=== PATIENT | male | born 1990 | race Caucasian/White ===

== ENCOUNTER 2019-10-12 17:22 | Emergency (ER) | payer OTHER, SELFPAY ==
--- NOTE | 2019-10-12 17:48 | PC.NURSE ---
1745 pt outside using phone.
[2019-10-12 18:15] VITALS: BP 150/92; PULSE 94; RESP 18; TEMP 36.8; O2SAT 98
--- NOTE | 2019-10-12 18:56 | ED_ITS ---
HPI - Alcohol General Chief Complaint: Toxicology Problem Stated Complaint: wants help to stop drinking Time Seen by Provider: 10/12/19 18:43 Source: patient Mode of arrival: Ambulatory Limitations: no limitations History of Present Illness HPI narrative: Patient is a 29-year-old male wanting help with drinking. He states he drinks at least a 12 pack a day, is already had 5 beers today. He when he decreases is drinking he starts getting shakes. He is ready to stop he is getting set up with counseling and therapy in [place]. He would like a detox center. However he is not ready to go there today. Related Data Allergies Allergy/AdvReac Type Severity Reaction Status Date / Time CEPHALEXIN Allergy Intermediate rash Uncoded 02/04/18 11:51 Review of Systems Review of Systems Narrative: GENERAL: Denies chills,fever HEENT: Denies throat pain RESPIRATORY: Denies dyspnea, cough, wheezing CARDIOVASCULAR: Denies chest pain, palpitations GASTROINTESTINAL: Denies nausea, vomiting MUSCULOSKELETAL: Denies extremity pain, injury SKIN: No rash, no laceration, no pruritus NEUROLOGIC: Denies weakness, dizziness, headache, numbness 8 point review of systems is negative except for those stated above and HPI Psychiatric Psychiatric: Reports system reviewed and no additional complaints, except as docu Patient History Social History Smoking Status: Current every day smoker Smoking Status: Current every day smoker alcohol intake frequency: 3 or more drinks per day Alcohol type: beer Substance Use Type: does not use Exam Initial Vital Signs Initial Vital Signs: Vital Signs Temperature 98.2 F 10/12/19 18:15 Pulse Rate 94 H 10/12/19 18:15 Respiratory Rate 18 10/12/19 18:15 Blood Pressure 150/92 H 10/12/19 18:15 Pulse Oximetry 98 10/12/19 18:15 GENERAL: Well-appearing, well-nourished and in no acute distress. CARDIOVASCULAR: peripheral pulses in tact, cap refill <2 sec RESPIRATORY: No respiratory distress, speaks in full sentences without difficulty EXTREMITIES: Normal range of motion, no clubbing or edema. Neurovascularly intact NEUROLOGICAL: Cranial nerves II through XII grossly intact. Normal gait and speech. SKIN: Warm, dry, no petechiae, no rashes or lesions. Course Vital Signs Vital signs: Vital Signs - 8 hr 10/12/19 18:15 Temperature 98.2 F Pulse Rate 94 H Respiratory Rate 18 Blood Pressure 150/92 H Pulse Oximetry 98 MDM - Alcohol MDM Narrative Medical decision making narrative: Patient is still actively drinking he is not seeking treatment today he shows no signs of withdrawal at this time. I discussed with him the process and however works, he is given phone numbers and information to call he will call tomorrow. Discharge Plan Departure Patient Disposition: Home Clinical Impression: Alcohol abuse Discharge Date/Time: 10/12/19 19:20 Instructions: DI for Delirium Tremens, DI for Alcohol Abuse Activity Restrictions/Additional Instructions: *You have been diagnosed with alcohol abuse *What to do: IT IS STRONGLY RECOMMENDED THAT YOU GO THROUGH DETOX UNDER MEDICAL SUPERVISION. You will need to call detox facilities tomorrow. You will need medical clearance done in the emergency department when a bed becomes available *Continue to take medications as directed *Follow up with your primary care provider in 2-3 days [facility] crisis, is one that we generally have most success with *Return to ER if you should have shaking, seizures, passing out or any new, worsening or concerning symptoms Referrals: Alcohol [facility] [Outside] Alcohol [facility] [Outside] Alcohol [facility] [Outside] Alcohol [facility] [Outside] Alcohol [facility] [Outside]
== END 2019-10-12 19:20 | disposition home or self-care (01) ==
PROVIDERS: Emergency Provider Emergency Medicine
DX: F10.20 Alcohol dependence, uncomplicated (principal)
CPT/HCPCS: 99282

== ENCOUNTER 2020-03-21 22:30 | Emergency (ER) | payer OTHER, MEDICAID, SELFPAY ==
[2020-03-21 22:42] VITALS: BP 157/107; PULSE 107; RESP 20; TEMP 36.6; O2SAT 100
--- NOTE | 2020-03-21 22:53 | ED.GENADULT ---
HPI - General Adult General Chief complaint: Toxicology Problem Stated complaint: SSRI withdrawal Time Seen by Provider: 03/21/20 22:40 Source: patient Mode of arrival: Ambulatory Limitations: no limitations History of Present Illness HPI narrative: Patient is a 29-year-old male here for evaluation of 2 issues. Patient states that he has been drinking. His last drink was approximately 1 hour prior to arrival here in the emergency department. He states that he has had issues with alcohol in the past. He does drink on a daily basis. Never withdrawn from alcohol. Has been in a rehab in the past. Is here for help with alcohol he is also here for he states is a withdrawal to his SSRI. He has not been on this medication for at least the past 2 weeks although he is somewhat uncertain as to when he exactly stop this medicine. He states that he stopped it under the direction of his prescribing provider because ?I could not handle the side effects ?patient states that he thinks is withdrawing from this medication because ?my mind is not clear ?he states that he has a difficult time remembering things. He does state that his difficult time saying things and remembering things both when he is sober and when he is drunk to he does not think it is the alcohol causing these problems. He denies any other associated symptoms. Related Data Allergies Allergy/AdvReac Type Severity Reaction Status Date / Time CEPHALEXIN Allergy Intermediate rash Uncoded 02/04/18 11:51 Review of Systems Constitutional Constitutional: Denies fever(s) and Denies headache(s) ENT Ears, Nose, Mouth, and Throat: Denies headache(s) Cardiovascular Cardiovascular: Denies chest pain and Denies dyspnea Respiratory Respiratory: Denies dyspnea Gastrointestinal Gastrointestinal: Denies abdominal pain and Denies vomiting Musculoskeletal Musculoskeletal: Denies myalgias and Denies arthralgias Integumentary/Breasts Skin/Breast: Denies rash Neurologic Neurologic: Reports confusion and Denies headache(s) Comments: Problems remembering and saying things Psychiatric Psychiatric: Reports confusion and Denies suicidal ideation Hematologic/Lymphatic Hematologic/Lymphatic: Denies easy bleeding and Denies easy bruising Allergic/Immunologic Allergic/Immunologic: Denies urticaria Patient History Medical History Alcohol abuse (Acute) Social History Smoking Status: Current every day smoker Smoking Status: Current every day smoker alcohol intake frequency: 3 or more drinks per day Alcohol type: beer Substance Use Type: does not use Exam Initial Vital Signs Initial Vital Signs: Vital Signs Temperature 97.9 F 03/21/20 22:42 Pulse Rate 107 H 03/21/20 22:42 Respiratory Rate 20 03/21/20 22:42 Blood Pressure 157/107 H 03/21/20 22:42 Pulse Oximetry 100 03/21/20 22:42 Const General: cooperative and comfortable HENMT Head: normal to inspection and normocephalic Resp Effort & Inspection: normal respiratory effort Cardio Rate: tachycardic Skin Lesions: no lesions Rashes: no rashes Neuro General: alert, awake and oriented x3 Gait: normal gait Motor: muscle tone normal throughout Extrem General: normal to inspection and No edema Psych Appearance: grossly normal and well kempt Scores GCS [place] coma scale eye opening: Spontaneous Elvira coma scale verbal response: Orientated [place] coma scale motor response: Obey commands Elvira coma scale total score: 15 Course Vital Signs Vital signs: Vital Signs - 8 hr 03/21/20 22:42 Temperature 97.9 F Pulse Rate 107 H Respiratory Rate 20 Blood Pressure 157/107 H Pulse Oximetry 100 Medical Decision Making [facility] Narrative Medical decision making narrative: Informed the patient that I do suspect that much of his speech and memory issues is most likely related to his alcohol use. Did admit to drinking alcohol and being intoxicated. Informed him that it is not my practice to give individuals benzodiazepines for home detox for multiple reasons. Informed him that if he has done this in the past he could talk to his primary doctor about doing this under a strict observation and coordinated program. I informed him I felt that he is not withdrawing from SSRIs. I told him that we could obtain head CT to make sure that this was unremarkable prior to looking for detox facility. Patient initially stated he did not want detox facility. He was okay with obtaining the head CT. Patient asked to go out and smoke a cigarette. I informed him that this would not be possible. I did offer him a nicotine patch. He stated that he needed to go out to his car to ?check on my brother and our dog I informed him that unfortunately a could not let him leave. I told him that since he has checked in he is under our care and that if he when outside and fell or had some other type injury that it would be our responsibility and that he did need to stay in the ER. I discussed other options to include calling his brother were sending someone else out to check on them however he declined. Informed him that if he decided that he wanted to leave that it would be against medical advice and that he would have to check back in in order to be evaluated again. He expressed understanding and stated that he needed to leave to check on his brother. Patient left against medical advice Discharge Plan Departure Patient Disposition: Left Against Medical Advice Clinical Impression: Alcoholic intoxication Discharge Date/Time: 03/21/20 22:50 Stand Alone Forms: Against Medical Advice
== END 2020-03-21 22:50 | disposition left against medical advice (07) ==
PROVIDERS: Emergency Provider Emergency Medicine
DX: F10.129 Alcohol abuse with intoxication, unspecified (principal)

== ENCOUNTER 2020-03-21 22:59 | Emergency (ER) | payer OTHER, MEDICAID, SELFPAY ==
[2020-03-21 23:10] VITALS: BP 148/96; PULSE 93; RESP 18; TEMP 36.5; O2SAT 97
--- NOTE | 2020-03-21 23:16 | DI.CT.S_ITS ---
PROCEDURE: CT HEAD/BRAIN WO CON INDICATIONS: Word-finding issues TECHNIQUE: Noncontrast 4.5 mm thick angled axial sections acquired from the foramen magnum to the vertex, with coronal and sagittal reformats. For radiation dose reduction, the following was used: automated exposure control, adjustment of mA and/or kV according to patient size. COMPARISON: None. FINDINGS: Image quality: Excellent. CSF spaces: Basal cisterns are patent. No extra-axial fluid collections. Ventricles are normal in size and shape. Brain: No midline shift. No intracranial masses or hemorrhage. Hanna-white matter interface is normal. Skull and face: Calvarium and visualized facial bones are intact, without suspicious lesions. Sinuses: Visualized sinuses and mastoids are clear. IMPRESSION: No acute intracranial disease process. Dictated by: Mayra Gavin MD, PhD on 03/22/2020 at 7:28 Approved by: Mayra Gavin MD, PhD on 03/22/2020 at 7:29
--- NOTE | 2020-03-21 23:18 | ED.GENADULT ---
HPI - General Adult General Chief complaint: Toxicology Problem Stated complaint: SSRI withdrawal Time Seen by Provider: 03/21/20 23:15 Source: patient Mode of arrival: Ambulatory Limitations: no limitations History of Present Illness HPI narrative: Please see previous note from earlier today. Patient was just in the emergency department for alcohol intoxication had other issues. He left against medical advice to go check on his brother and dog while in the car and returns to the emergency department for further workup. Related Data Allergies Allergy/AdvReac Type Severity Reaction Status Date / Time CEPHALEXIN Allergy Intermediate rash Uncoded 02/04/18 11:51 Review of Systems Review of Systems Narrative: Patient eloped from the emergency department prior to myself performing any review of systems Patient History Social History Smoking Status: Current every day smoker Smoking Status: Current every day smoker alcohol intake frequency: 3 or more drinks per day Alcohol type: beer Substance Use Type: does not use Exam Narrative Exam Narrative: Patient eloped from the emergency department prior to myself performing any exam Initial Vital Signs Initial Vital Signs: Vital Signs Temperature 97.7 F 03/21/20 23:10 Pulse Rate 93 H 03/21/20 23:10 Respiratory Rate 18 03/21/20 23:10 Blood Pressure 148/96 H 03/21/20 23:10 Pulse Oximetry 97 03/21/20 23:10 Course Orders Ordered: ED Orders 03/21/20 23:16 CT head/brain wo con Stat Vital Signs Vital signs: Vital Signs - 8 hr 03/21/20 23:10 Temperature 97.7 F Pulse Rate 93 H Respiratory Rate 18 Blood Pressure 148/96 H Pulse Oximetry 97 Medical Decision Making Imaging Data CT scan - head: Radiologist's Impression: No acute intracranial abnormality, age appropriate exam MDM Narrative Medical decision making narrative: Please see note from earlier today. Upon this visit a head CT was ordered per my prior discussion with the patient. Upon returning from the head CT the patient again eloped from the emergency department prior to any exam by myself for review of systems by myself. Discharge Plan Departure Patient Disposition: Left Against Medical Advice Clinical Impression: Left against medical advice Alcoholic intoxication Qualifiers: Complication of substance-induced condition: with unspecified complication Qualified Code(s): F10.929 - Alcohol use, unspecified with intoxication, unspecified Discharge Date/Time: 03/21/20 23:44 Stand Alone Forms: Against Medical Advice
== END 2020-03-21 23:44 | disposition left against medical advice (07) ==
PROVIDERS: Emergency Provider Emergency Medicine
CPT/HCPCS: 70450; 99281

== ENCOUNTER 2020-03-21 23:55 | Emergency (ER) | payer OTHER, MEDICAID, SELFPAY ==
[2020-03-22 00:16] VITALS: BP 134/80; PULSE 90; RESP 20; TEMP 36.6; O2SAT 99
--- NOTE | 2020-03-22 00:25 | ED_ITS ---
HPI - General Adult General Chief complaint: Toxicology Problem Stated complaint: withdrawal issue Time Seen by Provider: 03/22/20 00:15 Source: patient Mode of arrival: Ambulatory Limitations: no limitations History of Present Illness HPI narrative: 29-year-old male here for alcohol abuse issues and what he thinks is withdrawal from his SSRI. Please see his prior notes from earlier this evening for when he left Against Medical Advice and then returned and then again eloped before returning this last time in staying in the emergency department. Patient states that he has had a significant alcohol use history. Has been to rehab in the past. States that his last drink was approximately 1 hour prior to his 1st visit here in the emergency department. He also is concerned about withdrawing from his SSRIs he states that he is having problems thinking and forming words both when he is drunk and when he is not drunk and that is what he thinks is his withdrawal symptoms from the SSRI. Upon this visit patient states that he is interested in detox. Related Data Allergies Allergy/AdvReac Type Severity Reaction Status Date / Time CEPHALEXIN Allergy Intermediate rash Uncoded 02/04/18 11:51 Review of Systems Constitutional Constitutional: Denies headache(s) ENT Ears, Nose, Mouth, and Throat: Denies headache(s) Cardiovascular Cardiovascular: Denies chest pain and Denies dyspnea Respiratory Respiratory: Denies dyspnea Musculoskeletal Musculoskeletal: Denies myalgias and Denies arthralgias Integumentary/Breasts Skin/Breast: Denies rash Neurologic Neurologic: Denies headache(s) Comments: Problems thinking and forming words Hematologic/Lymphatic Hematologic/Lymphatic: Denies easy bleeding and Denies easy bruising Patient History Medical History Alcohol abuse (Acute) Social History Smoking Status: Current every day smoker Smoking Status: Current every day smoker alcohol intake frequency: 3 or more drinks per day Alcohol type: beer Substance Use Type: does not use Exam Initial Vital Signs Initial Vital Signs: Vital Signs Temperature 97.9 F 03/22/20 00:16 Pulse Rate 90 03/22/20 00:16 Respiratory Rate 20 03/22/20 00:16 Blood Pressure 134/80 03/22/20 00:16 Pulse Oximetry 99 03/22/20 00:16 Const General: cooperative and comfortable HENMT Head: normal to inspection and normocephalic Resp Effort & Inspection: normal respiratory effort Cardio Rate: regular rate Skin Lesions: no lesions Rashes: no rashes Neuro General: alert, awake and oriented x3 Speech: other (Slurring words) Extrem General: normal to inspection Psych Appearance: grossly normal and well kempt Course Orders Ordered: ED Orders 03/22/20 00:30 Acetaminophen Stat Complete Blood Count AUTO DIFF Stat Comprehensive Metabolic Panel Stat Ethanol (ETOH) Stat Lipase Stat Salicylate Stat 03/22/20 00:34 Urine Drug Screen, Rapid Stat 03/22/20 06:13 Consult to [facility] - Medical Transcription Supervisor Stat Vital Signs Vital signs: Vital Signs - 8 hr 03/22/20 00:16 Temperature 97.9 F Pulse Rate 90 Respiratory Rate 20 Blood Pressure 134/80 Pulse Oximetry 99 Medical Decision Making Lab Data Lab results reviewed: Yes I reviewed the patient's lab results. Result diagrams: 03/22/20 00:30 03/22/20 00:30 Labs: Lab Results 03/21/20 03/22/20 03/22/20 Range/Units 23:45 00:30 00:30 WBC 5.0 (4.5-11.0) X10^3/uL RBC 4.41 L (4.5-5.9) X10^6/uL Hgb 14.1 (13.5-17.5) g/dL Hct 40.6 L (41-53) % MCV 92.1 (80-100) fL MCH 31.9 (26-34) PG MCHC 34.7 (30-36) % RDW 13.7 (11.6-14.8) % Plt Count 181 (150-400) X10^3/uL Neut % (Auto) 48.5 L (50-75) % Lymph % (Auto) 41.2 H (25-40) % Payne % (Auto) 9.0 (3-14) % Eos % (Auto) 0.6 L (2-4) % Baso % (Auto) 0.7 (0-2) % Neut # (Auto) 2400 (8390-1181) /uL Lymph # (Auto) 2000 (6805-5048) /uL Payne # (Auto) 400 (0-900) /uL Eos # (Auto) 0 (0-450) /uL Baso # (Auto) 0 (0-100) /uL Sodium 142 (137-145) mmol/L Potassium 4.1 (3.4-5.1) mmol/L Chloride 100 (98-107) mmol/L Carbon Dioxide 29 (22-32) mmol/L BUN 8 L (9-20) mg/dL Creatinine 0.61 L (0.66-1.25) mg/dL Estimated GFR > 60.0 (>60) mL/min BUN/Creatinine Ratio 13.1 (6-22) Glucose 122 H (70-100) mg/dL Calcium 9.0 (8.4-10.2) mg/dL Total Bilirubin 0.4 (0.2-1.3) mg/dL AST 357 H (17-59) IU/L ALT 153 H (<50) IU/L Alkaline Phosphatase 98 (38-126) U/L Total Protein 8.3 H (6.3-8.2) g/dL Albumin 4.6 (3.5-5.0) g/dL Globulin 3.7 (1.7-4.1) g/dL Albumin/Globulin Ratio 1.2 (1.0-2.8) Lipase 192 (23-300) U/L Salicylates < 1.0 (<20) mg/dL U Opiates 300ng/mL cut Negative (Negative) Ur Oxycodone Screen Negative (Negative) Urine Methadone Screen Negative (Negative) Acetaminophen < 10 L (10-30) ug/mL Ur Barbiturates Screen Negative (Negative) U Tricyclic Antidepress Negative (Negative) Ur Phencyclidine Scrn Negative (Negative) Ur Amphetamines Screen Negative (Negative) U Methamphetamines Scrn Negative (Negative) Ur MDMA Scrn (Ecstasy) Negative (Negative) U Benzodiazepines Scrn Negative (Negative) Urine Cocaine Screen Negative (Negative) U Marijuana (THC) Screen Negative (Negative) Ethyl Alcohol 475 H* ( - 10) mg/dL MDM Narrative Medical decision making narrative: Patient's head CT from earlier visit unremarkable. Labs are also unremarkable except for his elevated alcohol level. Patient has been sleeping all evening. Alcohol level too high for rehab. Patient shows no signs of withdrawal symptoms. Use allowed to sleep in the emergency department overnight. Care turned over to day provider at change of shift to follow up. Social work consult placed.
[2020-03-22 00:43] LABS: Add Manual Diff / Slide Review NO; Basophils Absolute Auto 0 /uL (0-100); Basophils Percent Auto 0.7 % (0-2); Eosinophils Absolute Auto 0 /uL (0-450); Eosinophils Percent Auto 0.6 % (2-4); Hematocrit 40.6 % (41-53); Hemoglobin 14.1 g/dL (13.5-17.5); Lymphocytes Absolute Auto 2000 /uL (1100-4500); Lymphocytes Percent Auto 41.2 % (25-40); Mean Corpuscular HGB Conc 34.7 % (30-36); Mean Corpuscular Hemoglobin 31.9 PG (26-34); Mean Corpuscular Volume 92.1 fL (80-100); Monocytes Absolute Auto 400 /uL (0-900); Neutrophils Absolute Auto 2400 /uL (1500-7000); Neutrophils Percent Auto 48.5 % (50-75); Platelet Count 181 X10^3/uL (150-400); Red Blood Cell Count 4.41 X10^6/uL (4.5-5.9); Red Cell Distribution Width 13.7 % (11.6-14.8)
[2020-03-22 00:46] LABS: UR Morphine/Opiate cutoff 300 Negative (Negative); Ur Creatinine 20 (Normal); Ur Specific Gravity 1.025 (Normal); Urine Amphetamines Negative (Negative); Urine Barbiturates Negative (Negative); Urine Benzodiazepines Negative (Negative); Urine Cocaine Negative (Negative); Urine MDMA Negative (Negative); Urine Methadone Negative (Negative); Urine Methamphetamines Negative (Negative); Urine Oxycodone Negative (Negative); Urine Phencyclidine Negative (Negative); Urine Tetrahydrocannabinol Negative (Negative); Urine Tricyclic Antidepressant Negative (Negative); Urine pH 5 (Normal)
[2020-03-22 00:54] LABS: Acetaminophen < 10 ug/mL (10-30); Alanine Aminotransferase 153 IU/L (<50); Albumin 4.6 g/dL (3.5-5.0); Albumin Globulin Ratio 1.2 (1.0-2.8); Alkaline Phosphatase 98 U/L (38-126); Aspartate Aminotransferase 357 IU/L (17-59); BUN Creatinine Ratio 13.1 (6-22); Bilirubin Total 0.4 mg/dL (0.2-1.3); Blood Urea Nitrogen 8 mg/dL (9-20); Carbon Dioxide 29 mmol/L (22-32); Chloride 100 mmol/L (98-107); Estimated Glomerular Filt Rate > 60.0 mL/min (>60); Globulin 3.7 g/dL (1.7-4.1); Glucose 122 mg/dL (70-100); HEMOLYSIS < 15 (0-50); Lipase 192 U/L (23-300); Potassium 4.1 mmol/L (3.4-5.1); Salicylate < 1.0 mg/dL (<20); Sodium 142 mmol/L (137-145); Total Protein 8.3 g/dL (6.3-8.2)
[2020-03-22 01:07] LABS: Ethanol (ETOH) 475 mg/dL
[2020-03-22 07:30] VITALS: BP 119/73
[2020-03-22 08:18] VITALS: BP 129/91; PULSE 99; RESP 16; O2SAT 99
--- NOTE | 2020-03-22 09:42 | PC.NURSE ---
pt has been accepted to [facility]. pt's brother to come pick him up. Chart being faxed to Facility
[2020-03-22] MEDS: ONDANSETRON 4 MG ODT SL (10:20)
[2020-03-22 10:31] LABS: Ethanol (ETOH) 306 mg/dL
--- NOTE | 2020-03-22 10:35 | PC.NURSE ---
pt vomiting in bathroom, provided zofran odt when done. pt asked to smoke outside, i said that wouldn't be allowed, I told the patient i have ativan to give him once he didn't feel nauseated. pt said he is a 2 pack a day smoker and wanted to smoke. i explained if he wanted to call his brother (who was coming to take him to rehab) to come earlier he could be discharged and could smoke. pt states his brother isn't answering the phone and he said i think i'd like to forgo the whole thing and i don't need the ativan i reported this to GABRIELA Robles.
[2020-03-22] MEDS: LORazepam 0.5 MG TABLET 2 MG PO (10:58)
--- NOTE | 2020-03-22 11:01 | PC.NURSE ---
pt unable to reach his brother, pt still does not want to got to rehab but has agreed to take the ativan after learning his etoh numbers mean he will stay with us a bit longer.
[2020-03-22 13:13] VITALS: BP 128/81; PULSE 91; RESP 12; O2SAT 99
[2020-03-22 14:03] VITALS: BP 124/79; PULSE 112; RESP 12; O2SAT 99
[2020-03-22 15:25] VITALS: BP 119/69; PULSE 113; RESP 12; O2SAT 99
--- NOTE | 2020-03-22 15:26 | PC.NURSE ---
Patient is declining going to rehab. He is alert and oriented and requesting to be discharged. He ambulated around the ED without loss of balance or without reports of dizzyness, lightheadedness. He reports no feelings sedation. He did not stumbled. Gait is normal.
--- NOTE | 2020-03-22 17:03 | PC.NURSE ---
Patient to be picked up by father. He stated that his dad would be taking his car home and that the patient would not be driving for the next 12 hours.
== END 2020-03-22 17:08 | disposition home or self-care (01) ==
PROVIDERS: Emergency Medicine; Emergency Provider Emergency Medicine
DX: F10.129 Alcohol abuse with intoxication, unspecified (principal); Y90.7 Blood alcohol level of 200-239 mg/100 ml
CPT/HCPCS: 36415; 70450; 80053; 80305; 80320; 80329; 83690; 85025; 99281; 99283; 99284; G0480

== ENCOUNTER 2020-08-29 23:26 | Emergency (ER) | payer OTHER, MEDICAID, SELFPAY ==
[2020-08-29 23:35] VITALS: BP 146/96; PULSE 110; RESP 97; TEMP 37; O2SAT 96; BMI 23.0
[2020-08-30] VITALS (13 sets, daily range): BP systolic 113–141; BP diastolic 64–91; PULSE 79–98; RESP 11–16; O2SAT 92–97
[2020-08-30 01:19] LABS: UR Morphine/Opiate cutoff 300 Negative (Negative); Ur Creatinine Normal (Normal); Ur Specific Gravity Normal (Normal); Urine Amphetamines Negative (Negative); Urine Barbiturates Negative (Negative); Urine Benzodiazepines Negative (Negative); Urine Cocaine Negative (Negative); Urine MDMA Negative (Negative); Urine Methadone Negative (Negative); Urine Methamphetamines Negative (Negative); Urine Oxycodone Negative (Negative); Urine Phencyclidine Negative (Negative); Urine Tetrahydrocannabinol Negative (Negative); Urine Tricyclic Antidepressant Negative (Negative); Urine pH Normal (Normal)
[2020-08-30] MEDS: SODIUM CHLORIDE 0.9% 1,000 ML 1000 ML IV (01:23)
[2020-08-30 01:29] LABS: Add Manual Diff / Slide Review NO; Basophils Absolute Auto 0 /uL (0-100); Basophils Percent Auto 0.4 % (0-2); Eosinophils Absolute Auto 100 /uL (0-450); Eosinophils Percent Auto 1.4 % (2-4); Hematocrit 40.8 % (41-53); Hemoglobin 13.8 g/dL (13.5-17.5); Lymphocytes Absolute Auto 1300 /uL (1100-4500); Lymphocytes Percent Auto 35.5 % (25-40); Mean Corpuscular HGB Conc 33.8 % (30-36); Mean Corpuscular Hemoglobin 32.8 PG (26-34); Mean Corpuscular Volume 96.8 fL (80-100); Monocytes Absolute Auto 400 /uL (0-900); Monocytes Percent Auto 11.6 % (3-14); Neutrophils Absolute Auto 1900 /uL (1500-7000); Neutrophils Percent Auto 51.1 % (50-75); Platelet Count 135 X10^3/uL (150-400); Red Blood Cell Count 4.21 X10^6/uL (4.5-5.9); White Blood Cell Count 3.7 X10^3/uL (4.5-11.0)
[2020-08-30 01:35] LABS: WBC Urine None Seen (0-5/HPF)
[2020-08-30 01:36] LABS: Alanine Aminotransferase 133 IU/L (<50); Albumin 4.9 g/dL (3.5-5.0); Albumin Globulin Ratio 1.4 (1.0-2.8); Alkaline Phosphatase 99 U/L (38-126); Aspartate Aminotransferase 219 IU/L (17-59); BUN Creatinine Ratio 14.5 (6-22); Bilirubin Total 0.3 mg/dL (0.2-1.3); Blood Urea Nitrogen 8 mg/dL (9-20); Calcium 8.8 mg/dL (8.4-10.2); Carbon Dioxide 27 mmol/L (22-32); Chloride 99 mmol/L (98-107); Estimated Glomerular Filt Rate > 60.0 mL/min (>60); Globulin 3.6 g/dL (1.7-4.1); Glucose 143 mg/dL (70-100); HEMOLYSIS < 15 (0-50); Lipase 219 U/L (23-300); Magnesium 2.2 mg/dL (1.6-2.3); Potassium 4.1 mmol/L (3.4-5.1); Sodium 140 mmol/L (137-145); Total Protein 8.5 g/dL (6.3-8.2)
--- NOTE | 2020-08-30 01:41 | PC.NURSE ---
Reports recent trigger ed- shared information that upset him and has been drinking for the past few weeks. Has been trying to detox for a year.
[2020-08-30 01:42] LABS: Bacteria Urine Occasional (0-1); Culture Indicated Urine Cult Not Indicated; Granular Casts Urine 0-1/LPF; Hyaline Casts Urine 0-1/LPF; Mucus Urine 1+ (Negative); RBC Urine 0-1/HPF (0-5/HPF); Squamous Epithelial Cell Urine 0-1 /HPF (0-5/HPF)
[2020-08-30 01:44] LABS: Ethanol (ETOH) 345 mg/dL
--- NOTE | 2020-08-30 02:12 | ED_ITS ---
HPI - Alcohol General Chief Complaint: Toxicology Problem Stated Complaint: detoxing, has shakes Time Seen by Provider: 08/30/20 00:49 Source: patient Mode of arrival: Ambulatory Limitations: no limitations History of Present Illness HPI narrative: The patient drinks large amounts of alcohol daily, beer is his drink of choice. His last drink was prior to arrival in the ER. He has multiple visits here, the alcohol level has been generally high. With his tremor, he is alert oriented. He has a prior history of seizure. He drinks daily, he has been to detox previously. He agrees to detox. He denies recent i llness. His no fever, headache or sore throat. His dyspnea. He does have right upper abdominal pannus. He has no associated nausea vomiting. He has no history of hematemesis. He has no chronic medical problems associated with his alcohol use. He is on no meds. Related Data Previous Rx's Medication Instructions Recorded lorazepam [Ativan] 2 mg PO Q6H #9 tab 03/22/20 lorazepam [Ativan] See Rx Instructions .ROUTE 08/30/20 .COMPLEX PRN #14 tab Allergies Allergy/AdvReac Type Severity Reaction Status Date / Time CEPHALEXIN Allergy Intermediate rash Uncoded 02/04/18 11:51 Review of Systems Review of Systems ROS Unobtainable: All systems reviewed & are unremarkable except as noted in HPI and below Constitutional Constitutional: Denies chills, Denies fever(s), Denies headache(s) and Denies weakness Eyes Eyes: Denies change in vision ENT Ears, Nose, Mouth, and Throat: Denies headache(s), Denies neck pain and Denies sore throat Cardiovascular Cardiovascular: Denies chest pain, Denies irregular heart rhythm, Denies lightheadedness and Denies dyspnea Respiratory Respiratory: Denies cough, Denies dyspnea and Denies wheezing Gastrointestinal Gastrointestinal: Reports abdominal pain, Denies diarrhea, Denies nausea and Denies vomiting Musculoskeletal Musculoskeletal: Denies back pain and Denies neck pain Integumentary/Breasts Skin/Breast: Denies pruritus, Denies erythema and Denies rash Neurologic Neurologic: Denies confusion, Denies headache(s) and Denies weakness Comments: Tremor as noted HPI Psychiatric Psychiatric: Denies confusion Allergic/Immunologic Allergic/Immunologic: Denies wheezing Patient History Medical History Alcohol abuse (Acute) Social History Smoking Status: Current every day smoker Smoking Status: Current every day smoker alcohol intake frequency: 3 or more drinks per day Alcohol type: beer Substance Use Type: does not use Exam Initial Vital Signs Initial Vital Signs: Vital Signs Temperature 98.6 F 08/29/20 23:35 Pulse Rate 110 H 08/29/20 23:35 Respiratory Rate 97 H 08/29/20 23:35 Blood Pressure 146/96 H 08/29/20 23:35 Pulse Oximetry 96 08/29/20 23:35 Const General: cooperative, well developed and intoxicated appearing Nutritional Appearance: well nourished [facility] Head: normocephalic and atraumatic Mouth: oral mucosae normal Throat: posterior oropharynx normal Eyes Conjunctivae: conjunctivae normal Sclera: sclerae normal Pupils: PERRL and other (Bilateral nystagmus) Neck Neck: No lymphadenopathy and No JVD Resp Effort & Inspection: normal respiratory effort and able to speak in complete sentences Auscultation: clear to auscultation bilaterally Cardio Rate: regular rate Rhythm: regular rhythm Heart Sounds: S1 normal and S2 normal Pulses: normal peripheral pulses GI Inspection: non-distended Palpation: soft, no hepatosplenomegaly and No guarding Auscultation: normal bowel sounds Back/Spine/Pelvis Back: No CVA tenderness Skin General: no rashes or lesions noted Neuro General: patient alert, patient oriented x3, gait normal and no focal motor deficits Speech: speech normal Other: Slight tremor in the upper extremities Extrem General: full ROM, no pedal edema and no calf tenderness Psych Appearance: well kempt Mental Status: mental status grossly normal Attitude: cooperative Thought Content: normal Course Course Course Narrative: 05:05am. 08/30/20.The patient is alert oriented, despite the acute intoxication. He has had minor tremor only, no further evidence of withdr awal. It is noted he has elevated LFTs, he has right upper quadrant tenderness without evidence of hepatomegaly or ascites. He has agreed to alcohol detox. The Crisis Center has been contacted. He has been interviewed for potential placement for detox. He is clinically stable, he is medically cleared. He will be transferred to the crisis Center, or discharged, depending on the outcome of this interview with the Crisis Center. 06:22. 08/30/20. The patient has been accepted at the Crisis Center for detox. He is discharged from the ER, he will be transported to the Crisis Center by taxi. Orders Ordered: Discontinued Medications Sodium Chloride (Normal Saline 0.9%) 1,000 mls @ 1,000 mls/hr IV BOLUS ONE Stop: 08/30/20 01:48 Last Infusion: 08/30/20 02:54 Dose: 0 mls/hr Documented by: Admin: 08/30/20 01:23 Dose: 1,000 mls/hr Documented by: MONY Magnesium Sulfate 2 gm/ Folic Acid 1 mg/ Thiamine HCl 100 mg / Multivitamins 10 ml/ Sodium Chloride 1,015.2 mls @ 250 mls/hr IV NOW ONE Stop: 08/30/20 05:53 Last Infusion: 08/30/20 06:30 Dose: 0 mls/hr Documented by: Admin: 08/30/20 02:21 Dose: 250 mls/hr Documented by: PRIMO Lorazepam (Ativan) 1 mg PO NOW ONE Stop: 08/30/20 03:35 Last Admin: 08/30/20 03:40 Dose: 1 mg Documented by: PIRMO Lorazepam (Ativan) 1 mg PO NOW ONE Stop: 08/30/20 06:09 Last Admin: 08/30/20 06:30 Dose: 1 mg Documented by: PRIMO Vital Signs Vital signs: Vital Signs - 8 hr 08/29/20 23:35 08/30/20 00:31 08/30/20 01:00 Temperature 98.6 F Pulse Rate 110 H 95 H 89 Respiratory Rate 97 H Blood Pressure 146/96 H 141/89 H 116/68 Pulse Oximetry 96 97 96 08/30/20 01:30 08/30/20 02:00 08/30/20 02:30 Temperature Pulse Rate 91 H 88 98 H Respiratory Rate 16 16 Blood Pressure 120/72 123/72 130/91 H Pulse Oximetry 94 95 08/30/20 03:00 08/30/20 03:30 08/30/20 04:00 Temperature Pulse Rate 94 H 93 H 85 Respiratory Rate 11 L 13 14 Blood Pressure 121/77 120/70 123/65 Pulse Oximetry 95 94 92 08/30/20 04:30 08/30/20 05:00 Temperature Pulse Rate 84 80 Respiratory Rate 14 13 Blood Pressure 122/67 120/64 Pulse Oximetry 94 92 MDM - Alcohol Lab Data Result diagrams: 08/30/20 01:15 08/30/20 01:15 Labs: Lab Results 08/30/20 08/30/20 08/30/20 Range/Units 01:05 01:05 01:15 WBC 3.7 L (4.5-11.0) X10^3/uL RBC 4.21 L (4.5-5.9) X10^6/uL Hgb 13.8 (13.5-17.5) g/dL Hct 40.8 L (41-53) % MCV 96.8 (80-100) fL MCH 32.8 (26-34) PG MCHC 33.8 (30-36) % RDW 13.0 (11.6-14.8) % Plt Count 135 L (150-400) X10^3/uL Neut % (Auto) 51.1 (50-75) % Lymph % (Auto) 35.5 (25-40) % [facility] % (Auto) 11.6 (3-14) % Eos % (Auto) 1.4 L (2-4) % Baso % (Auto) 0.4 (0-2) % Neut # (Auto) 1900 (3510-5534) /uL Lymph # (Auto) 1300 (1359-8765) /uL [facility] # (Auto) 400 (0-900) /uL Eos # (Auto) 100 (0-450) /uL Baso # (Auto) 0 (0-100) /uL Sodium (137-145) mmol/L Potassium (3.4-5.1) mmol/L Chloride (98-107) mmol/L Carbon Dioxide (22-32) mmol/L BUN (9-20) mg/dL Creatinine (0.66-1.25) mg/dL Estimated GFR (>60) mL/min BUN/Creatinine Ratio (6-22) Glucose (70-100) mg/dL Calcium (8.4-10.2) mg/dL Magnesium (1.6-2.3) mg/dL Total Bilirubin (0.2-1.3) mg/dL AST (17-59) IU/L ALT (<50) IU/L Alkaline Phosphatase (38-126) U/L Total Protein (6.3-8.2) g/dL Albumin (3.5-5.0) g/dL Globulin (1.7-4.1) g/dL Albumin/Globulin Ratio (1.0-2.8) Lipase (23-300) U/L Urine RBC 0-1/hpf (0-5/HPF) Urine WBC None seen (0-5/HPF) Ur Squamous Epith Cells 0-1 /hpf (0-5/HPF) Urine Bacteria Occasional (0-1) (None) Hyaline Casts 0-1/lpf (None) Granular Casts 0-1/lpf (None) Urine Mucus 1+ H (Negative) Ur Culture Indicated? Cult not indicated U Opiates 300ng/mL cut Negative (Negative) Ur Oxycodone Screen Negative (Negative) Urine Methadone Screen Negative (Negative) Ur Barbiturates Screen Negative (Negative) U Tricyclic Antidepress Negative (Negative) Ur Phencyclidine Scrn Negative (Negative) Ur Amphetamines Screen Negative (Negative) U Methamphetamines Scrn Negative (Negative) Ur MDMA Scrn (Ecstasy) Negative (Negative) U Benzodiazepines Scrn Negative (Negative) Urine Cocaine Screen Negative (Negative) U Marijuana (THC) Screen Negative (Negative) Ethyl Alcohol ( - 10) mg/dL COVID-19 PCR (Negative) 08/30/20 08/30/20 08/30/20 Range/Units 01:15 02:55 05:15 WBC (4.5-11.0) X10^3/uL RBC (4.5-5.9) X10^6/uL Hgb (13.5-17.5) g/dL Hct (41-53) % MCV (80-100) fL MCH (26-34) PG MCHC (30-36) % RDW (11.6-14.8) % Plt Count (150-400) X10^3/uL Neut % (Auto) (50-75) % Lymph % (Auto) (25-40) % [facility] % (Auto) (3-14) % Eos % (Auto) (2-4) % Baso % (Auto) (0-2) % Neut # (Auto) (6917-8412) /uL Lymph # (Auto) (9335-2768) /uL [facility] # (Auto) (0-900) /uL Eos # (Auto) (0-450) /uL Baso # (Auto) (0-100) /uL Sodium 140 (137-145) mmol/L Potassium 4.1 (3.4-5.1) mmol/L Chloride 99 (98-107) mmol/L Carbon Dioxide 27 (22-32) mmol/L BUN 8 L (9-20) mg/dL Creatinine 0.55 L (0.66-1.25) mg/dL Estimated GFR > 60.0 (>60) mL/min BUN/Creatinine Ratio 14.5 (6-22) Glucose 143 H (70-100) mg/dL Calcium 8.8 (8.4-10.2) mg/dL Magnesium 2.2 (1.6-2.3) mg/dL Total Bilirubin 0.3 (0.2-1.3) mg/dL AST 219 H (17-59) IU/L ALT 133 H (<50) IU/L Alkaline Phosphatase 99 (38-126) U/L Total Protein 8.5 H (6.3-8.2) g/dL Albumin 4.9 (3.5-5.0) g/dL Globulin 3.6 (1.7-4.1) g/dL Albumin/Globulin Ratio 1.4 (1.0-2.8) Lipase 219 (23-300) U/L Urine RBC (0-5/HPF) Urine WBC (0-5/HPF) Ur Squamous Epith Cells (0-5/HPF) Urine Bacteria (None) Hyaline Casts (None) Granular Casts (None) Urine Mucus (Negative) Ur Culture Indicated? U Opiates 300ng/mL cut (Negative) Ur Oxycodone Screen (Negative) Urine Methadone Screen (Negative) Ur Barbiturates Screen (Negative) U Tricyclic Antidepress (Negative) Ur Phencyclidine Scrn (Negative) Ur Amphetamines Screen (Negative) U Methamphetamines Scrn (Negative) Ur MDMA Scrn (Ecstasy) (Negative) U Benzodiazepines Scrn (Negative) Urine Cocaine Screen (Negative) U Marijuana (THC) Screen (Negative) Ethyl Alcohol 345 H 217 H ( - 10) mg/dL COVID-19 PCR Negative (Negative) Urine Dip Bedside Urine Glucose Negative Bedside Urine Bilirubin - Negative Bedside Urine Ketone + 15 Urine Specific [place] 1.025 Bedside Urine Occult Blood - Negative Bedside Urine pH 6.0 Bedside Urine Protein +/- 15 Bedside Urine Urobilinogen - Negative Bedside Urine Nitrite - Negative Bedside Urine Leukocytes - Negative Esterase Discharge Plan Departure Patient Disposition: Released, Other Clinical Impression: Alcohol dependence Qualifiers: Substance use status: uncomplicated Qualified Code(s): F10.20 - Alcohol dependence, uncomplicated Alcoholic hepatitis Qualifiers: Ascites presence: without ascites Qualified Code(s): K70.10 - Alcoholic hepatitis without ascites Discharge Date/Time: 08/30/20 06:45 Instructions: DI for Substance Use Disorder Activity Restrictions/Additional Instructions: The crisis [facility] [place] [facility] been contacted. He has been accepted for alcohol detox. I have started you on Ativan. Further care will be provided at the Crisis Center. Prescriptions: New lorazepam [Ativan] 1 mg tablet See Rx Instructions .ROUTE .COMPLEX PRN (Reason: alcohol withdrawal) Qty: 14 RF: 0 No Action lorazepam [Ativan] 2 mg tablet 2 mg PO Q6H Qty: 9 RF: 0
[2020-08-30] MEDS: MAGNESIUM SULFATE 2 GM, FOLIC ACID 1 MG, THIAMINE 100 MG, MULTIVITAMIN 10 ML in SODIUM ... IV (02:21)
[2020-08-30 03:14] LABS: COVID19 -Nasal RAPID Negative (Negative)
[2020-08-30] MEDS: LORazepam 0.5 MG TABLET 1 MG PO ×2 (03:40→06:30)
[2020-08-30 05:34] LABS: Ethanol (ETOH) 217 mg/dL
== END 2020-08-30 06:45 | disposition home or self-care (01) ==
PROVIDERS: Emergency Provider Emergency Medicine
DX: F10.229 Alcohol dependence with intoxication, unspecified (principal); Y90.8 Blood alcohol level of 240 mg/100 ml or more; K70.10 Alcoholic hepatitis without ascites; R10.9 Unspecified abdominal pain
CPT/HCPCS: 36415; 80053; 80305; 80320; 81003; 81015; 83690; 83735; 85025; 87635; 96360; 96361; 99284; J3475

== ENCOUNTER 2020-11-24 14:53 | Emergency (ER) | payer OTHER, MEDICAID, SELFPAY ==
[2020-11-24 15:03] VITALS: BP 164/105; PULSE 114; RESP 16; TEMP 37.5; O2SAT 95; BMI 24.4
[2020-11-24] MEDS: hydrOXYzine pamoate 25 MG CAPSULE PO (15:25)
--- NOTE | 2020-11-24 15:26 | ED_ITS ---
HPI - Recheck/Abnormal Lab/Rx <IVETH Méndez - Last Filed: 11/24/20 15:53> General Chief Complaint: Recheck/Abnormal Lab/Rx Stated Complaint: NEEDS PRESCRIPTIONS FILLED Time Seen by Provider: 11/24/20 14:56 Source: patient Mode of arrival: Ambulatory Limitations: no limitations History of Present Illness HPI narrative: This is a 30-year-old male, smoker, who has past medical history significant for alcohol abuse and DT presents to ED in request medication refill. Patient request losartan 50 mg with potassium combination pill, Chantix that was prescribed from inpatient detox facility in [facility]. Patient reports he had taken losartan this afternoon and has 2 more doses. Patient has several tabs of Chantix left. He attempted to call Dr. Morales in [facility] but was not able to get in touch. Patient denies chest pain, breathing difficulty states feeling anxious. Patient reports relapsed for ETOH abuse and had used alcohol. Patient states last alcohol drink yesterday. He is considering another treatment but he would like to go through this on his own with medication and requesting Librium. 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 He works as a search engine optimizer. Related Data Previous Rx's Medication Instructions Recorded hydroxyzine HCl 25 mg PO BID PRN #10 tab 11/24/20 losartan 50 mg PO DAILY #14 tab 11/24/20 Allergies Allergy/AdvReac Type Severity Reaction Status Date / Time cephalexin Allergy Verified 11/24/20 15:03 marijuana Allergy Verified 11/24/20 15:03 Review of Systems <IVETH Méndez - Last Filed: 11/24/20 15:53> Review of Systems Narrative: General: Denies fever, chills, fatigue, malaise, sweats. HEENT: Denies sinus pain, ear pain, sore throat, difficulty swallowing, dizziness. Respiratory: Denies dyspnea, cough, wheezing, hemoptysis, sputum. Cardiovascular: Denies chest pain, palpitations, orthopnea, edema. Gastrointestinal: Denies nausea, vomiting, abdominal pain, diarrhea, constipation, melena. : Denies dysuria, frequency, incontinence, hematuria, urinary retention. Musculoskeletal: See HPI Neurologic: Denies weakness, headache, numbness, change in speech, confusion, seizures, incoordination. Psychiatric: See HPI Patient History <IVETH Méndez - Last Filed: 11/24/20 15:53> Medical History Alcohol abuse Hypertension Social History Smoking Status: Current every day smoker Smoking Status: Current every day smoker alcohol intake frequency: 3 or more drinks per day Alcohol type: beer Substance Use Type: does not use Exam <IVETH Méndez - Last Filed: 11/24/20 15:53> Narrative Exam Narrative: General appearance: well developed, well nourished, in no acute distress. Head: normocephalic, atraumatic, no scalp lesions, non-tender. ENT: Hearing grossly intact. Airway patent. Neck/Thyroid: neck supple, full range of motion, no visible masses or meningeal signs. No JVD, non-tender without lymphadenopathy. Skin: no suspicious rashes, lesions over visible areas. Warm and dry and appropriate color for ethnicity. Heart: no clubbing, no cyanosis, no edema. S1 and S2 normal. RRR w/o murmurs, clicks, or bruits. Tachycardia. Lungs: Breathing even and unlabored. No stridor. No accessory muscles used. Able to speak in full sentences. Chest: normal shape and expansion. Abdomen: non-obese, non-distended. Neurologic: alert and oriented. Cognitive exam, ADHESIVE PRIMER and PNS grossly intact on informal exam. Psych: good eye contact, normal affect. Initial Vital Signs Initial Vital Signs: Vital Signs Temperature 99.5 F 11/24/20 15:03 Pulse Rate 114 H 11/24/20 15:03 Respiratory Rate 16 11/24/20 15:03 Blood Pressure 164/105 H 11/24/20 15:03 Pulse Oximetry 95 11/24/20 15:03 <Lynne Lagos DO - Last Filed: 11/25/20 10:57> Initial Vital Signs Initial Vital Signs: Vital Signs Temperature 99.5 F 11/24/20 15:03 Pulse Rate 114 H 11/24/20 15:03 Respiratory Rate 16 11/24/20 15:03 Blood Pressure 164/105 H 11/24/20 15:03 Pulse Oximetry 95 11/24/20 15:03 Scores <Renato MunsonIVETH lim - Last Filed: 11/24/20 15:53> GCS [place] coma scale eye opening: Spontaneous Elvira coma scale verbal response: Orientated [place] coma scale motor response: Obey commands Elvira coma scale total score: 15 Course <Renato MunsonIVETH lim - Last Filed: 11/24/20 15:53> Orders Ordered: Discontinued Medications Hydroxyzine Pamoate (Hydroxyzine Pamoate 25 Mg Capsule) 25 mg PO NOW ONE Stop: 11/24/20 15:15 Last Admin: 11/24/20 15:25 Dose: 25 mg Documented by: MANUEL Vital Signs Vital signs: Vital Signs - 8 hr 11/24/20 15:03 Temperature 99.5 F Pulse Rate 114 H Respiratory Rate 16 Blood Pressure 164/105 H Pulse Oximetry 95 <Lynne Lagos DO - Last Filed: 11/25/20 10:57> Orders Ordered: Discontinued Medications Hydroxyzine Pamoate (Hydroxyzine Pamoate 25 Mg Capsule) 25 mg PO NOW ONE Stop: 11/24/20 15:15 Last Admin: 11/24/20 15:25 Dose: 25 mg Documented by: MANUEL Vital Signs Vital signs: Vital Signs - 8 hr 11/24/20 15:03 Temperature 99.5 F Pulse Rate 114 H Respiratory Rate 16 Blood Pressure 164/105 H Pulse Oximetry 95 [facility] - Recheck/Abnormal Lab/Rx <Renato MunsonCHARLES limP - Last Filed: 11/24/20 15:53> Differential Diagnosis Differential diagnosis: Likely encounter for medication refill and other (anxiety, Lesly-Schlatter disease, HTN) Medical Records Attestation: I reviewed the patient's medical records. [facility] Narrative Medical decision making narrative: This is a 31-year-old male who has history of alcohol dependency, nicotine dependency, anxiety, attention presents to ED with medication refill for losartan/potassium, Chantix, possible Librium and a referral to Orthopedics. This medication have been prescribed previously while he was in inpatient treatment for alcohol detox in [facility]. It was unable to see Rx list in patient's EHR fpr Losartan. It is probably Losartan/Hctz which could not be verified. I do not feel comfortable sending patient home with Librium when he is trying to detox on his own and has a history of DT. I recommended patient for inpatient treatment and I can facilitate this process if patient elects to. At this time, he declined. Patient is tachycardia in ED stating feeling little anxious. Had used hydroxyzine in the past with good effect. Patient provided with 1 tab of hydroxyzine and dc to home with a few tabs. Patient advised continue to reach out to Dr. Morales to discuss medication refill and recent discussed return precautions discussed and he verbalized understanding and agreement with the treatment plan. Discharge Plan Departure Patient Disposition: Home Clinical Impression: Encounter for medication refill, Anxiety Activity Restrictions/Additional Instructions: Your visit to ED today for medication refill. I could not find losartan mixed with potassium in formulary. It may be losartan mixed with hydrochlorothiazide. At this time I have refilled losartan 50 mg daily for 2 weeks. You should follow-up with your primary care physician to have it refilled. Please continue to try to reach out to her PCP for Chantix refill and other medications. A few tabs of hydroxyzine has been ordered for anxiety. These have been transmitted to [facility]. What to do: *Take your medications as directed. *Follow up with your primary care provider in 2-3 days, call for an appointment. Let them know you were seen in the ED and that we asked you to be seen in follow up. *Return to ED if you have any new, worsening, or concerning symptoms, such as [chest pain, breathing difficulty, unable to tolerate fluids, fever, seizures or any acute concerns]. Prescriptions: New losartan 50 mg tablet 50 mg PO DAILY Qty: 14 RF: 0 hydroxyzine HCl 25 mg tablet 25 mg PO BID PRN (Reason: anxiety) Qty: 10 RF: 0 Referrals: [facility] [Provider Group] Herb Morales MD [Non-Staff] - <Lynne Lagos DO - Last Filed: 11/25/20 10:57> Cosign ED Attending Muniraature Attestation: I was immediately available in the department for consultation. Documentation has been reviewed. I agree with assessment and plan.
[2020-11-24 15:43] VITALS: BP 152/88; PULSE 99; RESP 15; O2SAT 99
== END 2020-11-24 15:50 | disposition home or self-care (01) ==
PROVIDERS: Emergency Provider Nurse Practitioner Family
DX: Z76.0 Encounter for issue of repeat prescription (principal); F41.9 Anxiety disorder, unspecified; I10 Essential (primary) hypertension
CPT/HCPCS: 99281; 99283

== ENCOUNTER 2021-03-14 18:46 | Observation (INO) | payer OTHER, MEDICAID, SELFPAY ==
[2021-03-14] VITALS (14 sets, daily range): BP systolic 131–171; BP diastolic 75–110; PULSE 69–105; RESP 11–22; TEMP 36.9–37.1; O2SAT 94–99; BMI 23.7; BMI 23.0
[2021-03-14] MEDS: SODIUM CHLORIDE 0.9% 1,000 ML 1000 ML IV (19:44)
[2021-03-14] MEDS: ONDANSETRON 4 MG/2 ML INJ IV (19:46)
[2021-03-14 19:47] LABS: Add Manual Diff / Slide Review NO; Basophils Absolute Auto 100 /uL (0-100); Basophils Percent Auto 1.1 % (0-2); Eosinophils Absolute Auto 0 /uL (0-450); Eosinophils Percent Auto 0.5 % (2-4); Hematocrit 41.1 % (41-53); Hemoglobin 14.1 g/dL (13.5-17.5); Lymphocytes Absolute Auto 2400 /uL (1100-4500); Lymphocytes Percent Auto 29.2 % (25-40); Mean Corpuscular HGB Conc 34.2 % (30-36); Mean Corpuscular Hemoglobin 31.3 PG (26-34); Mean Corpuscular Volume 91.5 fL (80-100); Monocytes Absolute Auto 700 /uL (0-900); Neutrophils Absolute Auto 5100 /uL (1500-7000); Neutrophils Percent Auto 61.2 % (50-75); Platelet Count 342 X10^3/uL (150-400); Red Blood Cell Count 4.49 X10^6/uL (4.5-5.9); Red Cell Distribution Width 14.6 % (11.6-14.8); White Blood Cell Count 8.4 X10^3/uL (4.5-11.0)
[2021-03-14 19:48] LABS: Alanine Aminotransferase 33 IU/L (<50); Albumin 4.8 g/dL (3.5-5.0); Albumin Globulin Ratio 1.4 (1.0-2.8); Alkaline Phosphatase 83 U/L (38-126); Aspartate Aminotransferase 43 IU/L (17-59); BUN Creatinine Ratio 15.3 (6-22); Bilirubin Total 0.4 mg/dL (0.2-1.3); Blood Urea Nitrogen 9 mg/dL (9-20); Calcium 9.6 mg/dL (8.4-10.2); Carbon Dioxide 24 mmol/L (22-32); Chloride 98 mmol/L (98-107); Estimated Glomerular Filt Rate > 60.0 mL/min (>60); Ethanol (ETOH) 171 mg/dL; Globulin 3.4 g/dL (1.7-4.1); Glucose 133 mg/dL (70-100); HEMOLYSIS < 15 (0-50); Potassium 3.5 mmol/L (3.4-5.1); Sodium 138 mmol/L (137-145); Total Protein 8.2 g/dL (6.3-8.2)
[2021-03-14] MEDS: LORazepam 2 MG/ML INJ IV (19:49)
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
[2021-03-14 21:01] LABS: COVID19 - ADMIT (NP swab/PCR) POSITIVE (Negative)
--- NOTE | 2021-03-14 23:24 | PC.ADMIT ---
[address] Admission Note: A/O x4, pt arrived via wheelchair from ED, able to ambulate to bed, connected to monitoring equipment, changed into gown, oriented to room and call light system. Seizure pads in place, bed alarm on, report given to on coming nurse, no further patient contact The patient,Ken Donnelly,30 y/o, was given written information regarding hospital policies, unit procedures and contact persons. Patient's smoking status: Current every day smoker. Vital Signs - 8 hr 03/14/21 19:00 03/14/21 19:10 03/14/21 19:30 Temperature 98.8 F Pulse Rate 96 H 105 H 90 Respiratory Rate 16 11 L Blood Pressure 171/110 H Pulse Oximetry 98 97 97 03/14/21 20:00 03/14/21 20:16 03/14/21 20:30 Temperature Pulse Rate 88 88 82 Respiratory Rate 19 15 22 Blood Pressure 137/94 H 136/92 H Pulse Oximetry 96 97 98 03/14/21 21:00 03/14/21 23:05 Temperature 98.4 F Pulse Rate 81 76 Respiratory Rate 18 17 Blood Pressure 134/88 156/94 H Pulse Oximetry 98 99
[2021-03-15] VITALS (7 sets, daily range): BP systolic 136–142; BP diastolic 88–90; PULSE 73–96; RESP 13–17; TEMP 36.6–37.1; O2SAT 96–98
[2021-03-15] MEDS: THIAMINE 100 MG TABLET PO ×2 (01:13→08:18)
[2021-03-15] MEDS: MULTIVITAMIN 1 TABLET 1 TAB PO ×2 (01:13→08:17)
[2021-03-15] MEDS: FOLIC ACID 1 MG TABLET PO ×2 (01:13→08:17)
[2021-03-15] MEDS: LORazepam 1 MG TABLET 2 MG PO (04:05)
--- NOTE | 2021-03-15 04:09 | ED.GENADULT ---
HPI - General Adult General Chief complaint: Toxicology Problem Stated complaint: alcohol withdrawl Time Seen by Provider: 03/14/21 19:09 Source: patient Mode of arrival: Ambulatory Limitations: no limitations History of Present Illness HPI narrative: 30-year-old gentleman with a history of alcohol use disorder who was discharged from a 30 day inpatient alcohol treatment program at [facility] approximately 5 days ago. He remained free from alcohol for approximately 48 hours and has been on a 72 hour drinking binge. He has a detox bed available to him in [place] tomorrow and safe and sober living available to him after he completes detox. He comes in to the ER for help with withdrawal symptoms. 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 He is having worsening withdrawal symptoms on his 3rd day of drinking despite trying to again cut back. He describes no fevers, cough, chills, palpitations, nausea. He has had some vomiting related to his heavy alcohol use. No diarrhea, abdominal pain, dysuria. No falls, recent trauma or headaches. Related Data Previous Rx's Medication Instructions Recorded losartan 50 mg PO DAILY #14 tab 11/24/20 Allergies Allergy/AdvReac Type Severity Reaction Status Date / Time cephalexin Allergy Verified 03/14/21 19:07 marijuana Allergy Verified 03/14/21 19:07 ssri Allergy Uncoded 03/14/21 19:07 Review of Systems Review of Systems Narrative: Remainder of complete review of systems is otherwise unremarkable except for that included in the HPI. Patient History Medical History Alcohol abuse COVID-19 Hypertension Social History household members: none Smoking Status: Current every day smoker Smoking Status: Current every day smoker alcohol intake frequency: 3 or more drinks per day Alcohol type: beer Substance Use Type: does not use Exam Narrative Exam Narrative: General: Healthy appearing, in no acute distress. Able to give a complete and coherent history. Well-nourished well-developed HEENT: Moist mucous membranes, normal sclera with reactive pupils, mildly injected sclera Respiratory: Lungs are clear to auscultation, no wheezing no rales no rhonchi. Full and symmetrical air movement Cardiac: Mild tachycardia but Regular rate and rhythm no murmurs no bruits Abdomen: Soft, nontender, good bowel tones, no flank pain Skin: Warm and dry, no rashes Neurologic: Grossly neurologically intact with no obvious asymmetries or abnormalities Extremities: No trauma, well perfused Psych: Cooperative, affable, appropriate insight, fluent speech minimal signs of acute intoxication at this time Initial Vital Signs Initial Vital Signs: Vital Signs Temperature 98.8 F 03/14/21 19:00 Pulse Rate 96 H 03/14/21 19:00 Respiratory Rate 16 03/14/21 19:00 Blood Pressure 171/110 H 03/14/21 19:00 Pulse Oximetry 98 03/14/21 19:00 Course Orders Ordered: ED Orders 03/14/21 19:55 COVID19 - ADMIT (RE[employer]ER swab/PCR) Stat 03/14/21 20:00 Consult to MODELING AND SIMULATION ANALYST - Dining Host Stat Acetaminophen (Acetaminophen 325 Mg Tablet) 650 mg PO Q6HR PRN PRN Reason: Fever/Mild Pain (1-3) Enoxaparin Sodium (Enoxaparin 40 Mg/0.4 Ml Syringe) 40 mg SUBCUT DAILY [facility] Folic Acid (Folic Acid 1 Mg Tablet) 1 mg PO DAILY [facility] Last Admin: 03/15/21 01:13 Dose: 1 mg Documented by: LILIANA Labetalol HCl (Labetalol 20 Mg/4 Ml Syringe) 10 mg IV Q4HR PRN PRN Reason: Heart Rate- High Lorazepam (Lorazepam 1 Mg Tablet) 2 mg PO Q4HR PRN; Protocol PRN Reason: Alcohol Withdrawal Last Admin: 03/15/21 04:05 Dose: 2 mg Documented by: LILIANA Losartan Potassium (Losartan 50 Mg Tablet) 50 mg PO DAILY [facility] Multivitamins (Multivitamin 1 Tablet) 1 tab PO DAILY [facility] Last Admin: 03/15/21 01:13 Dose: 1 tab Documented by: LILIANA Naloxone HCl (Naloxone 0.4 Mg/Ml Vial) 0.2 mg IV Q2MIN PRN PRN Reason: Opiate Reversal Ondansetron HCl (Ondansetron 4 Mg/2 Ml Inj) 4 mg IV Q6HR PRN PRN Reason: Nausea And Vomiting Thiamine HCl (Thiamine 100 Mg Tablet) 100 mg PO DAILY [facility] Stop: 03/17/21 09:01 Last Admin: 03/15/21 01:13 Dose: 100 mg Documented by: LILIANA Discontinued Medications Sodium Chloride (Normal Saline 0.9%) 1,000 mls @ 1,000 mls/hr IV BOLUS ONE Stop: 03/14/21 20:34 Last Infusion: 03/14/21 20:50 Dose: 0 mls/hr Documented by: Admin: 03/14/21 19:44 Dose: 1,000 mls/hr Documented by: [email or web address] Lorazepam (Lorazepam 2 Mg/Ml Inj) 2 mg IV NOW ONE Stop: 03/14/21 19:36 Last Admin: 03/14/21 19:49 Dose: 2 mg Documented by: [email or web address] Ondansetron HCl (Ondansetron 4 Mg/2 Ml Inj) 4 mg IV NOW ONE Stop: 03/14/21 19:36 Last Admin: 03/14/21 19:46 Dose: 4 mg Documented by: [email or web address] Vital Signs Vital signs: Vital Signs - 8 hr 03/14/21 20:16 03/14/21 20:30 03/14/21 21:00 Pulse Rate 88 82 81 Respiratory Rate 15 22 18 Blood Pressure 137/94 H 136/92 H 134/88 Pulse Oximetry 97 98 98 03/14/21 21:30 03/14/21 22:00 Pulse Rate 93 H 94 H Respiratory Rate 18 14 Blood Pressure 131/75 133/81 Pulse Oximetry 94 94 Medical Decision Making Medical Records Medical records reviewed: Yes I reviewed the patient's medical records. Lab Data Lab results reviewed: Yes I reviewed the patient's lab results. Result diagrams: 03/14/21 19:10 03/14/21 19:10 Labs: Lab Results 03/14/21 03/14/21 03/14/21 Range/Units 19:10 19:10 19:55 WBC 8.4 (4.5-11.0) X10^3/uL RBC 4.49 L (4.5-5.9) X10^6/uL Hgb 14.1 (13.5-17.5) g/dL Hct 41.1 (41-53) % MCV 91.5 (80-100) fL MCH 31.3 (26-34) PG MCHC 34.2 (30-36) % RDW 14.6 (11.6-14.8) % Plt Count 342 (150-400) X10^3/uL Neut % (Auto) 61.2 (50-75) % Lymph % (Auto) 29.2 (25-40) % [place] % (Auto) 8.0 (3-14) % Eos % (Auto) 0.5 L (2-4) % Baso % (Auto) 1.1 (0-2) % Neut # (Auto) 5100 (9327-9079) /uL Lymph # (Auto) 2400 (5401-1366) /uL [place] # (Auto) 700 (0-900) /uL Eos # (Auto) 0 (0-450) /uL Baso # (Auto) 100 (0-100) /uL Sodium 138 (137-145) mmol/L Potassium 3.5 (3.4-5.1) mmol/L Chloride 98 (98-107) mmol/L Carbon Dioxide 24 (22-32) mmol/L BUN 9 (9-20) mg/dL Creatinine 0.59 L (0.66-1.25) mg/dL Estimated GFR > 60.0 (>60) mL/min BUN/Creatinine Ratio 15.3 (6-22) Glucose 133 H (70-100) mg/dL Calcium 9.6 (8.4-10.2) mg/dL Total Bilirubin 0.4 (0.2-1.3) mg/dL AST 43 (17-59) IU/L ALT 33 (<50) IU/L Alkaline Phosphatase 83 (38-126) U/L Total Protein 8.2 (6.3-8.2) g/dL Albumin 4.8 (3.5-5.0) g/dL Globulin 3.4 (1.7-4.1) g/dL Albumin/Globulin Ratio 1.4 (1.0-2.8) Ethyl Alcohol 171 H ( - 10) mg/dL SARS-CoV-2 (PCR) Positive H (Negative) MDM Narrative Medical decision making narrative: 30-year-old gentleman presents requesting help with his alcohol use disorder and withdrawal syndrome in light of return to heavy drinking and history of withdrawal seizures. Part of his routine workup COVID study was done and was surprisingly remarkable. Apparently he had been test regularly well in the [facility] from which he was released 5 days ago. He does not complain of any COVID symptoms at this time. His initial CIWA score was 13 with an alcohol level of 173. In light of positive COVID test he will not be allowed into a detox facility and clearly needs help with detox. Will plan to admit him to [facility] for medical detox. Does not need hospital admission for his relatively asymptomatic COVID infection at this time. We did discuss the appropriateness of either dexamethasone or antibody therapy. Antibody therapy is not indicated with hospital admission however he is not being admitted for his COVID and is not hypoxic and may still be a perfect candidate for this. The hospitalist will review with Infectious Disease provider for further consideration. At this point he is safe for admission to the floor. Discharge Plan Departure Patient Disposition: Admitted As Inpatient Clinical Impression: COVID-19 Alcoholic intoxication Qualifiers: Complication of substance-induced condition: uncomplicated Qualified Code(s): F10.920 - Alcohol use, unspecified with intoxication, uncomplicated Alcohol withdrawal Qualifiers: Complication of substance-induced condition: uncomplicated Qualified Code(s): F10.230 - Alcohol dependence with withdrawal, uncomplicated Admit Date/Time: 03/14/21 22:04 Admit Provider: Ritu Abbasi
--- NOTE | 2021-03-15 04:11 | P.HP_ITS ---
History of Present Illness History of Present Illness Date Patient Seen: 03/14/21 Time Patient Seen: 23:00 Chief complaint: alcohol withdrawl Narrative: Ken Donnelly is a 30-year-old male with a history of high blood pressure who presented today in the emergency department with alcohol withdrawal symptoms. He had just been in an inpatient rehab program in [place] and had been discharged 2 days ago. He then states that he had a discussion with his parents , had a trigger, and started binge drinking again. His last drink was at 1700 on March 14. He is actually currently due to be admitted to a longer-term rehab facility today or tomorrow. 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 Standard inpatient screening al so revealed that he was COVID-19 positive and had tested negative yesterday. He does not complain and it any respiratory symptoms or GI symptoms. He denies fevers sweats or chills, cough, shortness of breath, chest pain, dysuria, diarrhea or constipation. He does endorse having chronic depression. Patient was administered a bolus of normal saline, 1 L. Patient is afebrile, blood pressure 142/90, heart rate 80, respiratory rate 13, oxygen saturation 96% on room air, he weighs 77 kilos with a BMI of 23. CBC and BMP are unremarkable, glucose is 133, an COVID-19 PCR is positive. Patient History Medical History Alcohol abuse COVID-19 Hypertension Surgical History No history of previous surgery Family & Social History Family History Other First degree relatives alive and well Social History: household members none Prior Living Arrangements House Safety & Behavioral: Feels Safe in Current Yes Environment Been Physically Hurt or No Threatened By a Person Suicidal Ideation Description None Suicide Plan Description No Plan Tobacco & Substance use: Smoking Status Current every day smoker alcohol intake frequency 6 pack of beer and and almost the whole number of hard liquor shots Substance Use Type does not use Meds Home Medications and Allergies Home Medications Medication Instructions Recorded Confirmed Type losartan 50 mg PO DAILY #14 tab 11/24/20 03/14/21 Rx Allergies Allergy/AdvReac Type Severity Reaction Status Date / Time cephalexin Allergy Verified 03/14/21 19:07 marijuana Allergy Verified 03/14/21 19:07 ssri Allergy Uncoded 03/14/21 19:07 Review of Systems Review of Systems ROS: Yes All systems reviewed with the patient and are negative except as otherwise documented Exam Vital Signs (past 8 hours): - 03/14/21 20:16 03/14/21 20:30 03/14/21 21:00 Temperature Pulse Rate 88 82 81 Respiratory Rate 15 22 18 Blood Pressure 137/94 H 136/92 H 134/88 Pulse Oximetry 97 98 98 03/14/21 21:30 03/14/21 22:00 03/14/21 22:38 Temperature Pulse Rate 93 H 94 H 80 Respiratory Rate 18 14 Blood Pressure 131/75 133/81 161/104 H Pulse Oximetry 94 94 98 03/14/21 22:40 03/14/21 23:00 03/14/21 23:05 Temperature 98.4 F Pulse Rate 69 84 76 Respiratory Rate 15 17 Blood Pressure 156/94 H 156/94 H Pulse Oximetry 99 95 99 03/14/21 23:30 03/15/21 00:00 03/15/21 00:30 Temperature 97.8 F Pulse Rate 85 87 83 Respiratory Rate 16 17 15 Blood Pressure Pulse Oximetry 95 96 96 03/15/21 01:08 03/15/21 03:56 Temperature 98.8 F Pulse Rate 80 Respiratory Rate 13 Blood Pressure 142/90 H Pulse Oximetry 98 96 Oxygen Delivery Method Room Air Oxygen Flow Rate 0 Narrative Exam Narrative: Gen: Alert, oriented, well-developed 30 y.o. male, flushed appearing HEENT: normocephalic, atraumatic, conjunctiva clear, sclera non-icteric, oral mucosa pink and moist Neck: supple, full ROM, no JVD, trachea is midline Resp: Lungs CTA, non-labored breathing CV: RRR, no murmur or rubs Abd: soft, non-tender, normoactive BTs Skin: no lesions or rashes, dry and intact Neuro: Trace tremors, Alert and oriented X 4 w/no focal deficits. Speech clear and coherent. Extremities: moves all 4 extremities, is ambulatory, negative Dawson?s sign Psyche: normal mood and affect with admitted anxiety. Objective Labs Result Diagrams: 03/14/21 19:10 03/14/21 19:10 Labs: Laboratory Results - last 24 hr 03/14/21 03/14/21 03/14/21 19:10 19:10 19:55 WBC 8.4 RBC 4.49 L Hgb 14.1 Hct 41.1 MCV 91.5 MCH 31.3 MCHC 34.2 RDW 14.6 Plt Count 342 Neut % (Auto) 61.2 Lymph % (Auto) 29.2 [place] % (Auto) 8.0 Eos % (Auto) 0.5 L Baso % (Auto) 1.1 Neut # (Auto) 5100 Lymph # (Auto) 2400 [place] # (Auto) 700 Eos # (Auto) 0 Baso # (Auto) 100 Sodium 138 Potassium 3.5 Chloride 98 Carbon Dioxide 24 BUN 9 Creatinine 0.59 L Estimated GFR > 60.0 BUN/Creatinine Ratio 15.3 Glucose 133 H Calcium 9.6 Total Bilirubin 0.4 AST 43 ALT 33 Alkaline Phosphatase 83 Total Protein 8.2 Albumin 4.8 Globulin 3.4 Albumin/Globulin Ratio 1.4 Ethyl Alcohol 171 H SARS-CoV-2 (PCR) Positive H Assessment & Plan Assessment & Plan narrative: Ken Donnelly is a 30-year-old male with a past medical history of alcohol withdrawal and seizures who will be admitted for alcohol withdrawal to the intensive care unit for close monitoring. Alcohol withdrawal, acute, present on admission -alcohol level was 171 -[facility] protocol -seizure precautions -patient is able to have a normal diet with oral thiamine, folic acid and multivitamins Essential Hypertension, not well controlled, present on admission -continue home dose of losartan 50 mg p.o. daily -he is written for labetalol as needed IV COVID-19 positive, incidental finding on screening -patient was -1 day prior to admission then positive on day of mid admission -consider administration of monoclonal antibodies, however patient may not be eligible due to his inpatient status VTE prophylaxis: Wells risk score: [] [] Enoxaparin 40 mg subQ daily [] Bilateral SCDs Consults: none Patient is admitted under inpatient status with expected length of stay greater than 2 midnights due to severity of presenting symptoms, risk of adverse event, and complexity of treatment plan. FEN: IV saline lock, general diet, BMP and magnesium in the am. Dispo: Patient was to have been able to be discharged to longer-term alcohol rehab however it is unlikely they will accept him given his positive COVID sta tus. Code Status: Full code as discussed with patient Scores Wells' Criteria for PE Clinical signs and symptoms of DVT: No PE is #1 Dx or equally likely: No Heart rate > 100: No Immobilization at least 3 days or surg in previous 4 weeks: No History of PE or DVT: No Hemoptysis: No Malignancy w/Treatment within 6 months or palliative: No Wells' PE Score total: 0 Quality VTE Deep Vein Thrombosis/Pulmonary Embolism Present on Admission: No MIPS - Admit I confirm the patient?s Advance Care Plan is present, Code status is documented, Surrogate decision maker is in patient?s record [If Yes, STOP here]: Yes
[2021-03-15 05:12] LABS: Add Manual Diff / Slide Review NO; Basophils Absolute Auto 0 /uL (0-100); Basophils Percent Auto 0.7 % (0-2); Eosinophils Absolute Auto 200 /uL (0-450); Eosinophils Percent Auto 2.9 % (2-4); Hematocrit 37.1 % (41-53); Hemoglobin 12.5 g/dL (13.5-17.5); Lymphocytes Absolute Auto 2700 /uL (1100-4500); Lymphocytes Percent Auto 46.2 % (25-40); Mean Corpuscular HGB Conc 33.8 % (30-36); Mean Corpuscular Hemoglobin 30.9 PG (26-34); Mean Corpuscular Volume 91.3 fL (80-100); Monocytes Absolute Auto 500 /uL (0-900); Monocytes Percent Auto 8.2 % (3-14); Neutrophils Absolute Auto 2500 /uL (1500-7000); Platelet Count 284 X10^3/uL (150-400); Red Blood Cell Count 4.06 X10^6/uL (4.5-5.9); Red Cell Distribution Width 14.4 % (11.6-14.8); White Blood Cell Count 5.9 X10^3/uL (4.5-11.0)
[2021-03-15 05:22] LABS: Alanine Aminotransferase 28 IU/L (<50); Albumin 3.8 g/dL (3.5-5.0); Albumin Globulin Ratio 1.4 (1.0-2.8); Alkaline Phosphatase 54 U/L (38-126); Aspartate Aminotransferase 39 IU/L (17-59); BUN Creatinine Ratio 15.5 (6-22); Bilirubin Total 0.5 mg/dL (0.2-1.3); Bilirubin Unconjugated 0.5 mg/dL (0.0-1.1); Blood Urea Nitrogen 9 mg/dL (9-20); Carbon Dioxide 27 mmol/L (22-32); Chloride 101 mmol/L (98-107); Estimated Glomerular Filt Rate > 60.0 mL/min (>60); Globulin 2.8 g/dL (1.7-4.1); Glucose 89 mg/dL (70-100); HEMOLYSIS 20 (0-50); Magnesium 1.9 mg/dL (1.6-2.3); Potassium 3.6 mmol/L (3.4-5.1); Sodium 137 mmol/L (137-145); Total Protein 6.6 g/dL (6.3-8.2)
[2021-03-15] MEDS: ENOXAPARIN 40 MG/0.4 ML SYRINGE SUBCUT (08:17)
[2021-03-15] MEDS: LOSARTAN 50 MG TABLET PO (08:18)
[2021-03-15] MEDS: ONDANSETRON 4 MG/2 ML INJ IV (08:25)
[2021-03-15] MEDS: LORazepam 1 MG TABLET PO (09:03)
--- NOTE | 2021-03-15 09:52 | PC.NURSE ---
Addendum entered by Prudencio Aguila R.N. 03/15/21 14:21: Pt has been mostly sleeping since AM ativan given. States he hasn't slept in about 2 weeks so he is playing catch up. Pt able to stand at the side of the bed independently and void per urinal. Reports feeling mildly queasy and requesting soft foods such as applesauce. Provided some applesauce, pears, ariane bishnu, crackers, etc. Pt tolerating small amounts of PO. Calm and cooperative with care. Addendum entered by Prudencio Aguila R.N. 03/15/21 10:17: Bladder scan done showing 193 ML. Encouraged PO fluids. Original Note: Pt reports mild nausea on initial assessment. Medicated with IV zofran. Pt noted to be resting comfortably with eyes closed after. Awoke pt to see if he would like breakfast now. Reports continued nausea. Requesting ativan. CIWA assessed at 5. Unable to medicate per protocol. Notified Dr. Sharpe. Orders received for one time dose of PO ativan. Pt states he feels he can take his medications without vomiting at this time. Declines urge to void. No void noted over night. Reported to Dr. Sharpe. Instructed to bladder scan.
--- NOTE | 2021-03-15 14:22 | CM.DPNOTE ---
DC Note Reviewed ED DIRECTOR MEDICAL SAFETY Hetal's note, which indicated that patient could drive himself to detox once medically stable for DC from . Patient DC from [facility] in [place] approx 5 days ago. Received VM from alyx Gillespie CM at [facility]# [phone], he explained he left a text msg on patient's phone. Jose Miguel stated he was hopeful patient would access services through [facility] or another substance use disorder treatment agency upon DC to assist in patient's goal of sobriety. Patient COVID-19+ per test completed 03.14.21 at 1954 so placed call to patient's cell phone. Introduced role and reviewed potential for DC today. Patient asked for an additional COVID-19 test, which, according to Dr Sharpe, would not be valid until 1954 this evening. Patient had planned to drive up to [facility] for additional detox/treatment services but will not be admitted w/COVID-[address] to drive himself home to [place] and denies needs from this DIRECTOR MEDICAL SAFETY. Patient requests the remainder of his taper/ medications to assist in detox at home. Advised that he discuss this w/Dr Sharpe. Updated ROSA Savage and Dr Sharpe re: patient's plan . Patient expected to DC home this evening once safe to do so (ativan dose given this AM per ROSA Savage) Plan: DC home via private vehicle, advised to quarantine, f/u w/outpatient services when safe to do so JW
--- NOTE | 2021-03-15 14:24 | PM.DS.1 ---
History of Present Illness History of Present Illness Date Patient Seen: 03/15/21 Time Patient Seen: 14:24 Chief complaint: alcohol withdrawl Narrative: Per IVETH Quiroz: Ken Donnelly is a 30-year-old male with a history of high blood pressure who presented today in the emergency department with alcohol withdrawal symptoms. He had just been in an inpatient rehab program in [place] and had been discharged 2 days ago. He then states that he had a discussion with his parents, had a trigger, and started binge drinking again. His last drink was at 1700 on March 14. He is actually currently due to be admitted to a longer-term rehab facility today or tomorrow. 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 Standard inpatient screening also revealed that he was COVID-19 positive and had tested negative yesterday. He does not complain and it any respiratory symptoms or GI symptoms. He denies fevers sweats or chills, cough, shortness of breath, chest pain, dysuria, diarrhea or constipation. He does endorse having chronic depression. Patient was administered a bolus of normal saline, 1 L. Patient is afebrile, blood pressure 142/90, heart rate 80, respiratory rate 13, oxygen saturation 96% on room air, he weighs 77 kilos with a BMI of 23. CBC and BMP are unremarkable, glucose is 133, an COVID-19 PCR is positive. Discharge Providers Provider Date of admission: 03/14/21 22:04 Discharge Date: 03/15/21 Primary care physician: Herb Morales MD Consults: 03/14/21 20:00 Consult to [facility] [place] - [employer] Stat Comment: Discharge provider: Quintin Sharpe DO Summary Hospital Course Discharge Diagnosis: Alcohol withdrawal, acute, present on admission Essential Hypertension, present on admission COVID-19 positive, incidental finding on screening Hospital Course: Ken Donnelly is a 30-year-old male with a past medical history of alcohol withdrawal and seizures who was admitted for observation of his alcohol withdrawal given his history of withdrawal seizures. During his stay, he developed no severe symptoms of withdrawal, and appeared well after only a few doses of ativan over the course of his stay. During admission screening, he tested positive for COVID 19, and he was asymptomatic during his stay. He unfortunately could not return to an alcoholic rehab given his COVID 19 + testing. Patient was discharged on a librium taper as a precaution given his history, he denied wanting any additional resources from our health and social care teacher. Exam Vital Signs (past 8 hours): - 03/15/21 08:15 03/15/21 12:36 Temperature 98.3 F 98.7 F Pulse Rate 82 96 H Respiratory Rate 16 14 Blood Pressure 136/90 138/88 Pulse Oximetry 98 98 Oxygen Delivery Method Room Air Oxygen Flow Rate 0 Narrative Exam Narrative: Gen: Alert, oriented, well-developed 30 y.o. male, no acute distress HEENT: normocephalic, atraumatic, conjunctiva clear, sclera non-icteric, oral mucosa pink and moist Neck: supple, full ROM, no JVD, trachea is midline Resp: Lungs CTA, non-labored breathing CV: RRR, no murmur or rubs Abd: soft, non-tender, normoactive BTs Skin: no lesions or rashes, dry and intact Neuro: no tremor, Alert and oriented X 4 w/no focal deficits. Speech clear and coherent. Extremities: moves all 4 extremities, is ambulatory, negative Dawson?s sign Psyche: normal mood and affect. Objective Labs Result Diagrams: 03/15/21 04:46 03/15/21 04:46 Labs: Laboratory Results - last 24 hr 03/14/21 03/14/21 03/14/21 19:10 19:10 19:55 WBC 8.4 RBC 4.49 L Hgb 14.1 Hct 41.1 MCV 91.5 MCH 31.3 MCHC 34.2 RDW 14.6 Plt Count 342 Neut % (Auto) 61.2 Lymph % (Auto) 29.2 [place] % (Auto) 8.0 Eos % (Auto) 0.5 L Baso % (Auto) 1.1 Neut # (Auto) 5100 Lymph # (Auto) 2400 [place] # (Auto) 700 Eos # (Auto) 0 Baso # (Auto) 100 Sodium 138 Potassium 3.5 Chloride 98 Carbon Dioxide 24 BUN 9 Creatinine 0.59 L Estimated GFR > 60.0 BUN/Creatinine Ratio 15.3 Glucose 133 H Calcium 9.6 Magnesium Total Bilirubin 0.4 Conjugated Bilirubin Unconjugated Bilirubin AST 43 ALT 33 Alkaline Phosphatase 83 Total Protein 8.2 Albumin 4.8 Globulin 3.4 Albumin/Globulin Ratio 1.4 Nasal Screen MRSA (PCR) Ethyl Alcohol 171 H SARS-CoV-2 (PCR) Positive H 03/15/21 03/15/21 03/15/21 04:46 04:46 04:46 WBC 5.9 RBC 4.06 L Hgb 12.5 L Hct 37.1 L MCV 91.3 MCH 30.9 MCHC 33.8 RDW 14.4 Plt Count 284 Neut % (Auto) 42.0 L Lymph % (Auto) 46.2 H [place] % (Auto) 8.2 Eos % (Auto) 2.9 Baso % (Auto) 0.7 Neut # (Auto) 2500 Lymph # (Auto) 2700 [place] # (Auto) 500 Eos # (Auto) 200 Baso # (Auto) 0 Sodium 137 Potassium 3.6 Chloride 101 Carbon Dioxide 27 BUN 9 Creatinine 0.58 L Estimated GFR > 60.0 BUN/Creatinine Ratio 15.5 Glucose 89 Calcium 9.0 Magnesium 1.9 Total Bilirubin 0.5 Conjugated Bilirubin 0.0 Unconjugated Bilirubin 0.5 AST 39 ALT 28 Alkaline Phosphatase 54 Total Protein 6.6 Albumin 3.8 Globulin 2.8 Albumin/Globulin Ratio 1.4 Nasal Screen MRSA (PCR) Ethyl Alcohol SARS-CoV-2 (PCR) 03/15/21 10:22 WBC RBC Hgb Hct MCV MCH MCHC RDW Plt Count Neut % (Auto) Lymph % (Auto) [place] % (Auto) Eos % (Auto) Baso % (Auto) Neut # (Auto) Lymph # (Auto) [place] # (Auto) Eos # (Auto) Baso # (Auto) Sodium Potassium Chloride Carbon Dioxide BUN Creatinine Estimated GFR BUN/Creatinine Ratio Glucose Calcium Magnesium Total Bilirubin Conjugated Bilirubin Unconjugated Bilirubin AST ALT Alkaline Phosphatase Total Protein Albumin Globulin Albumin/Globulin Ratio Nasal Screen MRSA (PCR) Negative for mrsa Ethyl Alcohol SARS-CoV-2 (PCR) [facility] Medical History Alcohol abuse COVID-19 Hypertension Surgical History No history of previous surgery Family History Other First degree relatives alive and well Social History household members: none Smoking Status: Current every day smoker Discharge Plan Discharge Plan Patient Disposition: Home Provider Discharge Comment: You were admitted to the hospital with mild alcohol withdrawal and you also had a positive covid test. Please stay isolated for at least 7 days if you remain asymptomatic, up to 14 if you develop symptoms. Discharge orders & Medications Prescriptions: Continued losartan 50 mg tablet 50 mg PO DAILY Qty: 14 RF: 0 Follow up/Referrals: Herb Morales MD [Primary Care Provider] - Visit Report/Discharge Packet Instructions: DI for Alcohol Use Disorder, DI for Drug or Alcohol Withdrawal, Chlordiazepoxide, Coronavirus Disease 2019 Discharge Data Primary Care Provider: Herb Morales Attending Provider: Ritu Abbsai VTE Deep Vein Thrombosis/Pulmonary Embolism Present on Admission: No
== END 2021-03-15 17:25 | disposition home or self-care (01) ==
LOC: ED 19:20 → ICU 03-15 07:05 → AC 03-15 15:54 → ICU 03-15 15:54
PROVIDERS: Admitting Provider Nurse Practitioner Family; Emergency Provider Emergency Medicine; PCP Family Medicine; Referring Provider Emergency Medicine; Visit Provider Nurse Practitioner Family
DX: F10.239 Alcohol dependence with withdrawal, unspecified (principal); Y90.6 Blood alcohol level of 120-199 mg/100 ml; U07.1 COVID-19; F17.210 Nicotine dependence, cigarettes, uncomplicated; I10 Essential (primary) hypertension
CPT/HCPCS: 36415; 80048; 80053; 80076; 80320; 83735; 85025; 87635; 87797; 93005; 93010; 94762; 96361; 96372; 96374; 96375; 96376; 99284; C9803; G0378; J1650; J2060; J2405

== ENCOUNTER → 2021-03-21 12:26 | Outpatient (CLI) | payer OTHER, MEDICAID, SELFPAY ==
[2021-03-14 22:48] VITALS: BMI 23.0
[2021-03-21 21:42] LABS: COVID19 - ORCAS (NP or Nasal) Negative (Negative)
== END ==
PROVIDERS: PCP Family Medicine; Visit Provider Family Medicine
DX: Z20.822 Contact with and (suspected) exposure to COVID-19 (principal)
CPT/HCPCS: U0003

== ENCOUNTER → 2021-03-23 11:31 | Outpatient (CLI) | payer OTHER, MEDICAID, SELFPAY ==
[2021-03-14 22:48] VITALS: BMI 23.0
[2021-03-23 20:42] LABS: COVID19 - ORCAS (NP or Nasal) POSITIVE (Negative)
== END ==
PROVIDERS: PCP Family Medicine; Visit Provider Family Medicine
DX: U07.1 COVID-19 (principal)
CPT/HCPCS: U0003

== ENCOUNTER 2021-06-10 23:04 | Emergency (ER) | payer OTHER, MEDICAID, SELFPAY ==
[2021-03-14 22:48] VITALS: BMI 23.0
[2021-06-10 23:05] VITALS: BP 131/73; PULSE 65; RESP 14; TEMP 36.6; O2SAT 96; BMI 23.7
[2021-06-11] VITALS (11 sets, daily range): BP systolic 94–122; BP diastolic 51–80; PULSE 70–104; RESP 11–15; O2SAT 92–97
--- NOTE | 2021-06-11 02:00 | ED_ITS ---
HPI - Alcohol General Chief Complaint: Toxicology Problem Stated Complaint: ETOH W/D Time Seen by Provider: 06/11/21 01:48 Source: patient Mode of arrival: Ambulatory Limitations: no limitations History of Present Illness HPI narrative: The patient is a 31-year-old male with history of alcohol abuse and hypertension. He has a history of delirium tremens he has quite extensive ALFONSO/last visit was May [facility] at [facility] it was noted he had hypokalemia according to that record. Patient says he is dehydrated. He has vomited 4 times today he is no longer nauseated he has no abdominal pain. He denies any diarrhea or fever. That he is going through alcohol withdrawal. He drink alcohol just prior to his arrival. He is not having any shaking or hallucinations at this time. Related Data Home Medications Medication Instructions Recorded Confirmed chlordiazepoxide HCl 10 mg capsule 10 mg PO .qd cap 03/29/21 03/29/21 clonidine HCl 0.1 mg tablet 0.1 mg PO BID 03/29/21 03/29/21 sertraline 25 mg tablet 50 mg PO DAILY tab 03/29/21 03/29/21 Previous Rx's Medication Instructions Recorded losartan 50 mg tablet 50 mg PO DAILY #14 tab 11/24/20 Allergies Allergy/AdvReac Type Severity Reaction Status Date / Time cephalexin Allergy Verified 06/10/21 23:05 marijuana Allergy Verified 06/10/21 23:05 ssri Allergy Uncoded 03/14/21 19:07 Review of Systems Review of Systems Narrative: GENERAL: Denies chills, fatigue, malaise, fever, sweats, travel HEENT: Denies sinus pain, ear pain, sore throat, difficulty swallowing, neck pain RESPIRATORY: Denies dyspnea, cough, wheezing, hemoptysis, sputum. CARDIOVASCULAR: Denies chest pain, palpitations, orthopnea, edema GASTROINTESTINAL: See HPI : Denies dysuria, frequency, incontinence, hematuria, urinary retention, flank pain. MUSCULOSKELETAL: Denies weakness, joint pain, or bony pain SKIN: No rash, no erythema, no pruritus NEUROLOGIC: Denies weakness, dizziness, headache, numbness, change in speech, confusion PSYCHIATRIC: No concerning psychosocial issues. 12 point review of systems is negative except for those stated above and HPI Patient History Medical History Alcohol abuse COVID-19 Hypertension Surgical History No history of previous surgery Family History Other First degree relatives alive and well Social History household members: none Smoking Status: Current every day smoker Smoking Status: Current every day smoker alcohol intake frequency: 3 or more drinks per day Alcohol type: beer Substance Use Type: does not use Exam Initial Vital Signs Initial Vital Signs: Vital Signs Temperature 97.9 F 06/10/21 23:05 Pulse Rate 65 06/10/21 23:05 Respiratory Rate 14 06/10/21 23:05 Blood Pressure 131/73 06/10/21 23:05 Pulse Oximetry 96 06/10/21 23:05 GENERAL: Alert well-appearing 31-year-old male HEENT: Head atraumatic,EOMI, pupils reactive, face symmetric, moist mucous membranes CARDIOVASCULAR: Regular rate and rhythm without murmurs, rubs or gallops. RESPIRATORY: Breath sounds equal bilaterally, no wheezes rales or rhonchi. ABDOMEN: Soft, nontender. Normoactive bowel sounds all 4 quadrants. No guarding or rebound. EXTREMITIES: Normal range of motion, no clubbing or edema. Neurovascularly intact NEUROLOGICAL: Alert and oriented x4.Normal gait and speech. SKIN: Warm, dry, no laceration, no petechiae, no rashes or lesions. Course Orders Ordered: ED Orders 06/11/21 02:20 Complete Blood Count AUTO DIFF Stat Comprehensive Metabolic Panel Stat Discontinued Medications Sodium Chloride (Normal Saline 0.9%) 1,000 mls @ 1,000 mls/hr IV BOLUS ONE Stop: 06/11/21 03:21 Last Infusion: 06/11/21 03:26 Dose: 0 mls/hr Documented by: Admin: 06/11/21 02:24 Dose: 1,000 mls/hr Documented by: DIANA Vital Signs Vital signs: Vital Signs - 8 hr 06/10/21 23:05 06/11/21 01:06 06/11/21 01:30 Temperature 97.9 F Pulse Rate 65 82 Respiratory Rate 14 Blood Pressure 131/73 100/51 L Pulse Oximetry 96 94 06/11/21 02:00 06/11/21 02:30 06/11/21 03:00 Temperature Pulse Rate 98 H 101 H 80 Respiratory Rate 15 12 Blood Pressure 97/59 L 122/80 101/58 L Pulse Oximetry 93 97 94 06/11/21 03:30 06/11/21 04:00 06/11/21 04:30 Temperature Pulse Rate 71 76 81 Respiratory Rate 13 12 12 Blood Pressure 94/55 L 99/58 L 103/63 Pulse Oximetry 94 95 96 MDM - Alcohol Lab Data Result diagrams: 06/11/21 02:20 06/11/21 02:20 Labs: Lab Results 06/11/21 06/11/21 Range/Units 02:20 02:20 WBC 3.6 L (4.5-11.0) X10^3/uL RBC 4.01 L (4.5-5.9) X10^6/uL Hgb 13.2 L (13.5-17.5) g/dL Hct 38.8 L (41-53) % MCV 96.7 (80-100) fL MCH 32.9 (26-34) PG MCHC 34.0 (30-36) % RDW 14.2 (11.6-14.8) % Plt Count 88 L (150-400) X10^3/uL Neut % (Auto) 48.0 L (50-75) % Lymph % (Auto) 42.9 H (25-40) % [place] % (Auto) 5.1 (3-14) % Eos % (Auto) 1.6 L (2-4) % Baso % (Auto) 2.4 H (0-2) % Neut # (Auto) 1700 (1673-3272) /uL Lymph # (Auto) 1500 (1742-7562) /uL [place] # (Auto) 200 (0-900) /uL Eos # (Auto) 100 (0-450) /uL Baso # (Auto) 100 (0-100) /uL Sodium 142 (137-145) mmol/L Potassium 3.4 (3.4-5.1) mmol/L Chloride 101 (98-107) mmol/L Carbon Dioxide 27 (22-32) mmol/L BUN 5 L (9-20) mg/dL Creatinine 0.49 L (0.66-1.25) mg/dL Estimated GFR > 60.0 (>60) mL/min BUN/Creatinine Ratio 10.2 (6-22) Glucose 90 (70-100) mg/dL Calcium 8.7 (8.4-10.2) mg/dL Total Bilirubin 0.5 (0.2-1.3) mg/dL AST 418 H (17-59) IU/L ALT 180 H (<50) IU/L Alkaline Phosphatase 87 (38-126) U/L Total Protein 7.4 (6.3-8.2) g/dL Albumin 4.3 (3.5-5.0) g/dL Globulin 3.1 (1.7-4.1) g/dL Albumin/Globulin Ratio 1.4 (1.0-2.8) MDM Narrative Medical decision making narrative: Patient's basic blood work is overall gene ssuring. He is shaking or signs of alcohol withdrawal. taxi to detox center Discharge Plan Departure Patient Disposition: Home Clinical Impression: Alcoholism Instructions: DI for Alcohol Use Disorder Activity Restrictions/Additional Instructions: *You have been diagnosed with alcoholism *What to do: At this time you are not going through withdrawals and he will not be getting a prescription for benzodiazepine. It is recommended that if you choose to stop drinking that you do it under supervision in a detox center. [phone]---Angelina syed, you may call them at 10:00 a.m. to see if they have any bed availability and check yourself *Continue to take medications as directed *Follow up with your primary care provider in 2-3 days *Return to ER if you should have any new, worsening or concerning symptoms Prescriptions: No Action losartan 50 mg tablet 50 mg PO DAILY Qty: 14 RF: 0 sertraline 25 mg tablet 50 mg PO DAILY RF: 0 chlordiazepoxide HCl 10 mg capsule 10 mg PO .qd RF: 0 clonidine HCl 0.1 mg tablet 0.1 mg PO BID RF: 0 Referrals: Herb Morales MD [Primary Care Provider] -
[2021-06-11] MEDS: SODIUM CHLORIDE 0.9% 1,000 ML 1000 ML IV (02:24)
[2021-06-11 02:34] LABS: Add Manual Diff / Slide Review NO; Basophils Absolute Auto 100 /uL (0-100); Basophils Percent Auto 2.4 % (0-2); Eosinophils Absolute Auto 100 /uL (0-450); Eosinophils Percent Auto 1.6 % (2-4); Hematocrit 38.8 % (41-53); Hemoglobin 13.2 g/dL (13.5-17.5); Lymphocytes Absolute Auto 1500 /uL (1100-4500); Lymphocytes Percent Auto 42.9 % (25-40); Mean Corpuscular Hemoglobin 32.9 PG (26-34); Mean Corpuscular Volume 96.7 fL (80-100); Monocytes Absolute Auto 200 /uL (0-900); Monocytes Percent Auto 5.1 % (3-14); Neutrophils Absolute Auto 1700 /uL (1500-7000); Platelet Count 88 X10^3/uL (150-400); Red Blood Cell Count 4.01 X10^6/uL (4.5-5.9); Red Cell Distribution Width 14.2 % (11.6-14.8); White Blood Cell Count 3.6 X10^3/uL (4.5-11.0)
[2021-06-11 02:41] LABS: Alanine Aminotransferase 180 IU/L (<50); Albumin 4.3 g/dL (3.5-5.0); Albumin Globulin Ratio 1.4 (1.0-2.8); Alkaline Phosphatase 87 U/L (38-126); Aspartate Aminotransferase 418 IU/L (17-59); BUN Creatinine Ratio 10.2 (6-22); Bilirubin Total 0.5 mg/dL (0.2-1.3); Blood Urea Nitrogen 5 mg/dL (9-20); Calcium 8.7 mg/dL (8.4-10.2); Carbon Dioxide 27 mmol/L (22-32); Chloride 101 mmol/L (98-107); Estimated Glomerular Filt Rate > 60.0 mL/min (>60); Globulin 3.1 g/dL (1.7-4.1); Glucose 90 mg/dL (70-100); HEMOLYSIS < 15 (0-50); Potassium 3.4 mmol/L (3.4-5.1); Sodium 142 mmol/L (137-145); Total Protein 7.4 g/dL (6.3-8.2)
--- NOTE | 2021-06-11 04:49 | PC.NURSE ---
Patient stable; remaining in ER until taxi and ferries begin service.
== END 2021-06-11 06:55 | disposition home or self-care (01) ==
PROVIDERS: Emergency Provider Emergency Medicine; PCP Family Medicine
DX: F10.20 Alcohol dependence, uncomplicated (principal)
CPT/HCPCS: 36415; 80053; 85025; 96360; 99284

== ENCOUNTER 2021-06-11 07:01 | Emergency (ER) | payer OTHER, MEDICAID, SELFPAY ==
[2021-03-14 22:48] VITALS: BMI 23.0
[2021-06-11 08:02] VITALS: BP 135/83; PULSE 101; RESP 16; TEMP 36.7; O2SAT 94; BMI 23.7
--- NOTE | 2021-06-11 08:06 | ED_ITS ---
HPI - General Adult General Chief complaint: Toxicology Problem Stated complaint: alcohol withdrawal, shaking, vomiting Time Seen by Provider: 06/11/21 08:03 History of Present Illness HPI narrative: Patient is a 31-year-old male. Has a known history of alcohol use disorder. Was just seen in this emergency department this morning for evaluation of alcohol withdrawals and wanting detox. Patient was medically cleared and was discharged. He was given a taxi voucher in order to make it to the detox center although was going to be several hours before he could go there. He states that after he was discharged he started to ?go into DTs ?. He checks back into the emergency department for shaking and vomiting. Related Data Home Medications Medication Instructions Recorded Confirmed chlordiazepoxide HCl 10 mg capsule 10 mg PO .qd cap 03/29/21 03/29/21 clonidine HCl 0.1 mg tablet 0.1 mg PO BID 03/29/21 03/29/21 sertraline 25 mg tablet 50 mg PO DAILY tab 03/29/21 03/29/21 Previous Rx's Medication Instructions Recorded losartan 50 mg tablet 50 mg PO DAILY #14 tab 11/24/20 Allergies Allergy/AdvReac Type Severity Reaction Status Date / Time cephalexin Allergy Verified 06/10/21 23:05 marijuana Allergy Verified 06/10/21 23:05 ssri Allergy Uncoded 03/14/21 19:07 Review of Systems Constitutional Constitutional: Reports system reviewed and no additional complaints, except as documented Gastrointestinal Gastrointestinal: Reports nausea Integumentary/Breasts Skin/Breast: Reports system reviewed and no additional complaints, except as documented Neurologic Neurologic: Reports system reviewed and no additional complaints, except as documented Hematologic/Lymphatic On Anticoagulants: No Patient History Medical History Alcohol abuse COVID-19 Hypertension Surgical History No history of previous surgery Family History Other First degree relatives alive and well Social History household members: none Smoking Status: Current every day smoker Smoking Status: Current every day smoker alcohol intake frequency: 3 or more drinks per day Alcohol type: beer Substance Use Type: does not use Exam Initial Vital Signs Initial Vital Signs: Vital Signs Temperature 98.1 F 06/11/21 08:02 Pulse Rate 101 H 06/11/21 08:02 Respiratory Rate 16 06/11/21 08:02 Blood Pressure 135/83 06/11/21 08:02 Pulse Oximetry 94 06/11/21 08:02 Const General: cooperative and healthy appearing HENMT Head: normal to inspection and normocephalic Eyes General: appearance normal, both eyes and all related structures Resp Effort & Inspection: normal respiratory effort Cardio Rate: tachycardic Rhythm: regular rhythm Skin General: no rashes or lesions noted Neuro General: patient alert, patient awake, patient oriented x3 and moves all extremities Speech: speech normal Motor: No tremor Extrem General: normal to inspection and capillary refill normal Psych Appearance: grossly normal and well kempt Scores GCS Elvira coma scale eye opening: Spontaneous [place] coma scale verbal response: Orientated [place]vira coma scale motor response: Obey commands [place] coma scale total score: 15 Course Orders Ordered: ED Orders 06/11/21 09:20 COVID19 -Nasal swab/Pre-Proc Stat Discontinued Medications Ondansetron HCl (Ondansetron 4 Mg Odt) 4 mg SL NOW ONE Stop: 06/11/21 08:08 Last Admin: 06/11/21 08:22 Dose: 4 mg Documented by: EDMUND Phenobarbital (Phenobarbital 65 Mg/Ml Vial) 260 mg IM NOW ONE Stop: 06/11/21 08:08 Last Admin: 06/11/21 08:22 Dose: 260 mg Documented by: EDMUND Vital Signs Vital signs: Vital Signs - 8 hr 06/11/21 08:02 06/11/21 09:07 Temperature 98.1 F Pulse Rate 101 H 89 Respiratory Rate 16 14 Blood Pressure 135/83 121/75 Pulse Oximetry 94 95 Medical Decision Making MDM Narrative Medical decision making narrative: Patient medically cleared during his last visit has a CIWA score of 2. Was given phenobarbital also Zofran. Will discharge him so that he can make it to detox facility. Discharge Plan Departure Patient Disposition: Home Clinical Impression: Alcohol use disorder Instructions: DI for Alcohol Use Disorder Activity Restrictions/Additional Instructions: The medicine that you were given here in the emergency department should last for the next several hours/days. Per your last visit here, I recommend that you had to alcohol detox for continued treatment. Prescriptions: No Action losartan 50 mg tablet 50 mg PO DAILY Qty: 14 RF: 0 sertraline 25 mg tablet 50 mg PO DAILY RF: 0 chlordiazepoxide HCl 10 mg capsule 10 mg PO .qd RF: 0 clonidine HCl 0.1 mg tablet 0.1 mg PO BID RF: 0 Referrals: Herb Morales MD [Primary Care Provider] -
[2021-06-11] MEDS: ONDANSETRON 4 MG ODT SL (08:22)
[2021-06-11] MEDS: PHENobarbital 65 MG/ML VIAL 260 MG IM (08:22)
[2021-06-11 09:07] VITALS: BP 121/75; PULSE 89; RESP 14; O2SAT 95
[2021-06-11 09:43] LABS: COVID19 -Nasal RAPID Negative (Negative)
== END 2021-06-11 09:26 | disposition home or self-care (01) ==
PROVIDERS: Emergency Provider Emergency Medicine; PCP Family Medicine
DX: F10.10 Alcohol abuse, uncomplicated (principal); Z20.822 Contact with and (suspected) exposure to COVID-19
CPT/HCPCS: 87635; 96372; 99283; C9803; J2560

== ENCOUNTER → 2021-07-05 11:16 | Outpatient (CLI) | payer OTHER, MEDICAID, SELFPAY ==
[2021-03-14 22:48] VITALS: BMI 23.0
[2021-07-05 19:27] LABS: Add Manual Diff / Slide Review NO; Basophils Absolute Auto 0 /uL (0-100); Basophils Percent Auto 1.1 % (0-2); Eosinophils Absolute Auto 0 /uL (0-450); Hematocrit 41.2 % (41-53); Hemoglobin 13.8 g/dL (13.5-17.5); Lymphocytes Absolute Auto 700 /uL (1100-4500); Lymphocytes Percent Auto 18.4 % (25-40); Mean Corpuscular HGB Conc 33.4 % (30-36); Mean Corpuscular Hemoglobin 33.2 PG (26-34); Mean Corpuscular Volume 99.2 fL (80-100); Monocytes Absolute Auto 300 /uL (0-900); Neutrophils Absolute Auto 2600 /uL (1500-7000); Neutrophils Percent Auto 72.5 % (50-75); Platelet Count 128 X10^3/uL (150-400); Red Blood Cell Count 4.15 X10^6/uL (4.5-5.9); Red Cell Distribution Width 13.5 % (11.6-14.8); White Blood Cell Count 3.6 X10^3/uL (4.5-11.0)
[2021-07-05 19:29] LABS: Alanine Aminotransferase 153 IU/L (<50); Albumin 5.2 g/dL (3.5-5.0); Albumin Globulin Ratio 1.6 (1.0-2.8); Alkaline Phosphatase 124 U/L (38-126); Aspartate Aminotransferase 350 IU/L (17-59); BUN Creatinine Ratio 19.6 (6-22); Bilirubin Total 0.8 mg/dL (0.2-1.3); Blood Urea Nitrogen 11 mg/dL (9-20); Calcium 8.9 mg/dL (8.4-10.2); Carbon Dioxide 17 mmol/L (22-32); Chloride 98 mmol/L (98-107); Estimated Glomerular Filt Rate > 60.0 mL/min (>60); Globulin 3.2 g/dL (1.7-4.1); Glucose 100 mg/dL (70-100); HEMOLYSIS < 15 (0-50); Potassium 4.1 mmol/L (3.4-5.1); Sodium 144 mmol/L (137-145); Total Protein 8.4 g/dL (6.3-8.2)
== END ==
PROVIDERS: PCP Family Medicine; Visit Provider Family Medicine
DX: I10 Essential (primary) hypertension (principal); F10.21 Alcohol dependence, in remission; R74.8 Abnormal levels of other serum enzymes
CPT/HCPCS: 80053; 80305; 85025

== ENCOUNTER 2021-07-09 00:27 | Inpatient (IN) | payer OTHER, MEDICAID, SELFPAY ==
[2021-03-14 22:48] VITALS: BMI 23.0
[2021-07-09] VITALS (32 sets, daily range): BP systolic 106–153; BP diastolic 62–104; PULSE 66–98; RESP 6–20; TEMP 36.4–37.3; O2SAT 95–100; BMI 23.7
[2021-07-09 01:22] LABS: Add Manual Diff / Slide Review NO; Basophils Absolute Auto 0 /uL (0-100); Basophils Percent Auto 0.9 % (0-2); Eosinophils Absolute Auto 0 /uL (0-450); Eosinophils Percent Auto 0.1 % (2-4); Hematocrit 40.7 % (41-53); Hemoglobin 13.9 g/dL (13.5-17.5); Lymphocytes Absolute Auto 1100 /uL (1100-4500); Lymphocytes Percent Auto 24.1 % (25-40); Mean Corpuscular HGB Conc 34.1 % (30-36); Mean Corpuscular Hemoglobin 32.9 PG (26-34); Mean Corpuscular Volume 96.5 fL (80-100); Monocytes Absolute Auto 400 /uL (0-900); Neutrophils Absolute Auto 3100 /uL (1500-7000); Neutrophils Percent Auto 66.9 % (50-75); Platelet Count 61 X10^3/uL (150-400); Red Blood Cell Count 4.21 X10^6/uL (4.5-5.9); Red Cell Distribution Width 13.2 % (11.6-14.8); White Blood Cell Count 4.7 X10^3/uL (4.5-11.0)
[2021-07-09 01:27] LABS: Magnesium 1.8 mg/dL (1.6-2.3)
[2021-07-09] MEDS: SODIUM CHLORIDE 0.9% 1,000 ML 1000 ML IV (01:38)
--- NOTE | 2021-07-09 01:39 | DI.CT.S_ITS ---
PROCEDURE: CT HEAD/BRAIN WO CON INDICATIONS: etoh seizure TECHNIQUE: Noncontrast 4.5 mm thick angled axial sections acquired from the foramen magnum to the vertex, with coronal and sagittal reformats. For radiation dose reduction, the following was used: automated exposure control, adjustment of mA and/or kV according to patient size. COMPARISON: [facility], CT, CT HEAD/BRAIN WO CON, 03/21/2020, 23:19. FINDINGS: Image quality: Excellent. CSF spaces: Basal cisterns are patent. No extra-axial fluid collections. Ventricles are normal in size and shape. Brain: No midline shift. No intracranial masses or hemorrhage. Hanna-white matter interface is normal. Skull and face: Calvarium and visualized facial bones are intact, without suspicious lesions. Sinuses: Visualized sinuses and mastoids are clear. IMPRESSION: 1. No acute intracranial process. The above findings are concordant with preliminary report. Dictated by: Sarah Bond M.D. on 07/09/2021 at 8:18 Approved by: Sarah Bond M.D. on 07/09/2021 at 8:19
[2021-07-09 01:45] LABS: Prolactin 17.5 ng/mL (3.7-17.9)
--- NOTE | 2021-07-09 01:48 | ED.SEIZURE ---
HPI - Seizure General Chief Complaint: Seizure Stated Complaint: had seizure earlier/thinks he may have another Time Seen by Provider: 07/09/21 01:39 Source: patient Mode of arrival: Ambulatory Limitations: no limitations History of Present Illness HPI Narrative: Patient is a 31-year-old male with history of all alcohol abuse presenting today with 2 seizures. He apparently was in a detox facility and [place] 10 days ago when he had a seizure and he was discharged from the detox facility. At time he fell and hit his head requiring sutures in his lip. He was seen and evaluated by his PCP on July 05 for suture removal. Patient says that he started drinking pretty quickly after he was released from detox. He would like to be sober but is afraid that they will have another seizure. He had 2 witnessed seizures today by his dad. Shaking all over. He is not sure that he bit his tongue. He has 2 black eyes not sure what those are from either. He overall is feeling shaky is concerned that he may have another seizure Related Data Previous Rx's Medication Instructions Recorded buspirone 5 mg tablet 5 mg PO BID #60 tab 07/05/21 metoprolol succinate 25 mg 25 mg PO DAILY #30 tab 07/05/21 tablet,extended release 24 hr Allergies Allergy/AdvReac Type Severity Reaction Status Date / Time cephalexin Allergy Verified 07/09/21 00:45 marijuana Allergy Verified 07/09/21 00:45 ssri Allergy Uncoded 07/09/21 00:45 Review of Systems Review of Systems Narrative: GENERAL: Denies chills, fatigue, malaise, fever, sweats, travel HEENT: Denies sinus pain, ear pain, sore throat, difficulty swallowing, neck pain RESPIRATORY: Denies dyspnea, cough, wheezing, hemoptysis, sputum. CARDIOVASCULAR: Denies chest pain, palpitations, orthopnea, edema GASTROINTESTINAL: Denies nausea, vomiting, abdominal pain, diarrhea, constipation, melena. : Denies dysuria, frequency, incontinence, hematuria, urinary retention, flank pain. MUSCULOSKELETAL: Denies weakness, joint pain, or bony pain SKIN: No rash, no erythema, no pruritus NEUROLOGIC: See HPI PSYCHIATRIC: No concerning psychosocial issues. 12 point review of systems is negative except for those stated above and HPI Patient History Medical History Alcohol abuse COVID-19 Hypertension Lip laceration Surgical History No history of previous surgery Family History (Reviewed 07/09/21 @ 06:33 by Shanae Garcia [employer] [facility]) Other First degree relatives alive and well Social History household members: none Smoking Status: Current every day smoker Smoking Status: Current every day smoker alcohol intake frequency: 3 or more drinks per day Alcohol type: beer Substance Use Type: does not use Exam Initial Vital Signs Initial Vital Signs: Vital Signs Temperature 97.5 F L 07/09/21 00:45 Pulse Rate 79 07/09/21 00:45 Respiratory Rate 20 07/09/21 00:45 Blood Pressure 135/97 H 07/09/21 00:45 Pulse Oximetry 99 07/09/21 00:45 GENERAL: Well-appearing, well-nourished and in no acute distress. HEENT: Head atraumatic,EOMI, pupils reactive, bilateral periorbital contusions no significant swelling face symmetric, no evidence of tongue injury CARDIOVASCULAR: Regular rate and rhythm without murmurs, rubs or gallops. RESPIRATORY: Breath sounds equal bilaterally, no wheezes rales or rhonchi. ABDOMEN: Soft, nontender no right upper quadrant pain guarding or rebound EXTREMITIES: Normal range of motion, no clubbing or edema. Neurovascularly intact NEUROLOGICAL: Alert and oriented x4.Normal gait and speech. Respiratory Therapy Assistant strength equal bilaterally mild tremor SKIN: Warm, dry, no laceration, no petechiae, no rashes or lesions. Course Orders Ordered: ED Orders 07/09/21 00:50 CMP [Comprehensive Metabolic Panel] Stat Complete Blood Count AUTO DIFF Stat Ethanol (ETOH) Stat Magnesium Stat Phosphorous Urgent Prolactin Stat 07/09/21 01:12 Urinalysis Screen (Dip Only) Stat Urine Drug Screen, Rapid Stat EKG-12 Lead Stat 07/09/21 01:39 CT head/brain wo con Stat 07/09/21 03:20 COVID19 - ADMIT (INTELLIGENCE CHIEF swab/PCR) Stat 07/09/21 03:59 US abdomen limited Stat 07/09/21 04:09 Consult to Dietitian, Adult Routine 07/09/21 04:11 Education, smoking cessation ONGOING 07/09/21 05:00 Basic Metabolic Panel DAILY Partial Thromboplastin Time Routine Prothrombin Time INR Routine 07/10/21 05:00 Basic Metabolic Panel DAILY Magnesium DAILY Acetaminophen (Acetaminophen 325 Mg Tablet) 650 mg PO Q6HR PRN PRN Reason: Fever/Mild Pain (1-3) Folic Acid (Folic Acid 1 Mg Tablet) 1 mg PO DAILY [facility] Heparin Sodium (Porcine) (Heparin 5,000 Unit/Ml Vial) 5,000 unit SUBCUT BID [facility] Sodium Chloride (Normal Saline 0.9%) 1,000 mls @ 100 mls/hr IV CONT APRIL Last Admin: 07/09/21 06:01 Dose: 100 mls/hr Documented by: BRIANNA Multivitamins (Multivitamin 1 Tablet) 1 tab PO DAILY [facility] Naloxone HCl (Naloxone 0.4 Mg/Ml Vial) 0.2 mg IV Q2MIN PRN PRN Reason: Opiate Reversal Ondansetron HCl (Ondansetron 4 Mg/2 Ml Inj) 4 mg IV Q6HR PRN PRN Reason: Nausea And Vomiting Last Admin: 07/09/21 05:58 Dose: 4 mg Documented by: Admin: 07/09/21 05:25 Dose: 4 mg Documented by: HANNAH Thiamine HCl (Thiamine 100 Mg Tablet) 100 mg PO DAILY APRIL Stop: 07/12/21 09:01 Discontinued Medications Sodium Chloride (Normal Saline 0.9%) 1,000 mls @ 1,000 mls/hr IV BOLUS ONE Stop: 07/09/21 02:11 Last Infusion: 07/09/21 02:15 Dose: 0 mls/hr Documented by: Admin: 07/09/21 01:38 Dose: 1,000 mls/hr Documented by: BHUMIKA Phenobarbital (Phenobarbital 65 Mg/Ml Vial) 260 mg IV NOW ONE Stop: 07/09/21 01:49 Last Admin: 07/09/21 02:01 Dose: 260 mg Documented by: BHUMIKA Vital Signs Vital signs: Vital Signs - 8 hr 07/09/21 00:45 07/09/21 01:00 07/09/21 01:30 Temperature 97.5 F L Pulse Rate 79 72 71 Respiratory Rate 20 11 L 11 L Blood Pressure 135/97 H 125/83 129/83 Pulse Oximetry 99 97 99 07/09/21 02:00 07/09/21 02:03 07/09/21 02:08 Temperature Pulse Rate 98 H 90 81 Respiratory Rate 17 6 L 20 Blood Pressure 153/99 H 128/89 Pulse Oximetry 100 95 98 07/09/21 02:30 07/09/21 03:00 07/09/21 03:30 Temperature Pulse Rate 69 68 79 Respiratory Rate 12 14 11 L Blood Pressure 120/78 106/62 120/82 Pulse Oximetry 97 95 97 07/09/21 04:00 07/09/21 04:30 Temperature Pulse Rate 66 69 Respiratory Rate 8 L 12 Blood Pressure 122/77 118/79 Pulse Oximetry 98 97 MDM - Seizure Lab Data Result diagrams: 07/09/21 00:50 07/09/21 00:50 Labs: Lab Results 07/09/21 07/09/21 07/09/21 Range/Units 00:50 00:50 00:50 WBC 4.7 (4.5-11.0) X10^3/uL RBC 4.21 L (4.5-5.9) X10^6/uL Hgb 13.9 (13.5-17.5) g/dL Hct 40.7 L (41-53) % MCV 96.5 (80-100) fL MCH 32.9 (26-34) PG MCHC 34.1 (30-36) % RDW 13.2 (11.6-14.8) % Plt Count 61 L (150-400) X10^3/uL Neut % (Auto) 66.9 (50-75) % Lymph % (Auto) 24.1 L (25-40) % [place] % (Auto) 8.0 (3-14) % Eos % (Auto) 0.1 L (2-4) % Baso % (Auto) 0.9 (0-2) % Neut # (Auto) 3100 (4288-8958) /uL Lymph # (Auto) 1100 (2882-8958) /uL [place] # (Auto) 400 (0-900) /uL Eos # (Auto) 0 (0-450) /uL Baso # (Auto) 0 (0-100) /uL Sodium 141 (137-145) mmol/L Potassium 3.8 (3.4-5.1) mmol/L Chloride 93 L (98-107) mmol/L Carbon Dioxide 22 (22-32) mmol/L BUN 20 (9-20) mg/dL Creatinine 0.68 (0.66-1.25) mg/dL Estimated GFR > 60.0 (>60) mL/min BUN/Creatinine Ratio 29.4 H (6-22) Glucose 87 (70-100) mg/dL Calcium 9.4 (8.4-10.2) mg/dL Magnesium 1.8 (1.6-2.3) mg/dL Total Bilirubin 1.6 H (0.2-1.3) mg/dL AST 592 H (17-59) IU/L ALT 213 H (<50) IU/L Alkaline Phosphatase 122 (38-126) U/L Total Protein 8.9 H (6.3-8.2) g/dL Albumin 5.2 H (3.5-5.0) g/dL Globulin 3.7 (1.7-4.1) g/dL Albumin/Globulin Ratio 1.4 (1.0-2.8) Prolactin 17.5 (3.7-17.9) ng/mL Ethyl Alcohol ( - 10) mg/dL SARS-CoV-2 (PCR) (Negative) 07/09/21 07/09/21 Range/Units 00:50 03:20 WBC (4.5-11.0) X10^3/uL RBC (4.5-5.9) X10^6/uL Hgb (13.5-17.5) g/dL Hct (41-53) % MCV (80-100) fL MCH (26-34) PG MCHC (30-36) % RDW (11.6-14.8) % Plt Count (150-400) X10^3/uL Neut % (Auto) (50-75) % Lymph % (Auto) (25-40) % [place] % (Auto) (3-14) % Eos % (Auto) (2-4) % Baso % (Auto) (0-2) % Neut # (Auto) (4959-6287) /uL Lymph # (Auto) (7321-1790) /uL [place] # (Auto) (0-900) /uL Eos # (Auto) (0-450) /uL Baso # (Auto) (0-100) /uL Sodium (137-145) mmol/L Potassium (3.4-5.1) mmol/L Chloride (98-107) mmol/L Carbon Dioxide (22-32) mmol/L BUN (9-20) mg/dL Creatinine (0.66-1.25) mg/dL Estimated GFR (>60) mL/min BUN/Creatinine Ratio (6-22) Glucose (70-100) mg/dL Calcium (8.4-10.2) mg/dL Magnesium (1.6-2.3) mg/dL Total Bilirubin (0.2-1.3) mg/dL AST (17-59) IU/L ALT (<50) IU/L Alkaline Phosphatase (38-126) U/L Total Protein (6.3-8.2) g/dL Albumin (3.5-5.0) g/dL Globulin (1.7-4.1) g/dL Albumin/Globulin Ratio (1.0-2.8) Prolactin (3.7-17.9) ng/mL Ethyl Alcohol 283 H ( - 10) mg/dL SARS-CoV-2 (PCR) Negative (Negative) Imaging Data CT scan - head: Radiologist's Impression: No acute intracranial findings or interval change US - abdomen: Radiologist's Impression: Preliminary reading no acute finding gallbladder sludge hepatic steatosis ECG Data Interpretation: Normal sinus rhythm rate 77 [place] interval 156 QRS [address] changes or T-wave inversions MDM Narrative Medical decision making narrative: Patient has had it least 3 seizures possibly to today from alcohol withdrawal. His alcohol levels noted to be 258. Kill to mid we would like to go to a detox facility. He is given 1 dose of phenobarbital. Liver enzymes are found to be elevated with bilirubin of 1.6. Ultrasound does not show any abnormality except fatty liver. Jose LAZARO updated on patient's symptoms test results Discharge Plan Departure Patient Disposition: Admitted As Inpatient Clinical Impression: Alcohol withdrawal syndrome, Seizure Admit Date/Time: 07/09/21 04:57 Admit Provider: Shanae Garcia
[2021-07-09 01:52] LABS: Ethanol (ETOH) 283 mg/dL
[2021-07-09 01:53] LABS: Alanine Aminotransferase 213 IU/L (<50); Albumin 5.2 g/dL (3.5-5.0); Albumin Globulin Ratio 1.4 (1.0-2.8); Alkaline Phosphatase 122 U/L (38-126); Aspartate Aminotransferase 592 IU/L (17-59); BUN Creatinine Ratio 29.4 (6-22); Bilirubin Total 1.6 mg/dL (0.2-1.3); Blood Urea Nitrogen 20 mg/dL (9-20); Calcium 9.4 mg/dL (8.4-10.2); Carbon Dioxide 22 mmol/L (22-32); Chloride 93 mmol/L (98-107); Estimated Glomerular Filt Rate > 60.0 mL/min (>60); Globulin 3.7 g/dL (1.7-4.1); Glucose 87 mg/dL (70-100); HEMOLYSIS 23 (0-50); Potassium 3.8 mmol/L (3.4-5.1); Sodium 141 mmol/L (137-145); Total Protein 8.9 g/dL (6.3-8.2)
[2021-07-09] MEDS: PHENobarbital 65 MG/ML VIAL 260 MG IV (02:01)
[2021-07-09] MEDS: ONDANSETRON 4 MG/2 ML INJ (02:12)
--- NOTE | 2021-07-09 03:59 | DI.US.S_ITS ---
PROCEDURE: US ABDOMEN LIMITED INDICATIONS: NAUSEA TECHNIQUE: Real-time focused scanning was performed of the abdomen, with image documentation. COMPARISON: [facility], US, US ABDOMEN LIMITED, 02/08/2021, 15:13. FINDINGS: Liver measures 18.6 cm in length. There is diffuse coarse increased echogenicity without focal lesion. Gallbladder sludge is present. No wall thickening. No pericholecystic fluid or sonographic Fink sign. No bile duct dilatation is seen. Pancreas not well seen secondary to shadowing bowel gas. IMPRESSION: Hepatomegaly. Coarse echogenic liver suggesting diffuse hepatocellular disease/fatty infiltration. Please correlate with LFTs. Gallbladder sludge otherwise no additional sonographic criteria for acute cholecystitis. Additional chronic/incidental findings as above. Findings concordant with preliminary study interpretation. Dictated by: Prudencio Abbasi M.D. on 07/09/2021 at 8:16 Approved by: Prudencio Abbasi M.D. on 07/09/2021 at 8:19
[2021-07-09 04:26] LABS: COVID19 - ADMIT (NP swab/PCR) Negative (Negative)
[2021-07-09] MEDS: ONDANSETRON 4 MG/2 ML INJ IV ×2 (05:25→05:58)
[2021-07-09] MEDS: SODIUM CHLORIDE 0.9% 1,000 ML 100 ML IV ×2 (06:01→18:47)
--- NOTE | 2021-07-09 06:16 | P.HP_ITS ---
History of Present Illness History of Present Illness Date Patient Seen: 07/09/21 Time Patient Seen: 04:19 Chief complaint: had seizure earlier/thinks he may have another Narrative: ?Patient is a 31-year-old male Ken Donnelly with history of HTN, alcohol abuse with seizures presenting today with 2 witnessed seizures by his father.? He apparently was in a detox facility in [place] 10 days ago when he had a seizure and he was discharged from the detox facility.? At time he fell and hit his head requiring sutures in his lip.? He was seen and evaluated by his PCP on July 05 for suture removal.? Patient says that he started drinking pretty quickly after he was released from detox.? He would like to be sober but is afraid that they will have another seizure.? He had 2 witnessed seizures today by his dad.? Shaking all over.? He is not sure that he bit his tongue.? He has 2 black eyes not sure what those are from either.? Patient was hospitalized here 03/15/2021 for alcohol withdrawal with seizures and was found subsequently positive for COVID. He was discharged on a lithium taper. In the ED he was feeling shaky and concerned that he may have another seizure. Patient was given of loading dose phenobarbital 260 mg. Upon admit patient was moderately sedated from medication following phenobarbital and Zofran. Unable to participate in admit HPI or ROS at this time. Patient's admit vitals temp 97.5?, BP 122/77, HR 66, RR 18, O2 saturation 98% on room air. Patient has a platelet count of 61, chloride of 93, total bili 1.6, AST 592, ALT 213, total protein 8.9, albumin 5.2, and alcohol 283. Patient's head CT was negative for any acute intracranial processes. Id patient's EKG normal sinus rhythm with a ventricular rate of [address] or T-wave changes. Patient admitted for alcoholic withdrawal in the setting of alcohol abuse with seizures. Patient History Medical History Alcohol abuse COVID-19 Hypertension Lip laceration Surgical History No history of previous surgery Family & Social History Family History Other First degree relatives alive and well Social History: household members none Prior Living Arrangements House Safety & Behavioral: Feels Safe in Current Yes Environment Suicidal Ideation Description None Tobacco & Substance use: Smoking Status Current every day smoker alcohol intake frequency 3 or more drinks per day Substance Use Type does not use Meds Home Medications and Allergies Home Medications Medication Instructions Recorded Confirmed Type buspirone 5 mg tablet 5 mg PO BID #60 tab 07/05/21 07/09/21 Rx metoprolol succinate 25 mg 25 mg PO DAILY #30 tab 07/05/21 07/09/21 Rx tablet,extended release 24 hr Allergies Allergy/AdvReac Type Severity Reaction Status Date / Time cephalexin Allergy Verified 07/09/21 00:45 marijuana Allergy Verified 07/09/21 00:45 ssri Allergy Uncoded 07/09/21 00:45 Review of Systems Review of Systems Narrative: Patient unable to participate in ROS due to medications sedation for seizure prevention in alcohol withdrawal. Exam Vital Signs (past 8 hours): - 07/09/21 00:45 07/09/21 01:00 07/09/21 01:30 Temperature 97.5 F L Pulse Rate 79 72 71 Respiratory Rate 20 11 L 11 L Blood Pressure 135/97 H 125/83 129/83 Pulse Oximetry 99 97 99 07/09/21 02:00 07/09/21 02:03 07/09/21 02:08 Temperature Pulse Rate 98 H 90 81 Respiratory Rate 17 6 L 20 Blood Pressure 153/99 H 128/89 Pulse Oximetry 100 95 98 07/09/21 02:30 07/09/21 03:00 07/09/21 03:30 Temperature Pulse Rate 69 68 79 Respiratory Rate 12 14 11 L Blood Pressure 120/78 106/62 120/82 Pulse Oximetry 97 95 97 07/09/21 04:00 07/09/21 04:30 07/09/21 05:00 Temperature Pulse Rate 66 69 82 Respiratory Rate 8 L 12 12 Blood Pressure 122/77 118/79 135/89 Pulse Oximetry 98 97 96 07/09/21 05:32 Temperature 98.7 F Pulse Rate 86 Respiratory Rate 16 Blood Pressure 151/104 H Pulse Oximetry 98 Oxygen Delivery Method Room Air Oxygen Flow Rate 0 Narrative Exam Narrative: GENERAL: Well-appearing, well-nourished, moderately sedated in bed and in no acute distress. HEENT: Head atraumatic, bilateral periorbital contusions no significant swelling face symmetric CARDIOVASCULAR: Regular rate and rhythm without murmurs, rubs or gallops. RESPIRATORY: Breath sounds equal bilaterally, no wheezes rales or rhonchi. ABDOMEN: Soft, nontender BS x4 present. EXTREMITIES: no clubbing or edema.? Neurovascularly intact, pulses intact NEUROLOGICAL: Unable to asses due to sedation SKIN: Warm, dry, no new laceration, no petechiae, no rashes or lesions. Objective Labs Result Diagrams: 07/09/21 00:50 07/09/21 00:50 Labs: Laboratory Results - last 24 hr 07/09/21 07/09/21 07/09/21 00:50 00:50 00:50 WBC 4.7 RBC 4.21 L Hgb 13.9 Hct 40.7 L MCV 96.5 MCH 32.9 MCHC 34.1 RDW 13.2 Plt Count 61 L Neut % (Auto) 66.9 Lymph % (Auto) 24.1 L [place] % (Auto) 8.0 Eos % (Auto) 0.1 L Baso % (Auto) 0.9 Neut # (Auto) 3100 Lymph # (Auto) 1100 [place] # (Auto) 400 Eos # (Auto) 0 Baso # (Auto) 0 Sodium 141 Potassium 3.8 Chloride 93 L Carbon Dioxide 22 BUN 20 Creatinine 0.68 Estimated GFR > 60.0 BUN/Creatinine Ratio 29.4 H Glucose 87 Calcium 9.4 Magnesium 1.8 Total Bilirubin 1.6 H AST 592 H ALT 213 H Alkaline Phosphatase 122 Total Protein 8.9 H Albumin 5.2 H Globulin 3.7 Albumin/Globulin Ratio 1.4 Prolactin 17.5 Ethyl Alcohol SARS-CoV-2 (PCR) 07/09/21 07/09/21 00:50 03:20 WBC RBC Hgb Hct MCV MCH MCHC RDW Plt Count Neut % (Auto) Lymph % (Auto) [place] % (Auto) Eos % (Auto) Baso % (Auto) Neut # (Auto) Lymph # (Auto) [place] # (Auto) Eos # (Auto) Baso # (Auto) Sodium Potassium Chloride Carbon Dioxide BUN Creatinine Estimated GFR BUN/Creatinine Ratio Glucose Calcium Magnesium Total Bilirubin AST ALT Alkaline Phosphatase Total Protein Albumin Globulin Albumin/Globulin Ratio Prolactin Ethyl Alcohol 283 H SARS-CoV-2 (PCR) Negative Assessment & Plan Assessment & Plan narrative: Ken Donnelly is a 30-year-old male with a past medical history of HTN, alcohol withdrawal and seizures who will be admitted for alcohol withdrawal. 1. Alcohol withdrawal with witnessed seizure, in the setting of alcohol abuse, acute on chronic, present on admission -Initial: platelet count of 61, chloride of 93, total bili 1.6, AST 592, ALT 213, total protein 8.9, albumin 5.2, and alcohol 283. -last admit for alcohol withdrawal with seizure/alcohol abuse 03/15/2021 -2 seizures yesterday witnessed per father. Patient has had no seizure activity while in the facility. -[facility] protocol -Seizure, Fall, Aspiration precaution -patient was given a loading dose of phenobarbital to 160 mg in the ED -Ativan per [facility] protocol, Zofran and antiemetic management -monitor for over sedation, prolonged hypertension, tachycardia, refractory DTs, cardiac or respiratory failure. -to patient placed on telemedicine -thiamine, folic acid and multivitamins -patient will be provided with education regarding alcohol cessation 2.Essential Hypertension, chronic, present on admission- well controlled -continue home metoprolol 25 mg extended release daily 3. Malnutrition secondary to alcohol abuse as evidence by BMI 21, acute on chr onic, present on admission -dietary consult ordered Code status: Full code Surrogate decision maker: Father Aleksander Donnelly COVID PCR: Negative COVID Positive infection: 03/15/2021 VTE/DVT prophylaxis:? Heparin 5000 units b.i.d. and SCDs Disposition: Estimated length of stay less than 2 midnights I have utilized all available immediate resources to obtain, update, or review the patient's current medications. I confirmed that the patient's advanced care plan is present, Code status is do cumented and/or surrogate decision maker is listed in the patient's medical record. Time Spent With Patient Critical Care time: I spent a total of [] minutes of critical care time on this patient's care today; this time is exclusive of procedural time.
[2021-07-09 06:44] LABS: Phosphorous 3.7 mg/dL (2.5-4.5)
[2021-07-09 06:50] LABS: INR 1.1 (0.9-1.3); Prothrombin Time 12.5 SECONDS (10.1-12.7)
[2021-07-09 06:53] LABS: PTT Partial Thromboplastin Tim 30 SECONDS (26.4-36.2)
[2021-07-09 06:54] LABS: BUN Creatinine Ratio 30.2 (6-22); Blood Urea Nitrogen 16 mg/dL (9-20); Calcium 8.2 mg/dL (8.4-10.2); Carbon Dioxide 21 mmol/L (22-32); Chloride 97 mmol/L (98-107); Estimated Glomerular Filt Rate > 60.0 mL/min (>60); Glucose 74 mg/dL (70-100); HEMOLYSIS < 15 (0-50); Potassium 3.7 mmol/L (3.4-5.1); Sodium 137 mmol/L (137-145)
[2021-07-09] MEDS: MULTIVITAMIN 1 TABLET 1 TAB PO (09:35)
[2021-07-09] MEDS: FOLIC ACID 1 MG TABLET PO (09:35)
[2021-07-09] MEDS: HEPARIN 5,000 UNIT/ML VIAL 5000 UNIT SUBCUT (09:36)
[2021-07-09] MEDS: THIAMINE 100 MG TABLET PO (09:36)
[2021-07-09] MEDS: LORazepam 2 MG/ML INJ 1 MG IV ×4 (09:50→20:21)
[2021-07-09] MEDS: BUSPIRONE 5 MG TABLET PO ×2 (13:28→20:21)
[2021-07-09] MEDS: METOPROLOL ER 25 MG TABLET PO (13:28)
--- NOTE | 2021-07-09 14:19 | DIET.CONS ---
Dietary Consultation Note RD Note: Pt c CIWA >10, holding off on nutrition consultation. Will have kitchen send finger foods, easy to eat items if pt does not order meals secondary to moderate withdrawl muscle tremors. Ht: 182.88 cm Wt: 70.3 kg BMI: 23.7 UBW: Last BM: 07/08/21 (07/09/21 05:48) MNA: 14 Josh Score: 23 Diet: 07/09/21 Breakfast Heart Healthy Diet Diet Modifications: Percent of last meal consumed (last 48h) Percent Meal Consumed has some yogurt and ice cream 07/09/21 12:17 Percent Meal Consumed 0% 07/09/21 10:17 Labs: RBC 4.21 X10^6/uL (4.5-5.9) L 07/09/21 00:50 Hgb 13.9 g/dL (13.5-17.5) 07/09/21 00:50 Hct 40.7 % (41-53) L 07/09/21 00:50 Creatinine 0.53 mg/dL (0.66-1.25) L 07/09/21 06:35 Monitoring/Evaluations: recheck nutrition consult appropriateness and POs tomorrow.
[2021-07-09 14:50] LABS: Appearance Urine UA CLEAR; Bilirubin Urine UA NEGATIVE (NEGATIVE); Color Urine UA YELLOW; Glucose Urine UA NEGATIVE (Negative); Ketones Urine UA 1+ (NEGATIVE); Leukocyte Esterase Urine UA NEGATIVE (NEGATIVE); Nitrite Urine UA NEGATIVE (Negative); Occult Blood Urine UA TRACE-LYSED (Negative); Protein Urine UA 2+ (Negative); Specific Gravity Urine UA 1.015 (1.000-1.035); Urobilinogen Urine UA 0.2 E.U./dL (0.2); pH Urine UA 6.5 (4.5-8.0)
[2021-07-09 14:56] LABS: UR Morphine/Opiate cutoff 300 Negative (Negative); Ur Creatinine Normal (Normal); Ur Specific Gravity Normal (Normal); Urine Amphetamines Negative (Negative); Urine Barbiturates Negative (Negative); Urine Benzodiazepines Positive (Negative); Urine Cocaine Negative (Negative); Urine MDMA Negative (Negative); Urine Methadone Negative (Negative); Urine Methamphetamines Negative (Negative); Urine Oxycodone Negative (Negative); Urine Phencyclidine Negative (Negative); Urine Tetrahydrocannabinol Negative (Negative); Urine Tricyclic Antidepressant Negative (Negative); Urine pH Normal (Normal)
--- NOTE | 2021-07-09 15:39 | PC.NURSE ---
Shift note: pt required Ativan x 2 on day shift for c/o anxiety, mild tremors, light sensitivity and headache with nausea and dry heaving. Ativan effective to alleviate withdrawal symptoms. Up to bathroom to void, using call light. Seizure pads remain intact. IV with NS infusing at 100 ml/hr. Shift report given to Shira LEE. Checked on pt together and he is sleeping.
--- NOTE | 2021-07-09 15:48 | CM.DPNOTE ---
Patient is a 31 yo male who was admitted on 07/09/21 for Seizure. Pt has [employer] and [employer] for insurance and his PCP is Dr. Aman Wright. EMR was reviewed. Per MD, pt with hx of ETOH w/ seizures and admitted for ETOH withdrawal and detox. Pt last admitted in February 2021 this year for similar for ETOH withdrawal and was COVID+ and was able to d/c home with resources as his initial plan of social detox was unable to happen due to his COVID+ status. Pt resides at home on [address] and has local family who observed pt's current seizures prior to pt's admission to the hospital today. SW attempted to meet bedside with pt as RN states pt has expressed interest in ETOH tx but when SW introduced self bedside to pt he confirms he is starting to withdrawal and dry heaving, anxiety, tremors, and requests SW come back. Pt looks quite disheveled, unkept, bruising on his face from falls, still with pants and shoes on in bed. SW attempted again but pt had just been sedated due to his increased CIWA scores and unable to complete bedside assessment at this time. Per previous SW note from pt's last admission in February: Patient states he has been to rehab at [place] twice and he feels in control of his sobriety when in treatment but faces triggers in the community. Patient states he is actively working on being sober and is connected with AA meetings and a sponsor he has know since he was 15 years old. Patient endorses that he started out as a social alcoholic having 4-5 drinks of cheap beer of whiskey a night and it was not interfering with his day to day activities. Patient states his alcoholism increased to a fifth of whiskey and a 6 pack of beer a night. Patient states he can present as sober and have a HARRY of 457. Pt has also been to [facility] in [place] and had plans to go to [facility] but pt tends to relapse quickly once discharged to the community. Plan: SW to follow closely for bedside assessment with pt when more medically appropriate towards determining d/c planning needs and likely assist with ETOH tx/resources if pt still agreeable. GABRIELA Camacho
--- NOTE | 2021-07-09 16:19 | PC.NURSE ---
Addendum entered by Shira Whitt R.N. 07/09/21 18:33: Per Dr. Henderson, can change all ativan orders to q4 hours instead of q6 hours. Given 1mg of ativan at 1821, before changing frequency in the computer. This was given after 5 hours, within the time frame okay'd by provider. Addendum entered by Shira Whitt R.N. 07/09/21 16:56: Discussed with coordinator Bushra and added CIWA protocol to all ativan orders. Original Note: Ativan not ordered per CIWA protocol, only prn for anxiety. Discussed with Dr. Henderson and he states that I should base off of withdrawl symptoms and anxiety, but assess CIWA per protocol. Last CIWA at 1600 was 3. Will reassess in 4 hours.
--- NOTE | 2021-07-09 16:28 | P.PN_ITS ---
Subjective Subjective Date Patient Seen: 07/09/21 Interval history: Patient having mild withdrawal symptoms relieved with Ativan. Exam Vital Signs (past 8 hours): - 07/09/21 09:20 07/09/21 10:00 07/09/21 12:17 Temperature 98.2 F 98.2 F Pulse Rate 97 H 88 97 H Respiratory Rate 16 18 18 Blood Pressure 153/92 H 153/72 H 145/92 H Pulse Oximetry 98 98 98 07/09/21 13:28 07/09/21 14:00 07/09/21 14:19 Temperature Pulse Rate 85 Respiratory Rate 16 Blood Pressure 145/82 H Pulse Oximetry 99 07/09/21 14:32 07/09/21 14:34 07/09/21 14:38 Temperature Pulse Rate 90 91 H 91 H Respiratory Rate Blood Pressure 131/98 H 134/87 134/87 Pulse Oximetry 07/09/21 16:04 Temperature 98.6 F Pulse Rate 87 Respiratory Rate 18 Blood Pressure 141/84 H Pulse Oximetry 99 Oxygen Delivery Method Room Air Oxygen Flow Rate 0 Narrative Exam Narrative: General: Slightly sleepy, cooperative Neurological: Oriented, affect normal, speech normal, no tremor Objective Labs Result Diagrams: 07/09/21 00:50 07/09/21 06:35 Labs: Laboratory Results - last 24 hr 07/09/21 07/09/21 07/09/21 00:50 00:50 00:50 WBC 4.7 RBC 4.21 L Hgb 13.9 Hct 40.7 L MCV 96.5 MCH 32.9 MCHC 34.1 RDW 13.2 Plt Count 61 L Neut % (Auto) 66.9 Lymph % (Auto) 24.1 L [place] % (Auto) 8.0 Eos % (Auto) 0.1 L Baso % (Auto) 0.9 Neut # (Auto) 3100 Lymph # (Auto) 1100 [place] # (Auto) 400 Eos # (Auto) 0 Baso # (Auto) 0 PT INR APTT Sodium 141 Potassium 3.8 Chloride 93 L Carbon Dioxide 22 BUN 20 Creatinine 0.68 Estimated GFR > 60.0 BUN/Creatinine Ratio 29.4 H Glucose 87 Calcium 9.4 Phosphorus Magnesium 1.8 Total Bilirubin 1.6 H AST 592 H ALT 213 H Alkaline Phosphatase 122 Total Protein 8.9 H Albumin 5.2 H Globulin 3.7 Albumin/Globulin Ratio 1.4 Prolactin 17.5 Urine Color Urine Appearance Urine pH Ur Specific [place] Urine Protein Urine Glucose (UA) Urine Ketones Urine Occult Blood Urine Nitrate Urine Bilirubin Urine Urobilinogen Ur Leukocyte Esterase U Opiates 300ng/mL cut Ur Oxycodone Screen Urine Methadone Screen Ur Barbiturates Screen U Tricyclic Antidepress Ur Phencyclidine Scrn Ur Amphetamines Screen U Methamphetamines Scrn Ur MDMA Scrn (Ecstasy) U Benzodiazepines Scrn Urine Cocaine Screen U Marijuana (THC) Screen Ethyl Alcohol SARS-CoV-2 (PCR) 07/09/21 07/09/21 07/09/21 00:50 00:50 03:20 WBC RBC Hgb Hct MCV MCH MCHC RDW Plt Count Neut % (Auto) Lymph % (Auto) [place] % (Auto) Eos % (Auto) Baso % (Auto) Neut # (Auto) Lymph # (Auto) [place] # (Auto) Eos # (Auto) Baso # (Auto) PT INR APTT Sodium Potassium Chloride Carbon Dioxide BUN Creatinine Estimated GFR BUN/Creatinine Ratio Glucose Calcium Phosphorus 3.7 Magnesium Total Bilirubin AST ALT Alkaline Phosphatase Total Protein Albumin Globulin Albumin/Globulin Ratio Prolactin Urine Color Urine Appearance Urine pH Ur Specific [place] Urine Protein Urine Glucose (UA) Urine Ketones Urine Occult Blood Urine Nitrate Urine Bilirubin Urine Urobilinogen Ur Leukocyte Esterase U Opiates 300ng/mL cut Ur Oxycodone Screen Urine Methadone Screen Ur Barbiturates Screen U Tricyclic Antidepress Ur Phencyclidine Scrn Ur Amphetamines Screen U Methamphetamines Scrn Ur MDMA Scrn (Ecstasy) U Benzodiazepines Scrn Urine Cocaine Screen U Marijuana (THC) Screen Ethyl Alcohol 283 H SARS-CoV-2 (PCR) Negative 07/09/21 07/09/21 07/09/21 06:35 06:35 12:07 WBC RBC Hgb Hct MCV MCH MCHC RDW Plt Count Neut % (Auto) Lymph % (Auto) [place] % (Auto) Eos % (Auto) Baso % (Auto) Neut # (Auto) Lymph # (Auto) [place] # (Auto) Eos # (Auto) Baso # (Auto) PT 12.5 INR 1.1 APTT 30 Sodium 137 Potassium 3.7 Chloride 97 L Carbon Dioxide 21 L BUN 16 Creatinine 0.53 L Estimated GFR > 60.0 BUN/Creatinine Ratio 30.2 H Glucose 74 Calcium 8.2 L Phosphorus Magnesium Total Bilirubin AST ALT Alkaline Phosphatase Total Protein Albumin Globulin Albumin/Globulin Ratio Prolactin Urine Color Yellow Urine Appearance Clear Urine pH 6.5 Ur Specific [place] 1.015 Urine Protein 2+ H Urine Glucose (UA) Negative Urine Ketones 1+ H Urine Occult Blood Trace-lysed Urine Nitrate Negative Urine Bilirubin Negative Urine Urobilinogen 0.2 Ur Leukocyte Esterase Negative U Opiates 300ng/mL cut Ur Oxycodone Screen Urine Methadone Screen Ur Barbiturates Screen U Tricyclic Antidepress Ur Phencyclidine Scrn Ur Amphetamines Screen U Methamphetamines Scrn Ur MDMA Scrn (Ecstasy) U Benzodiazepines Scrn Urine Cocaine Screen U Marijuana (THC) Screen Ethyl Alcohol SARS-CoV-2 (PCR) 07/09/21 12:07 WBC RBC Hgb Hct MCV MCH MCHC RDW Plt Count Neut % (Auto) Lymph % (Auto) [place] % (Auto) Eos % (Auto) Baso % (Auto) Neut # (Auto) Lymph # (Auto) [place] # (Auto) Eos # (Auto) Baso # (Auto) PT INR APTT Sodium Potassium Chloride Carbon Dioxide BUN Creatinine Estimated GFR BUN/Creatinine Ratio Glucose Calcium Phosphorus Magnesium Total Bilirubin AST ALT Alkaline Phosphatase Total Protein Albumin Globulin Albumin/Globulin Ratio Prolactin Urine Color Urine Appearance Urine pH Ur Specific [place] Urine Protein Urine Glucose (UA) Urine Ketones Urine Occult Blood Urine Nitrate Urine Bilirubin Urine Urobilinogen Ur Leukocyte Esterase U Opiates 300ng/mL cut Negative Ur Oxycodone Screen Negative Urine Methadone Screen Negative Ur Barbiturates Screen Negative U Tricyclic Antidepress Negative Ur Phencyclidine Scrn Negative Ur Amphetamines Screen Negative U Methamphetamines Scrn Negative Ur MDMA Scrn (Ecstasy) Negative U Benzodiazepines Scrn Positive H Urine Cocaine Screen Negative U Marijuana (THC) Screen Negative Ethyl Alcohol SARS-CoV-2 (PCR) PFSH Medical History Alcohol abuse COVID-19 Hypertension Lip laceration Surgical History No history of previous surgery Family History Other First degree relatives alive and well Social History household members: none Smoking Status: Current every day smoker Assessment & Plan Assessment & Plan narrative: 1. Alcohol withdrawal with witnessed seizure, in the setting of alcohol abuse, acute on chronic, present on admission -Initial: platelet count of 61, chloride of 93, total bili 1.6, AST 592, ALT 213, total protein 8.9, albumin 5.2, and alcohol 283. -last admit for alcohol withdrawal with seizure/alcohol abuse 03/15/2021 -2 seizures yesterday witnessed per father.? Patient has had no seizure activity while in the facility. -[facility] protocol -Seizure, Fall, Aspiration precaution -patient was given a loading dose of phenobarbital to 160 mg in the ED -Ativan per [facility] protocol, Zofran and antiemetic management -monitor for over sedation, prolonged hypertension, tachycardia, refractory DTs, cardiac or respiratory failure. -to patient placed on telemedicine -thiamine, folic acid and multivitamins -patient will be provided with education regarding alcohol cessation 2.Essential Hypertension, chronic, present on admission- well controlled -continue home metoprolol 25 mg extended release daily 3. Malnutrition secondary to alcohol abuse as evidence by BMI 21, acute on chronic, present on admission -dietary consult ordered Time Spent With Patient Critical Care time: I spent a total of [] minutes of critical care time on this patient's care today; this time is exclusive of procedural time.
[2021-07-09] MEDS: ACETAMINOPHEN 325 MG TABLET 650 MG PO (20:21)
[2021-07-10] VITALS (12 sets, daily range): BP systolic 129–145; BP diastolic 87–99; PULSE 79–88; RESP 14–18; TEMP 36.7–36.9; O2SAT 97–99
[2021-07-10] MEDS: LORazepam 1 MG TABLET 2 MG PO ×2 (01:21→11:45)
[2021-07-10] MEDS: ONDANSETRON 4 MG/2 ML INJ IV (01:21)
[2021-07-10] MEDS: SODIUM CHLORIDE 0.9% 1,000 ML 100 ML IV (05:12)
[2021-07-10 06:07] LABS: BUN Creatinine Ratio 22.2 (6-22); Blood Urea Nitrogen 10 mg/dL (9-20); Calcium 8.4 mg/dL (8.4-10.2); Carbon Dioxide 23 mmol/L (22-32); Chloride 97 mmol/L (98-107); Estimated Glomerular Filt Rate > 60.0 mL/min (>60); Glucose 82 mg/dL (70-100); HEMOLYSIS < 15 (0-50); Magnesium 1.2 mg/dL (1.6-2.3); Potassium 3.3 mmol/L (3.4-5.1); Sodium 133 mmol/L (137-145)
[2021-07-10] MEDS: METOPROLOL ER 25 MG TABLET PO (08:09)
[2021-07-10] MEDS: LORazepam 2 MG/ML INJ 1 MG IV ×2 (08:09→13:49)
[2021-07-10] MEDS: MULTIVITAMIN 1 TABLET 1 TAB PO (08:10)
[2021-07-10] MEDS: THIAMINE 100 MG TABLET PO (08:10)
[2021-07-10] MEDS: FOLIC ACID 1 MG TABLET PO (08:10)
[2021-07-10] MEDS: BUSPIRONE 5 MG TABLET PO (08:10)
--- NOTE | 2021-07-10 10:44 | CM.DPC ---
Addendum entered by Roselyn Perrin R.N. 07/10/21 14:41: Patient will be discharging home today, instead of tomorrow. He will be going home. Addendum entered by Roselyn Perrin R.N. 07/10/21 14:33: Met with patient to follow up on [facility] rehab. Had also asked patient prior, if he was interested in [facility] [place] detox. He stated, he was not interested in [place], he had been there before. Asked him if he had called [facility] detox intake. He indicated, he did call them, but could not take me because of my having a seizure. Asked patient if he would like case management to call any other facilities, and he stated, I think that I just want to go home, my dad is supportive, and can pick me up. He also indicated, I can do my own research at home to find inpatient places. Called [facility] detox to follow up to inquire about them not accepting secondary to seizures. Spoke to Leidy at [facility] who had checked his chart. She indicated that it was not flagged about accepting him because of seizures, but was about interaction with some of the staff, as he would need to have a behavioral contract. Updated hospitalist, Dr. Henderson, regarding this matter. He plans to discharge patient home tomorrow with an Ativan taper. Patient is aware that he will discharge home tomorow, and that his father will pick him up. Original Note: DCP Cont: GABRIELA Wolf, and this field nurse case manager met with patient. Dr. Henderson, in rounds, was discussing discharging patient on an Ativan taper. Asked patient if he would be interested in going back to outpatient rehab for alcohol. Asked him about going back to [facility]. He indicated, he and [facility] don't get along, and would like to try [facility]. Asked him if he would be willing to call [facility] rehab for intake, and indicated, he would. Maryann had called [facility],and they indicated that now, they don't have beds, but can change today. Will follow up with them around noon, and will keep hospitalist updated. P: DCP to continue to follow, and will follow up with [facility] rehab, and have patient contact them for intake. Roselyn Perrin RN/[facility]
[2021-07-10] MEDS: MAGNESIUM SULFATE 2 GM/50 ML PIGGYBACK IV (13:42)
[2021-07-10] MEDS: NICOTINE 21 MG PATCH TOP (13:43)
[2021-07-10] MEDS: POTASSIUM CHLORIDE IN WATER 10 MEQ/100 ML PIGGYBACK 100 MEQ IV (13:48)
--- NOTE | 2021-07-10 15:03 | PM.DS.1 ---
History of Present Illness History of Present Illness Chief complaint: had seizure earlier/thinks he may have another Narrative: Patient is a 31-year-old male Ken Donnelly with history of HTN, alcohol abuse with seizures presenting today with 2 witnessed seizures by his father. He apparently was in a detox facility in [place] 10 days ago when he had a seizure and he was discharged from the detox facility. Discharge Providers Provider Date of admission: 07/09/21 04:57 Discharge Date: 07/10/21 Primary care physician: Aman Wright DO Consults: 07/09/21 04:09 Consult to Dietitian, Adult Routine Comment: Reason For Exam: ETOH w/d Discharge provider: Kendrick Henderson MD Summary Hospital Course Discharge Diagnosis: 1. Acute ETOH withdrawal 2. Recurrent seizures secondary to 1. 3. Hypertension Patient was admitted and put on lorazepam per [facility] protocol. He had no further seizures. His ETOH withdrawal symptoms were well managed. We were going to keep him 1 additional day in hospital but patient abruptly decided to leave the hospital due to a ?personal Emergency ?. He did not leave Against Medical Advice as he was quite stable prior to discharge. I have discharged him on lorazepam as needed for ETOH withdrawal and he was provided resources for ETOH dependency treatment. On exam, vitals are stable. He is alert, oriented, not tremulous, normal balance walking around in room Status at Discharge Overall status at discharge: patient is progressing back to baseline Exam Vital Signs (past 8 hours): - 07/10/21 08:09 07/10/21 08:30 07/10/21 09:03 Temperature 98.5 F Pulse Rate 85 85 Respiratory Rate 16 18 Blood Pressure 145/98 H 145/99 H 145/99 H Pulse Oximetry 99 07/10/21 09:41 07/10/21 09:42 07/10/21 13:23 Temperature 98.1 F Pulse Rate 88 Respiratory Rate 18 Blood Pressure 129/87 Pulse Oximetry 98 98 99 07/10/21 13:35 Temperature Pulse Rate 85 Respiratory Rate 18 Blood Pressure 129/87 Pulse Oximetry Oxygen Delivery Method Room Air Oxygen Flow Rate 0 Objective Labs Result Diagrams: 07/09/21 00:50 07/10/21 05:35 Labs: Laboratory Results - last 24 hr 07/10/21 05:35 Sodium 133 L Potassium 3.3 L Chloride 97 L Carbon Dioxide 23 BUN 10 Creatinine 0.45 L Estimated GFR > 60.0 BUN/Creatinine Ratio 22.2 H Glucose 82 Calcium 8.4 Magnesium 1.2 L PFSH Medical History Alcohol abuse COVID-19 Hypertension Lip laceration Surgical History No history of previous surgery Family History Other First degree relatives alive and well Social History household members: none Smoking Status: Current every day smoker Discharge Plan Discharge Plan Patient Disposition: Home Discharge orders & Medications Prescriptions: New lorazepam 1 mg tablet 1 mg PO Q4-6H PRN (Reason: alcohol withdrawal) Qty: 25 RF: 0 Continued metoprolol succinate 25 mg tablet extended release 24 hr 25 mg PO DAILY Qty: 30 RF: 2 buspirone 5 mg tablet 5 mg PO BID Qty: 60 RF: 2 Follow up/Referrals: Aman Wright DO [Primary Care Provider] - Diet/Activity/Treatments Diet: Diet as Tolerated Visit Report/Discharge Packet Instructions: Drug and Alcohol Withdrawal, Lorazepam, Metoprolol Discharge Data Primary Care Provider: Aman Wright
--- NOTE | 2021-07-10 16:13 | PC.NURSE ---
Discharge summary late entry for 1500: pt wanting to leave abruptly after a conversation on the phone. This RN able to hear female voice yelling at patient. Pt states he needs to leave urgently to take care of some personal and possibly legal matters. Pt states he needs to leave right now. Notified Dr Henderson. He saw patient/spoke with him and signed off on his discharge. Iv discontinued. Pt did not receive full doses of KCL replacement or Magnesium replacement. Discharge packet printed and pt reviewed and signed. Left with all his belongings.
== END 2021-07-10 15:00 | disposition home or self-care (01) | DRG 775 ==
LOC: ED 01:39 → AC 04:58
PROVIDERS: Admitting Provider Nurse Practitioner Family; Emergency Provider Emergency Medicine; PCP Family Medicine; Referring Provider Emergency Medicine; Visit Provider Nurse Practitioner Family
DX: F10.139 Alcohol abuse with withdrawal, unspecified (principal); Y90.8 Blood alcohol level of 240 mg/100 ml or more; G40.89 Other seizures; F17.200 Nicotine dependence, unspecified, uncomplicated; I10 Essential (primary) hypertension; Z20.822 Contact with and (suspected) exposure to COVID-19
CPT/HCPCS: 36415; 70450; 76705; 80048; 80053; 80305; 80320; 81003; 83735; 84100; 84146; 85025; 85610; 85730; 87635; 93005; 93010; 94760; 96361; 96374; 99284; 99285; C9803; J1644; J2060; J2405; J2560; J3475

== ENCOUNTER 2021-07-19 18:59 | Emergency (ER) | payer OTHER, MEDICAID, SELFPAY ==
[2021-07-09 05:48] VITALS: BMI 23.7
[2021-07-19] VITALS (7 sets, daily range): BP systolic 129–130; BP diastolic 81–83; PULSE 96–117; RESP 12–17; TEMP 36.8; O2SAT 95–97; BMI 23.8
--- NOTE | 2021-07-19 20:23 | ED.SEIZURE ---
HPI - Seizure General Chief Complaint: Seizure Stated Complaint: alcohol and drug withdrawl, seizure Time Seen by Provider: 07/19/21 20:23 Source: patient Mode of arrival: Wheelchair Limitations: no limitations History of Present Illness HPI Narrative: 31-year-old male daily smoker with extensive history of alcohol abuse states that he had a seizure sometime last night and has been recently tapering down on his seizure medications. he states that he is hoping to quit using alcohol and is set to go to a detox facility today or Friday. He states he last had a few beers earlier today. He denies any headache or blurred vision. He is slurring his words a bit on arrival. He denies any vomiting but is feeling nauseated. He denies any suicidal or homicidal ideation Related Data Previous Rx's Medication Instructions Recorded buspirone 5 mg tablet 5 mg PO BID #60 tab 07/05/21 metoprolol succinate 25 mg 25 mg PO DAILY #30 tab 07/05/21 tablet,extended release 24 hr lorazepam 1 mg tablet 1 mg PO Q4-6H PRN #25 tab 07/10/21 lorazepam 1 mg tablet (Ativan) See Rx Instructions .ROUTE 07/20/21 .COMPLEX PRN #19 tab Allergies Allergy/AdvReac Type Severity Reaction Status Date / Time cephalexin Allergy Verified 07/09/21 00:45 marijuana Allergy Verified 07/09/21 00:45 ssri Allergy Uncoded 07/09/21 00:45 Review of Systems Review of Systems Narrative: GENERAL: Denies chills, fatigue, malaise, fever, sweats. HEENT: Denies sinus pain, ear pain, sore throat, difficulty swallowing, dizziness. RESPIRATORY: Denies dyspnea, cough, wheezing, hemoptysis, sputum. CARDIOVASCULAR: Denies chest pain, palpitations, orthopnea, edema, GASTROINTESTINAL: see HPI : Denies dysuria, frequency, incontinence, hematuria, urinary retention. MUSCULOSKELETAL: denies weakness, joint pain, or bony pain SKIN: Denies rash, skin lesions, or other NEUROLOGIC: See HPI PSYCHIATRIC: No concerning psychosocial issues. 12 point review of systems is negative except for those stated above Patient History Medical History Alcohol abuse COVID-19 Hypertension Lip laceration Surgical History No history of previous surgery Family History Other First degree relatives alive and well Social History household members: none Smoking Status: Current every day smoker Smoking Status: Current every day smoker tobacco type: cigarettes alcohol intake frequency: 3 or more drinks per day Alcohol type: hard liquor Substance Use Type: does not use Exam Narrative Exam Narrative: GENERAL: [31] year old patient appears stated age. Well-developed patient, in mild distress.Slurring his words a bit and a bit unsteady in his gait HEAD: Atraumatic. Normocephalic. EYES: Pupils equal round and reactive. Extraocular motions intact. No scleral icterus. No injection or drainage. ENT: Nose without bleeding, purulent drainage. Throat without erythema, tonsillar hypertrophy or exudate. Airway patent. NECK: Trachea midline. Non tender CARDIOVASCULAR: Regular rate and rhythm without murmurs, gallops, or rubs. RESPIRATORY: Clear to auscultation. Breath sounds equal bilaterally. No wheezes, rales, or rhonchi. GASTROINTESTINAL: Abdomen soft, non-tender, nondistended. EXTREMITIES: No edema or joint tenderness. BACK: Nontender without deformity or crepitance. No flank tenderness. NEURO: AOx3. SKIN: No rash or erythema of visible areas Initial Vital Signs Initial Vital Signs: Vital Signs Temperature 98.2 F 07/19/21 19:14 Pulse Rate 117 H 07/19/21 19:14 Respiratory Rate 16 07/19/21 19:14 Blood Pressure 130/83 07/19/21 19:14 Pulse Oximetry 97 07/19/21 19:14 Course Orders Ordered: ED Orders 07/19/21 21:19 Complete Blood Count AUTO DIFF Stat Comprehensive Metabolic Panel Stat Ethanol (ETOH) Stat Hepatic (Liver) Panel Stat Lipase Stat Magnesium Stat 07/19/21 21:22 Urine Drug Screen, Rapid Stat Discontinued Medications Lorazepam (Lorazepam 0.5 Mg Tablet) 1 mg PO NOW ONE Stop: 07/20/21 00:15 Reevaluation(s) Reevaluation #1: patient continues to become more clear and alert over the course of the visit. At time of his discharge she is able to demonstrate capacity, he is speaking clearly without slurring words and able to ambulate a steady gait. He states that rather than waiting overnight to see social work he would prefer to leave now. I spent a significant amount of time at the bedside with him to discuss this and despite my efforts he was demanding to leave. As stated, he was able to demonstrate capacity for this decision and understands that he may return immediately if he changes his mind. He understands that he will not have access to his withdrawal taper until tomorrow and then if he starts having withdrawal type symptoms that he should return immediately. I asked him if I could call a family member and he refused, but stated his brother was on his way from [place] to pick him up. He knows he may not drive his vehicle and assured myself and nursing that he wouldn't. Vital Signs Vital signs: Vital Signs - 8 hr 07/19/21 21:31 07/19/21 21:34 07/19/21 22:00 Pulse Rate 101 H 102 H 96 H Respiratory Rate 13 15 14 Blood Pressure 129/81 Pulse Oximetry 96 95 07/19/21 22:30 07/19/21 23:00 07/19/21 23:30 Pulse Rate 101 H 101 H 100 H Respiratory Rate 17 12 12 Blood Pressure Pulse Oximetry 95 95 07/20/21 00:00 Pulse Rate 99 H Respiratory Rate 11 L Blood Pressure Pulse Oximetry 97 MDM - Seizure Lab Data Result diagrams: 07/19/21 21:19 07/19/21 21:19 Labs: Lab Results 07/19/21 07/19/21 Range/Units 21:19 21:19 WBC 4.9 (4.5-11.0) X10^3/uL RBC 3.54 L (4.5-5.9) X10^6/uL Hgb 11.7 L (13.5-17.5) g/dL Hct 34.7 L (41-53) % MCV 97.9 (80-100) fL MCH 32.9 (26-34) PG MCHC 33.6 (30-36) % RDW 14.5 (11.6-14.8) % Plt Count 225 (150-400) X10^3/uL Neut % (Auto) 47.5 L (50-75) % Lymph % (Auto) 37.9 (25-40) % [place] % (Auto) 12.9 (3-14) % Eos % (Auto) 0.5 L (2-4) % Baso % (Auto) 1.2 (0-2) % Neut # (Auto) 2300 (9368-3700) /uL Lymph # (Auto) 1800 (8070-2026) /uL [place] # (Auto) 600 (0-900) /uL Eos # (Auto) 0 (0-450) /uL Baso # (Auto) 100 (0-100) /uL Sodium 144 D (137-145) mmol/L Potassium 3.4 (3.4-5.1) mmol/L Chloride 100 (98-107) mmol/L Carbon Dioxide 27 (22-32) mmol/L BUN 6 L (9-20) mg/dL Creatinine 0.47 L (0.66-1.25) mg/dL Estimated GFR > 60.0 (>60) mL/min BUN/Creatinine Ratio 12.8 (6-22) Glucose 110 H (70-100) mg/dL Calcium 9.0 (8.4-10.2) mg/dL Magnesium 1.7 (1.6-2.3) mg/dL Total Bilirubin 0.6 (0.2-1.3) mg/dL Conjugated Bilirubin 0.0 (0.0-0.3) md/dL Unconjugated Bilirubin 0.1 (0.0-1.1) mg/dL AST 544 H (17-59) IU/L ALT 249 H (<50) IU/L Alkaline Phosphatase 152 H (38-126) U/L Total Protein 8.1 (6.3-8.2) g/dL Albumin 4.8 (3.5-5.0) g/dL Globulin 3.3 (1.7-4.1) g/dL Albumin/Globulin Ratio 1.5 (1.0-2.8) Lipase 341 H (23-300) U/L Ethyl Alcohol 518 H* ( - 10) mg/dL Discharge Plan Departure Patient Disposition: Home Clinical Impression: Alcoholic intoxication Instructions: Alcohol Use Disorder Activity Restrictions/Additional Instructions: *You have been diagnosed with [ Alcohol abuse, thankfully you have no signs of withdrawal.] *What to do: *Please continue to take your regular medications as directed. [ ] New medication prescriptions sent to your pharmacy: [ ] [x ] New medication written as a paper prescription [ ] No new medications given *Please return immediately should you change your mind about getting help from us. *If you do not have a primary care provider please contact the [facility] Resource line at [phone]. They will ask some questions about your medical history and help get you set up with a doctor in the community. *Return to Emergency Department if you should have any new, worsening or concerning symptoms, such as [fever greater than 101 F, shaking chills, worsening pain, persistent vomiting or other bothersome symptoms] Prescriptions: New lorazepam [Ativan] 1 mg tablet See Rx Instructions .ROUTE .COMPLEX PRN (Reason: alcohol withdrawal) Qty: 19 RF: 0 No Action lorazepam 1 mg tablet 1 mg PO Q4-6H PRN (Reason: alcohol withdrawal) Qty: 25 RF: 0 metoprolol succinate 25 mg tablet extended release 24 hr 25 mg PO DAILY Qty: 30 RF: 2 buspirone 5 mg tablet 5 mg PO BID Qty: 60 RF: 2 Referrals: [facility] [Outside] [facility] [Outside] Alcohol [facility] [Outside] [facility] [Outside] Alcohol [facility] [Outside] Aman Wright, [Primary Care Provider] -
--- NOTE | 2021-07-19 21:24 | PC.NURSE ---
Patient reports that he had a seizure at 0145, drank 5th of vodka at 1400. Sustained bilateral black eyes and swollen upper lip. At time of assessment is slurring his words and swaying in the bed.
[2021-07-19 21:31] LABS: Add Manual Diff / Slide Review NO; Basophils Absolute Auto 100 /uL (0-100); Basophils Percent Auto 1.2 % (0-2); Eosinophils Absolute Auto 0 /uL (0-450); Eosinophils Percent Auto 0.5 % (2-4); Hematocrit 34.7 % (41-53); Hemoglobin 11.7 g/dL (13.5-17.5); Lymphocytes Absolute Auto 1800 /uL (1100-4500); Lymphocytes Percent Auto 37.9 % (25-40); Mean Corpuscular HGB Conc 33.6 % (30-36); Mean Corpuscular Hemoglobin 32.9 PG (26-34); Mean Corpuscular Volume 97.9 fL (80-100); Monocytes Absolute Auto 600 /uL (0-900); Monocytes Percent Auto 12.9 % (3-14); Neutrophils Absolute Auto 2300 /uL (1500-7000); Neutrophils Percent Auto 47.5 % (50-75); Platelet Count 225 X10^3/uL (150-400); Red Blood Cell Count 3.54 X10^6/uL (4.5-5.9); Red Cell Distribution Width 14.5 % (11.6-14.8); White Blood Cell Count 4.9 X10^3/uL (4.5-11.0)
[2021-07-19 21:38] LABS: Alanine Aminotransferase 249 IU/L (<50); Albumin 4.8 g/dL (3.5-5.0); Albumin Globulin Ratio 1.5 (1.0-2.8); Alkaline Phosphatase 152 U/L (38-126); Aspartate Aminotransferase 544 IU/L (17-59); BUN Creatinine Ratio 12.8 (6-22); Bilirubin Total 0.6 mg/dL (0.2-1.3); Bilirubin Unconjugated 0.1 mg/dL (0.0-1.1); Blood Urea Nitrogen 6 mg/dL (9-20); Carbon Dioxide 27 mmol/L (22-32); Chloride 100 mmol/L (98-107); Estimated Glomerular Filt Rate > 60.0 mL/min (>60); Globulin 3.3 g/dL (1.7-4.1); Glucose 110 mg/dL (70-100); HEMOLYSIS < 15 (0-50); Lipase 341 U/L (23-300); Magnesium 1.7 mg/dL (1.6-2.3); Potassium 3.4 mmol/L (3.4-5.1); Sodium 144 mmol/L (137-145); Total Protein 8.1 g/dL (6.3-8.2)
[2021-07-19 21:48] LABS: Ethanol (ETOH) 518 mg/dL
[2021-07-20] VITALS: PULSE 99; RESP 11; O2SAT 97
--- NOTE | 2021-07-20 00:31 | PC.NURSE ---
Pt up out of bed, walking in the villatoro, When told to go back to his room, states he wants to leave and going to remove IV. Provider in room to talk into staying. Pt states brother is on his way from [place] to pick him up but refuses to wait to in department for brother. Provider then states he could not have the Ativan. Provider gave discharge instructions.
== END 2021-07-20 00:54 | disposition home or self-care (01) ==
PROVIDERS: Emergency Provider Emergency Medicine; PCP Family Medicine
DX: F10.129 Alcohol abuse with intoxication, unspecified (principal); Y90.8 Blood alcohol level of 240 mg/100 ml or more; R11.0 Nausea; R56.9 Unspecified convulsions
CPT/HCPCS: 36415; 80053; 80076; 80320; 83690; 83735; 85025; 99283

== ENCOUNTER 2021-09-23 07:26 | Emergency (ER) | payer OTHER, MEDICAID, SELFPAY ==
[2021-07-09 05:48] VITALS: BMI 23.7
[2021-09-23] VITALS (11 sets, daily range): BP systolic 120–161; BP diastolic 80–95; PULSE 70–101; RESP 16–18; TEMP 37.6; O2SAT 94–99; BMI 23.7
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
[2021-09-23 08:16] LABS: Add Manual Diff / Slide Review NO; Basophils Absolute Auto 100 /uL (0-100); Basophils Percent Auto 1.4 % (0-2); Eosinophils Absolute Auto 100 /uL (0-450); Hematocrit 35.7 % (41-53); Lymphocytes Absolute Auto 1600 /uL (1100-4500); Lymphocytes Percent Auto 30.9 % (25-40); Mean Corpuscular HGB Conc 33.5 % (30-36); Mean Corpuscular Hemoglobin 32.9 PG (26-34); Mean Corpuscular Volume 98.2 fL (80-100); Monocytes Absolute Auto 300 /uL (0-900); Monocytes Percent Auto 6.5 % (3-14); Neutrophils Absolute Auto 3100 /uL (1500-7000); Neutrophils Percent Auto 60.2 % (50-75); Platelet Count 259 X10^3/uL (150-400); Red Blood Cell Count 3.63 X10^6/uL (4.5-5.9); White Blood Cell Count 5.2 X10^3/uL (4.5-11.0)
[2021-09-23 08:26] LABS: Alanine Aminotransferase 97 IU/L (<50); Albumin 4.6 g/dL (3.5-5.0); Albumin Globulin Ratio 1.5 (1.0-2.8); Alkaline Phosphatase 123 U/L (38-126); Aspartate Aminotransferase 187 IU/L (17-59); BUN Creatinine Ratio 20.4 (6-22); Bilirubin Total 0.4 mg/dL (0.2-1.3); Bilirubin Unconjugated 0.2 mg/dL (0.0-1.1); Blood Urea Nitrogen 10 mg/dL (9-20); Calcium 8.8 mg/dL (8.4-10.2); Carbon Dioxide 23 mmol/L (22-32); Chloride 104 mmol/L (98-107); Estimated Glomerular Filt Rate > 60.0 mL/min (>60); Ethanol (ETOH) 155 mg/dL; Glucose 84 mg/dL (70-100); HEMOLYSIS < 15 (0-50); Lipase 92 U/L (23-300); Magnesium 1.7 mg/dL (1.6-2.3); Potassium 3.7 mmol/L (3.4-5.1); Sodium 142 mmol/L (137-145); Total Protein 7.6 g/dL (6.3-8.2)
[2021-09-23] MEDS: LOSARTAN 50 MG TABLET PO (08:41)
[2021-09-23] MEDS: SODIUM CHLORIDE 0.9% 1,000 ML 1000 ML IV (08:41)
[2021-09-23] MEDS: LORazepam 2 MG/ML INJ 1 MG IV ×2 (08:46→10:02)
[2021-09-23] MEDS: chlordiazePOXIDE 25 MG CAPSULE PO (09:31)
--- NOTE | 2021-09-23 14:35 | PC.NURSE ---
[facility], [facility], [facility] triage center, [facility] and none of the facilities had a bed available for a male with alcohol withdrawl.
[2021-09-23] MEDS: PHENobarbital 65 MG/ML VIAL 260 MG IV (14:44)
[2021-09-23] MEDS: ACETAMINOPHEN 325 MG TABLET 650 MG PO (14:47)
--- NOTE | 2021-09-28 14:14 | PC.NURSE ---
09/23/21 1000 late entry, infused 1 liter NS iv.
== END 2021-09-23 15:00 | disposition home or self-care (01) ==
PROVIDERS: Emergency Provider Emergency Medicine; PCP Family Medicine
DX: F10.239 Alcohol dependence with withdrawal, unspecified (principal); F10.229 Alcohol dependence with intoxication, unspecified; Y90.6 Blood alcohol level of 120-199 mg/100 ml
CPT/HCPCS: 36415; 80053; 80076; 80320; 83690; 83735; 85025; 96361; 96374; 96375; 96376; 99284; J2060; J2560

== ENCOUNTER 2022-02-16 04:04 | Emergency (ER) | payer OTHER, MEDICAID, SELFPAY ==
[2021-07-09 05:48] VITALS: BMI 23.7
[2022-02-16] VITALS (19 sets, daily range): BP systolic 115–139; BP diastolic 62–102; PULSE 102–119; RESP 10–32; TEMP 36.8; O2SAT 92–98; BMI 23.7
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
[2022-02-16] MEDS: chlordiazePOXIDE 25 MG CAPSULE PO (04:46)
[2022-02-16] MEDS: SODIUM CHLORIDE 0.9% 1,000 ML 1000 ML IV (04:46)
[2022-02-16 05:02] LABS: Ethanol (ETOH) 289 mg/dL; Lipase 91 U/L (23-300)
[2022-02-16 05:05] LABS: Alanine Aminotransferase 44 IU/L (<50); Albumin 4.7 g/dL (3.5-5.0); Albumin Globulin Ratio 1.2 (1.0-2.8); Alkaline Phosphatase 92 U/L (38-126); Aspartate Aminotransferase 48 IU/L (17-59); BUN Creatinine Ratio 24.1 (6-22); Bilirubin Total 0.3 mg/dL (0.2-1.3); Blood Urea Nitrogen 13 mg/dL (9-20); Calcium 8.6 mg/dL (8.4-10.2); Carbon Dioxide 24 mmol/L (22-32); Chloride 105 mmol/L (98-107); Estimated Glomerular Filt Rate > 60 mL/min (>60); Globulin 3.9 g/dL (1.7-4.1); Glucose 109 mg/dL (70-100); HEMOLYSIS < 15 (0-50); Potassium 4.1 mmol/L (3.4-5.1); Sodium 144 mmol/L (137-145); Total Protein 8.6 g/dL (6.3-8.2)
[2022-02-16 05:33] LABS: Add Manual Diff / Slide Review NO; Basophils Absolute Auto 100 /uL (0-100); Basophils Percent Auto 0.8 % (0-2); Eosinophils Absolute Auto 0 /uL (0-450); Eosinophils Percent Auto 0.1 % (2-4); Hematocrit 38.9 % (41-53); Lymphocytes Absolute Auto 3200 /uL (1100-4500); Lymphocytes Percent Auto 40.8 % (25-40); Mean Corpuscular HGB Conc 33.5 % (30-36); Mean Corpuscular Volume 92.5 fL (80-100); Monocytes Absolute Auto 500 /uL (0-900); Monocytes Percent Auto 6.6 % (3-14); Neutrophils Absolute Auto 4100 /uL (1500-7000); Neutrophils Percent Auto 51.7 % (50-75); Platelet Count 339 X10^3/uL (150-400); Red Cell Distribution Width 15.2 % (11.6-14.8); White Blood Cell Count 7.9 X10^3/uL (4.5-11.0)
[2022-02-16 08:25] LABS: COVID19 -Nasal RAPID Negative (Negative)
--- NOTE | 2022-02-16 09:16 | PC.NURSE ---
patient tried to eat his breakfast and vomited.
== END 2022-02-16 11:10 | disposition home or self-care (01) ==
PROVIDERS: Emergency Medicine; Emergency Provider Emergency Medicine; PCP Family Medicine
DX: F10.139 Alcohol abuse with withdrawal, unspecified (principal); F17.210 Nicotine dependence, cigarettes, uncomplicated; Y90.8 Blood alcohol level of 240 mg/100 ml or more; Z20.822 Contact with and (suspected) exposure to COVID-19
CPT/HCPCS: 36415; 80053; 80320; 83690; 85025; 87635; 96360; 96361; 99283; 99284; C9803

== ENCOUNTER 2022-02-22 22:25 | Emergency (ER) | payer OTHER, MEDICAID, SELFPAY ==
[2021-07-09 05:48] VITALS: BMI 23.7
[2022-02-22 22:29] VITALS: BP 143/91; PULSE 125; O2SAT 98
[2022-02-22 22:30] VITALS: BP 153/97; PULSE 125; O2SAT 98
[2022-02-22 22:41] VITALS: BP 153/97; PULSE 125; RESP 18; TEMP 36.8; O2SAT 97; BMI 23.7
[2022-02-22 23:00] VITALS: BP 135/79; PULSE 106; RESP 14; O2SAT 98
--- NOTE | 2022-02-22 23:23 | ED.ALCOHOL ---
HPI - Alcohol <Phoenix Ortiz DO - Last Filed: 02/24/22 02:18> General Chief Complaint: Toxicology Problem Stated Complaint: ETOH Withdrawls Time Seen by Provider: 02/22/22 22:26 Source: patient Mode of arrival: EMS History of Present Illness HPI narrative: 31-year-old male with extensive history of alcohol use disorder and benzodiazepine abuse and withdrawal presents by EMS with chief complaint of symptoms consistent with withdrawal. He states that he was most recently in an inpatient facility about 1 week ago and has been on a significant Villegas over the course of the week. He has been drinking at least 1/5 per day and states his last drink was about noon today. He presents with increasing agitation, racing heart, abdominal pain, nausea and diarrhea as well as visual hallucinations. He has had alcohol withdrawal multiple times and has had seizures in the past. He feels like he is too far into the withdrawal to go to a standard detox facility Related Data Home Medications Medication Instructions Recorded Confirmed clonidine HCl 0.1 mg tablet See Rx Instructions .ROUTE .COMPLEX 02/16/22 02/16/22 hydroxyzine HCl 50 mg tablet 50 mg PRN PRN 02/16/22 02/16/22 levetiracetam 1,000 mg tablet 1,000 mg PO BID 02/16/22 02/16/22 losartan 50 mg tablet 50 mg PO DAILY 02/16/22 02/16/22 olanzapine 7.5 mg tablet 7.5 mg PO BID 02/16/22 02/16/22 Allergies Allergy/AdvReac Type Severity Reaction Status Date / Time cephalexin Allergy Verified 02/16/22 04:21 marijuana Allergy Verified 02/16/22 04:21 ssri Allergy Uncoded 02/16/22 04:21 Review of Systems <Phoenix Ortiz DO - Last Filed: 02/24/22 02:18> Review of Systems Narrative: GENERAL: See HP HEENT: Denies sinus pain, ear pain, sore throat, difficulty swallowing, dizziness. RESPIRATORY: Denies dyspnea, cough, wheezing, hemoptysis, sputum. CARDIOVASCULAR: See HPI GASTROINTESTINAL: See HPI : Denies dysuria, frequency, incontinence, hematuria, urinary retention. MUSCULOSKELETAL: denies weakness, joint pain, or bony pain SKIN: Denies rash, skin lesions, or other NEUROLOGIC: See HPI PSYCHIATRIC: No concerning psychosocial issues. 12 point review of systems is negative except for those stated above Patient History <Phoenix Ortiz DO - Last Filed: 02/24/22 02:18> Medical History Alcohol abuse COVID-19 Hypertension Lip laceration Surgical History No history of previous surgery Family History Other First degree relatives alive and well Social History household members: none Smoking Status: Current every day smoker Smoking Status: Current every day smoker tobacco type: cigarettes alcohol intake frequency: 3 or more drinks per day Alcohol type: hard liquor Substance Use Type: does not use Exam <Phoenix Ortiz DO - Last Filed: 02/24/22 02:18> Narrative Exam Narrative: GENERAL: [28 year old patient appears stated age. Well-developed patient, in moderate distress, GCS 15, agitated, anxious HEAD: Atraumatic. Normocephalic. EYES: Pupils equal round and reactive. Extraocular motions intact. No scleral icterus. No injection or drainage. ENT: Nose without bleeding, purulent drainage. Throat without erythema, tonsillar hypertrophy or exudate. Airway patent. NECK: Trachea midline. Non tender CARDIOVASCULAR: Tachycardic but regular rhythm without murmurs, gallops, or rubs. RESPIRATORY: Clear to auscultation. Breath sounds equal bilaterally. No wheezes, rales, or rhonchi. GASTROINTESTINAL: Abdomen soft, non-tender, nondistended. EXTREMITIES: No edema or joint tenderness. Tremors at rest BACK: Nontender without deformity or crepitance. No flank tenderness. NEURO: AOx3. SKIN: No rash or erythema of visible areas Initial Vital Signs Initial Vital Signs: Vital Signs Pulse Rate 125 H 02/22/22 22:29 Blood Pressure 143/91 H 02/22/22 22:29 Pulse Oximetry 98 02/22/22 22:29 <Herman Acosta DO - Last Filed: 02/23/22 11:48> Initial Vital Signs Initial Vital Signs: Vital Signs Pulse Rate 125 H 02/22/22 22:29 Blood Pressure 143/91 H 02/22/22 22:29 Pulse Oximetry 98 02/22/22 22:29 Course <Phoenix Ortiz DO - Last Filed: 02/24/22 02:18> Course Course Narrative: [facility] for Alcohol Withdrawal from [employer] on 02/22/2022 All calculations should be rechecked by clinician prior to use RESULT SUMMARY: 24 points Patients with scores >=0 frequently require medication for withdrawal, and may also require admission to the ICU for observation for seizures or development of delirium tremens, and more frequent medication dosing. INPUTS: Nausea/vomiting ?> 3 = (More severe symptoms) Tremor ?> 4 = Moderate, with patient's arms extended Paroxysmal sweats ?> 2 = (More severe symptoms) Anxiety ?> 4 = Moderately anxious, or guarded, so anxiety is inferred Agitation ?> 4 = Moderately fidgety and restless Tactile disturbances ?> 1 = Very mild itching, pin and needles, burning, or numbness Auditory disturbances ?> 2 = Mild harshness or ability to frighten Visual disturbances ?> 2 = Mild sensitivity Headache/fullness in head ?> 2 = Mild Orientation/clouding of sensorium ?> 0 = Oriented, can do serial additions Orders Ordered: Discontinued Medications Chlordiazepoxide HCl (Chlordiazepoxide 25 Mg Capsule) 25 mg PO NOW ONE Stop: 02/23/22 09:21 Last Admin: 02/23/22 09:24 Dose: 25 mg Documented by: RESHMA Sodium Chloride (Normal Saline 0.9%) 1,000 mls @ 1,000 mls/hr IV BOLUS ONE Stop: 02/23/22 00:02 Last Infusion: 02/23/22 04:55 Dose: 0 mls/hr Documented by: Admin: 02/22/22 23:46 Dose: 1,000 mls/hr Documented by: MARYELLEN Thiamine HCl 100 mg/ Dextrose 51 mls @ 204 mls/hr IV NOW ONE Stop: 02/22/22 23:04 Last Admin: 02/22/22 23:35 Dose: Not Given Documented by: PRIMO Thiamine HCl 200 mg/ Sodium (Chloride) 102 mls @ 408 mls/hr IV NOW ONE Stop: 02/22/22 23:36 Last Infusion: 02/23/22 00:50 Dose: 0 mls/hr Documented by: Admin: 02/22/22 23:46 Dose: 408 mls/hr Documented by: MARYELLEN Magnesium Sulfate (Magnesium Sulfate) 2 gm in 50 mls @ 25 mls/hr IV NOW ONE Stop: 02/23/22 01:53 Last Infusion: 02/23/22 04:56 Dose: 0 mls/hr Documented by: MARYELLEN Cosigned by: HGNEHEMIAHN Admin: 02/23/22 00:44 Dose: 25 mls/hr Documented by: MARYELLEN Cosigned by: MANUEL Sodium Chloride (Normal Saline 0.9%) 1,000 mls @ 1,000 mls/hr IV BOLUS ONE Stop: 02/23/22 03:16 Last Infusion: 02/23/22 04:59 Dose: 0 mls/hr Documented by: Infusion: 02/23/22 04:59 Dose: 0 mls/hr Documented by: Infusion: 02/23/22 03:21 Dose: 0 mls/hr Documented by: Infusion: 02/23/22 03:19 Dose: 0 mls/hr Documented by: Admin: 02/23/22 03:18 Dose: 1,000 mls/hr Documented by: MARYELLEN Phenobarbital (Phenobarbital 65 Mg/Ml Vial) 260 mg IV NOW ONE Stop: 02/22/22 23:04 Last Admin: 02/22/22 23:45 Dose: 260 mg Documented by: MARYELLEN Phenobarbital (Phenobarbital 65 Mg/Ml Vial) 130 mg IV NOW ONE Stop: 02/23/22 02:18 Last Admin: 02/23/22 02:39 Dose: 130 mg Documented by: MARYELLEN Reevaluation(s) Reevaluation #1: improvement after Phenobarb 260, still a bit tachy and anxious Reevaluation #2: continues to improve after second dose of Phenobarb. HR in upper 90s. [facility]OR [place] plan requests GANTRY CRANE OPERATOR consultation for visits to the ED for [facility]. Patient understands this and is happy to await the consultation later today Vital Signs Vital signs: Vital Signs - 8 hr 02/23/22 04:00 02/23/22 04:30 02/23/22 05:00 Pulse Rate 93 H 96 H 92 H Respiratory Rate Blood Pressure 123/73 129/78 134/79 Pulse Oximetry 97 93 95 02/23/22 06:33 02/23/22 07:00 02/23/22 07:30 Pulse Rate 102 H 93 H 101 H Respiratory Rate 24 70 H 17 Blood Pressure 138/83 121/81 142/89 H Pulse Oximetry 96 97 97 02/23/22 08:00 02/23/22 08:30 02/23/22 09:00 Pulse Rate 91 H 100 H 95 H Respiratory Rate 15 Blood Pressure 134/80 136/84 147/91 H Pulse Oximetry 97 96 97 02/23/22 09:30 02/23/22 10:00 Pulse Rate 97 H 91 H Respiratory Rate 14 94 H Blood Pressure 151/85 H 144/85 H Pulse Oximetry 97 97 <Herman Acosta DO - Last Filed: 02/23/22 11:48> Orders Ordered: Discontinued Medications Chlordiazepoxide HCl (Chlordiazepoxide 25 Mg Capsule) 25 mg PO NOW ONE Stop: 02/23/22 09:21 Last Admin: 02/23/22 09:24 Dose: 25 mg Documented by: RESHMA Sodium Chloride (Normal Saline 0.9%) 1,000 mls @ 1,000 mls/hr IV BOLUS ONE Stop: 02/23/22 00:02 Last Infusion: 02/23/22 04:55 Dose: 0 mls/hr Documented by: Admin: 02/22/22 23:46 Dose: 1,000 mls/hr Documented by: MARYELLEN Thiamine HCl 100 mg/ Dextrose 51 mls @ 204 mls/hr IV NOW ONE Stop: 02/22/22 23:04 Last Admin: 02/22/22 23:35 Dose: Not Given Documented by: PRIMO Thiamine HCl 200 mg/ Sodium (Chloride) 102 mls @ 408 mls/hr IV NOW ONE Stop: 02/22/22 23:36 Last Infusion: 02/23/22 00:50 Dose: 0 mls/hr Documented by: Admin: 02/22/22 23:46 Dose: 408 mls/hr Documented by: MARYELLEN Magnesium Sulfate (Magnesium Sulfate) 2 gm in 50 mls @ 25 mls/hr IV NOW ONE Stop: 02/23/22 01:53 Last Infusion: 02/23/22 04:56 Dose: 0 mls/hr Documented by: MARYELLEN Cosigned by: PRIMO Admin: 02/23/22 00:44 Dose: 25 mls/hr Documented by: MARYELLEN Cosigned by: RLAZANI Sodium Chloride (Normal Saline 0.9%) 1,000 mls @ 1,000 mls/hr IV BOLUS ONE Stop: 02/23/22 03:16 Last Infusion: 02/23/22 04:59 Dose: 0 mls/hr Documented by: Infusion: 02/23/22 04:59 Dose: 0 mls/hr Documented by: Infusion: 02/23/22 03:21 Dose: 0 mls/hr Documented by: Infusion: 02/23/22 03:19 Dose: 0 mls/hr Documented by: Admin: 02/23/22 03:18 Dose: 1,000 mls/hr Documented by: MARYELLEN Phenobarbital (Phenobarbital 65 Mg/Ml Vial) 260 mg IV NOW ONE Stop: 02/22/22 23:04 Last Admin: 02/22/22 23:45 Dose: 260 mg Documented by: MARYELLEN Phenobarbital (Phenobarbital 65 Mg/Ml Vial) 130 mg IV NOW ONE Stop: 02/23/22 02:18 Last Admin: 02/23/22 02:39 Dose: 130 mg Documented by: MARYELLEN Vital Signs Vital signs: Vital Signs - 8 hr 02/23/22 04:00 02/23/22 04:30 02/23/22 05:00 Pulse Rate 93 H 96 H 92 H Respiratory Rate Blood Pressure 123/73 129/78 134/79 Pulse Oximetry 97 93 95 02/23/22 06:33 02/23/22 07:00 02/23/22 07:30 Pulse Rate 102 H 93 H 101 H Respiratory Rate 24 70 H 17 Blood Pressure 138/83 121/81 142/89 H Pulse Oximetry 96 97 97 02/23/22 08:00 02/23/22 08:30 02/23/22 09:00 Pulse Rate 91 H 100 H 95 H Respiratory Rate 15 Blood Pressure 134/80 136/84 147/91 H Pulse Oximetry 97 96 97 02/23/22 09:30 02/23/22 10:00 Pulse Rate 97 H 91 H Respiratory Rate 14 94 H Blood Pressure 151/85 H 144/85 H Pulse Oximetry 97 97 MDM - Alcohol <Phoenix Ortiz DO - Last Filed: 02/24/22 02:18> Lab Data Result diagrams: 02/22/22 21:20 02/22/22 21:20 Labs: Lab Results 02/22/22 02/22/22 02/23/22 Range/Units 21:20 21:20 05:20 WBC 12.1 H (4.5-11.0) X10^3/uL RBC 3.56 L (4.5-5.9) X10^6/uL Hgb 11.1 L (13.5-17.5) g/dL Hct 32.8 L (41-53) % MCV 92.2 (80-100) fL MCH 31.3 (26-34) PG MCHC 33.9 (30-36) % RDW 15.3 H (11.6-14.8) % Plt Count 192 (150-400) X10^3/uL Neut % (Auto) 78.3 H (50-75) % Lymph % (Auto) 16.2 L (25-40) % Fountain % (Auto) 4.9 (3-14) % Eos % (Auto) 0.3 L (2-4) % Baso % (Auto) 0.3 (0-2) % Neut # (Auto) 9500 H (0456-1347) /uL Lymph # (Auto) 2000 (8776-9007) /uL Fountain # (Auto) 600 (0-900) /uL Eos # (Auto) 0 (0-450) /uL Baso # (Auto) 0 (0-100) /uL Sodium 136 L (137-145) mmol/L Potassium 3.5 (3.4-5.1) mmol/L Chloride 101 (98-107) mmol/L Carbon Dioxide 23 (22-32) mmol/L BUN 11 (9-20) mg/dL Creatinine 0.54 L (0.66-1.25) mg/dL Estimated GFR > 60 (>60) mL/min BUN/Creatinine Ratio 20.4 (6-22) Glucose 82 (70-100) mg/dL Calcium 8.7 (8.4-10.2) mg/dL Magnesium 1.3 L (1.6-2.3) mg/dL Total Bilirubin 0.6 (0.2-1.3) mg/dL AST 61 H (17-59) IU/L ALT 31 (<50) IU/L Alkaline Phosphatase 76 (38-126) U/L Total Protein 7.6 (6.3-8.2) g/dL Albumin 4.3 (3.5-5.0) g/dL Globulin 3.3 (1.7-4.1) g/dL Albumin/Globulin Ratio 1.3 (1.0-2.8) Lipase 75 (23-300) U/L U Opiates 300ng/mL cut Negative (Negative) Ur Oxycodone Screen Negative (Negative) Urine Methadone Screen Negative (Negative) Ur Barbiturates Screen Positive H (Negative) U Tricyclic Antidepress Negative (Negative) Ur Phencyclidine Scrn Negative (Negative) Ur Amphetamines Screen Negative (Negative) U Methamphetamines Scrn Negative (Negative) Ur MDMA Scrn (Ecstasy) Negative (Negative) U Benzodiazepines Scrn Positive H (Negative) Urine Cocaine Screen Negative (Negative) U Marijuana (THC) Screen Negative (Negative) Ethyl Alcohol 79 H ( - 10) mg/dL MDM Narrative Medical decision making narrative: 31M with extensive history of substance abuse including alcohol and benzos presents with feeling of alcohol withdrawal and elevated CIWA. He is treated with multiple doses of phenobarb and given IVF. Patient would prefer to not do another trip to rehab, but is willing to wait for GANTRY CRANE OPERATOR to comply with [employer] Topography Technician. Consult to GANTRY CRANE OPERATOR has been placed and patient signed out to Dr. Acosta for final disposition. <Herman Acosta, - Last Filed: 02/23/22 11:48> Lab Data Labs: Lab Results 02/22/22 02/22/22 02/23/22 Range/Units 21:20 21:20 05:20 WBC 12.1 H (4.5-11.0) X10^3/uL RBC 3.56 L (4.5-5.9) X10^6/uL Hgb 11.1 L (13.5-17.5) g/dL Hct 32.8 L (41-53) % MCV 92.2 (80-100) fL MCH 31.3 (26-34) PG MCHC 33.9 (30-36) % RDW 15.3 H (11.6-14.8) % Plt Count 192 (150-400) X10^3/uL Neut % (Auto) 78.3 H (50-75) % Lymph % (Auto) 16.2 L (25-40) % Fountain % (Auto) 4.9 (3-14) % Eos % (Auto) 0.3 L (2-4) % Baso % (Auto) 0.3 (0-2) % Neut # (Auto) 9500 H (0040-8477) /uL Lymph # (Auto) 2000 (6207-0287) /uL Fountain # (Auto) 600 (0-900) /uL Eos # (Auto) 0 (0-450) /uL Baso # (Auto) 0 (0-100) /uL Sodium 136 L (137-145) mmol/L Potassium 3.5 (3.4-5.1) mmol/L Chloride 101 (98-107) mmol/L Carbon Dioxide 23 (22-32) mmol/L BUN 11 (9-20) mg/dL Creatinine 0.54 L (0.66-1.25) mg/dL Estimated GFR > 60 (>60) mL/min BUN/Creatinine Ratio 20.4 (6-22) Glucose 82 (70-100) mg/dL Calcium 8.7 (8.4-10.2) mg/dL Magnesium 1.3 L (1.6-2.3) mg/dL Total Bilirubin 0.6 (0.2-1.3) mg/dL AST 61 H (17-59) IU/L ALT 31 (<50) IU/L Alkaline Phosphatase 76 (38-126) U/L Total Protein 7.6 (6.3-8.2) g/dL Albumin 4.3 (3.5-5.0) g/dL Globulin 3.3 (1.7-4.1) g/dL Albumin/Globulin Ratio 1.3 (1.0-2.8) Lipase 75 (23-300) U/L U Opiates 300ng/mL cut Negative (Negative) Ur Oxycodone Screen Negative (Negative) Urine Methadone Screen Negative (Negative) Ur Barbiturates Screen Positive H (Negative) U Tricyclic Antidepress Negative (Negative) Ur Phencyclidine Scrn Negative (Negative) Ur Amphetamines Screen Negative (Negative) U Methamphetamines Scrn Negative (Negative) Ur MDMA Scrn (Ecstasy) Negative (Negative) U Benzodiazepines Scrn Positive H (Negative) Urine Cocaine Screen Negative (Negative) U Marijuana (THC) Screen Negative (Negative) Ethyl Alcohol 79 H ( - 10) mg/dL [facility] Narrative Medical decision making narrative: 31M with extensive history of substance abuse including alcohol and benzos presents with feeling of alcohol withdrawal and elevated CIWA. He is treated with multiple doses of phenobarb and given IVF. Patient would prefer to not do another trip to rehab, but is willing to wait for GANTRY CRANE OPERATOR to comply with ALFONSO Topography Technician. Consult to GANTRY CRANE OPERATOR has been placed and patient signed out to Dr. Acosta for final disposition. Dr acosta: Received turned over. Review patient's history and physical exam. Alcohol level 79 when he arrived. He has been here in the emergency department for a little over 12 hours. Has received phenobarbital. Has been evaluated by social work. Unfortunately the patient does have a history with local detox facilities and he is either not welcome at these facilities or there is no bed availability. He was seen by social work who attempted other facilities in the local area and there was still no bed availability. Patient is clinically sober. Is tolerating oral intake. Is ambulating. Will discharge home to follow-up with primary provider. Discharge Plan Departure Patient Disposition: Home Clinical Impression: Alcohol withdrawal Instructions: DI for Alcohol Use Disorder Activity Restrictions/Additional Instructions: Recommend no driving for the next 24 hours and in the future if you drink alcohol. Sure to increase your fluid intake. I do recommend that you contact your primary doctor to help you with establishing outpatient rehab for your alcohol use. Return to the emergency department for any new symptoms. Prescriptions: No Action losartan 50 mg tablet 50 mg PO DAILY 0RF clonidine HCl 0.1 mg tablet See Rx Instructions .ROUTE .COMPLEX 0RF Rx Instructions: 0.1 mg orally hydroxyzine HCl 50 mg tablet 50 mg PRN PRN (Reason: Anxiety) 0RF Label Comments: take 1 tablet by mouth twice a day olanzapine 7.5 mg tablet 7.5 mg PO BID 0RF levetiracetam 1,000 mg tablet 1,000 mg PO BID 0RF Referrals: Aman Wright, DO [Primary Care Provider] - Stand Alone Forms: Naloxone Standing Order PATRIC
[2022-02-22 23:30] VITALS: BP 123/72; PULSE 104; RESP 19; O2SAT 96
[2022-02-22 23:36] LABS: Add Manual Diff / Slide Review NO; Basophils Absolute Auto 0 /uL (0-100); Basophils Percent Auto 0.3 % (0-2); Eosinophils Absolute Auto 0 /uL (0-450); Eosinophils Percent Auto 0.3 % (2-4); Hematocrit 32.8 % (41-53); Hemoglobin 11.1 g/dL (13.5-17.5); Lymphocytes Absolute Auto 2000 /uL (1100-4500); Lymphocytes Percent Auto 16.2 % (25-40); Mean Corpuscular HGB Conc 33.9 % (30-36); Mean Corpuscular Hemoglobin 31.3 PG (26-34); Mean Corpuscular Volume 92.2 fL (80-100); Monocytes Absolute Auto 600 /uL (0-900); Monocytes Percent Auto 4.9 % (3-14); Neutrophils Absolute Auto 9500 /uL (1500-7000); Neutrophils Percent Auto 78.3 % (50-75); Platelet Count 192 X10^3/uL (150-400); Red Blood Cell Count 3.56 X10^6/uL (4.5-5.9); Red Cell Distribution Width 15.3 % (11.6-14.8); White Blood Cell Count 12.1 X10^3/uL (4.5-11.0)
[2022-02-22 23:44] LABS: Alanine Aminotransferase 31 IU/L (<50); Albumin 4.3 g/dL (3.5-5.0); Albumin Globulin Ratio 1.3 (1.0-2.8); Alkaline Phosphatase 76 U/L (38-126); Aspartate Aminotransferase 61 IU/L (17-59); BUN Creatinine Ratio 20.4 (6-22); Bilirubin Total 0.6 mg/dL (0.2-1.3); Blood Urea Nitrogen 11 mg/dL (9-20); Calcium 8.7 mg/dL (8.4-10.2); Carbon Dioxide 23 mmol/L (22-32); Chloride 101 mmol/L (98-107); Estimated Glomerular Filt Rate > 60 mL/min (>60); Ethanol (ETOH) 79 mg/dL; Globulin 3.3 g/dL (1.7-4.1); Glucose 82 mg/dL (70-100); HEMOLYSIS < 15 (0-50); Lipase 75 U/L (23-300); Magnesium 1.3 mg/dL (1.6-2.3); Potassium 3.5 mmol/L (3.4-5.1); Sodium 136 mmol/L (137-145); Total Protein 7.6 g/dL (6.3-8.2)
[2022-02-22] MEDS: PHENobarbital 65 MG/ML VIAL 260 MG IV (23:45)
[2022-02-22] MEDS: SODIUM CHLORIDE 0.9% 1,000 ML 1000 ML IV (23:46)
[2022-02-22] MEDS: THIAMINE 200 MG in SODIUM CHLORIDE 0.9% 100 ML 408 ML IV (23:46)
[2022-02-23] VITALS (24 sets, daily range): BP systolic 116–159; BP diastolic 64–103; PULSE 91–121; RESP 14–94; TEMP 36.8; O2SAT 93–99
[2022-02-23] MEDS: MAGNESIUM SULFATE 2 GM/50 ML PIGGYBACK IV (00:44)
[2022-02-23] MEDS: PHENobarbital 65 MG/ML VIAL 130 MG IV (02:39)
[2022-02-23] MEDS: SODIUM CHLORIDE 0.9% 1,000 ML 1000 ML IV (03:18)
[2022-02-23 06:00] LABS: UR Morphine/Opiate cutoff 300 Negative (Negative); Ur Creatinine Normal (Normal); Ur Specific Gravity Normal (Normal); Urine Amphetamines Negative (Negative); Urine Barbiturates Positive (Negative); Urine Benzodiazepines Positive (Negative); Urine Cocaine Negative (Negative); Urine MDMA Negative (Negative); Urine Methadone Negative (Negative); Urine Methamphetamines Negative (Negative); Urine Oxycodone Negative (Negative); Urine Phencyclidine Negative (Negative); Urine Tetrahydrocannabinol Negative (Negative); Urine Tricyclic Antidepressant Negative (Negative); Urine pH Normal (Normal)
--- NOTE | 2022-02-23 08:57 | CM.SWNOTE ---
SHAREHOLDER Note This SHAREHOLDER requested to assist in assessment of need for this 31 yo male, presents for the second time this week with complaint of alcohol w/d. Recently discharged from inpatient [facility] facility and has relapsed. Patient seeking detox Met w/patient to introduce role. Patient calm, pleasant and cooperative, states the withdrawals are getting bad Patient endorses last drink was yesterday afternoon and presented to the ED for alcohol withdrawal. Patient's goal today is to either 1. get into detox 2. go home and begin efforts to move to [place] Then learned that patient is no longer welcome at the following detox centers: [facility] [place], and [facility]. Patient with limited options, so placed call to [facility], [place] P# [phone]. No beds available for detox today Updated ED RN and Dr Acosta with above. Patient will be discharged home w/continuation of outpatient f/u. Patient tells this SHAREHOLDER that he has supports in place to remain sober, including sober girlfriend, however needs to get off [facility] to be successful in sobriety GABRIELA Carter
[2022-02-23] MEDS: chlordiazePOXIDE 25 MG CAPSULE PO (09:24)
== END 2022-02-23 11:59 | disposition home or self-care (01) ==
PROVIDERS: Emergency Medicine; Emergency Provider Emergency Medicine; PCP Family Medicine
DX: F10.139 Alcohol abuse with withdrawal, unspecified (principal); Y90.3 Blood alcohol level of 60-79 mg/100 ml
CPT/HCPCS: 80053; 80305; 80320; 83690; 83735; 85025; 96365; 96366; 96367; 96375; 96376; 99284; J2560; J3475

== ENCOUNTER 2022-02-28 21:50 | Emergency (ER) | payer OTHER, MEDICAID, SELFPAY ==
[2021-07-09 05:48] VITALS: BMI 23.7
[2022-02-28 22:00] VITALS: BP 136/94; PULSE 96; RESP 18; TEMP 36.3; O2SAT 98; BMI 53.1
--- NOTE | 2022-02-28 22:16 | ED.MEDCLEAR ---
HPI - Medical Clearance <DO Rigo Lea Last Filed: 03/01/22 18:07> General Chief complaint: Medical Clearance Stated complaint: fear of withdrawl Time Seen by Provider: 02/28/22 21:56 Source: patient Mode of arrival: EMS Limitations: no limitations History of Present Illness HPI Narrative: Patient is a 31-year-old male. I have evaluated him in the emergency department in the past for alcohol-related issues. Has also had withdrawals in the past. His last drink was approximately 1-1/2 hours ago. Last time he was here in the emergency department he was seen by social work. There were no detox beds available so patient was discharged home. In the past he has had specific request about facilities where he does not want to go given prior states that those places. There also facilities that will not take him because of issues he has had while there. He is here stating that he would like to go to detox. He has fears of going through withdrawals once again. Related Information Home Medications Medication Instructions Recorded Confirmed clonidine HCl 0.1 mg tablet See Rx Instructions .ROUTE .COMPLEX 02/16/22 02/16/22 hydroxyzine HCl 50 mg tablet 50 mg PRN PRN 02/16/22 02/16/22 levetiracetam 1,000 mg tablet 1,000 mg PO BID 02/16/22 02/16/22 losartan 50 mg tablet 50 mg PO DAILY 02/16/22 02/16/22 olanzapine 7.5 mg tablet 7.5 mg PO BID 02/16/22 02/16/22 Allergies Allergy/AdvReac Type Severity Reaction Status Date / Time cephalexin Allergy Verified 02/28/22 23:09 marijuana Allergy Verified 02/28/22 23:09 ssri Allergy Uncoded 02/16/22 04:21 Review of Systems <DO Rigo Lea Last Filed: 03/01/22 18:07> Cardiovascular Comments: Denies chest pain Respiratory Comments: Denies shortness of breath Gastrointestinal Comments: Denies nausea vomiting Musculoskeletal Musculoskeletal: Reports system reviewed and no additional complaints, except as documented Integumentary/Breasts Skin/Breast: Reports system reviewed and no additional complaints, except as documented Neurologic Neurologic: Reports system reviewed and no additional complaints, except as documented Hematologic/Lymphatic On Anticoagulants: No Patient History <DO Rigo Lea Last Filed: 03/01/22 18:07> Medical History Alcohol abuse COVID-19 Hypertension Lip laceration Surgical History No history of previous surgery Family History Other First degree relatives alive and well Social History household members: none Smoking Status: Current every day smoker Smoking Status: Current every day smoker tobacco type: cigarettes alcohol intake frequency: 3 or more drinks per day Alcohol type: hard liquor Substance Use Type: does not use Exam <DO Rigo Lea Last Filed: 03/01/22 18:07> Initial Vital Signs Initial Vital Signs: Vital Signs Temperature 97.3 F L 02/28/22 22:00 Pulse Rate 96 H 02/28/22 22:00 Respiratory Rate 18 02/28/22 22:00 Blood Pressure 136/94 H 02/28/22 22:00 Pulse Oximetry 98 02/28/22 22:00 Const General: comfortable, No acute distress and No ill appearing HENMT Head: normal to inspection and normocephalic Resp Effort & Inspection: normal respiratory effort Cardio Rate: regular rate GI Inspection: normal to inspection Skin General: no rashes or lesions noted Neuro General: patient alert, patient awake and moves all extremities Extrem General: normal to inspection Psych Appearance: grossly normal and well kempt <Phoenix Ortiz DO - Last Filed: 03/01/22 13:47> Initial Vital Signs Initial Vital Signs: Vital Signs Temperature 97.3 F L 02/28/22 22:00 Pulse Rate 96 H 02/28/22 22:00 Respiratory Rate 18 02/28/22 22:00 Blood Pressure 136/94 H 02/28/22 22:00 Pulse Oximetry 98 02/28/22 22:00 MDM - Medical Clearance <DO Rigo Lea Last Filed: 03/01/22 18:07> Medical Records Attestation: I reviewed the patient's medical records. Lab Data Attestation: I reviewed the patient's lab results. Result diagrams: 02/28/22 22:22 02/28/22 22:22 Labs: Lab Results 02/28/22 02/28/22 03/01/22 Range/Units 22:22 22:22 07:35 WBC 6.3 (4.5-11.0) X10^3/uL RBC 3.73 L (4.5-5.9) X10^6/uL Hgb 11.9 L (13.5-17.5) g/dL Hct 34.4 L (41-53) % MCV 92.1 (80-100) fL MCH 31.9 (26-34) PG MCHC 34.6 (30-36) % RDW 15.5 H (11.6-14.8) % Plt Count 203 (150-400) X10^3/uL Neut % (Auto) 48.5 L (50-75) % Lymph % (Auto) 42.0 H (25-40) % [place] % (Auto) 8.3 (3-14) % Eos % (Auto) 0.7 L (2-4) % Baso % (Auto) 0.5 (0-2) % Neut # (Auto) 3000 (4875-5809) /uL Lymph # (Auto) 2600 (1072-0461) /uL [place] # (Auto) 500 (0-900) /uL Eos # (Auto) 0 (0-450) /uL Baso # (Auto) 0 (0-100) /uL Sodium 146 H D (137-145) mmol/L Potassium 3.3 L (3.4-5.1) mmol/L Chloride 108 H (98-107) mmol/L Carbon Dioxide 22 (22-32) mmol/L BUN 6 L (9-20) mg/dL Creatinine 0.54 L (0.66-1.25) mg/dL Estimated GFR > 60 (>60) mL/min BUN/Creatinine Ratio 11.1 (6-22) Glucose 100 (70-100) mg/dL Calcium 8.6 (8.4-10.2) mg/dL Total Bilirubin 0.3 (0.2-1.3) mg/dL AST 92 H (17-59) IU/L ALT 64 H (<50) IU/L Alkaline Phosphatase 83 (38-126) U/L Total Protein 7.6 (6.3-8.2) g/dL Albumin 4.2 (3.5-5.0) g/dL Globulin 3.4 (1.7-4.1) g/dL Albumin/Globulin Ratio 1.2 (1.0-2.8) Lipase 75 (23-300) U/L Urine RBC (0-5/HPF) Urine WBC (0-5/HPF) Amorphous Sediment Urine Bacteria (None) Urine Mucus (Negative) Ur Culture Indicated? U Opiates 300ng/mL cut (Negative) Ur Oxycodone Screen (Negative) Urine Methadone Screen (Negative) Ur Barbiturates Screen (Negative) U Tricyclic Antidepress (Negative) Ur Phencyclidine Scrn (Negative) Ur Amphetamines Screen (Negative) U Methamphetamines Scrn (Negative) Ur MDMA Scrn (Ecstasy) (Negative) U Benzodiazepines Scrn (Negative) Urine Cocaine Screen (Negative) U Marijuana (THC) Screen (Negative) Ethyl Alcohol 287 H ( - 10) mg/dL SARS-CoV-2 (PCR) Negative (Negative) 03/01/22 03/01/22 Range/Units 08:04 08:04 WBC (4.5-11.0) X10^3/uL RBC (4.5-5.9) X10^6/uL Hgb (13.5-17.5) g/dL Hct (41-53) % MCV (80-100) fL MCH (26-34) PG MCHC (30-36) % RDW (11.6-14.8) % Plt Count (150-400) X10^3/uL Neut % (Auto) (50-75) % Lymph % (Auto) (25-40) % [place] % (Auto) (3-14) % Eos % (Auto) (2-4) % Baso % (Auto) (0-2) % Neut # (Auto) (2316-9917) /uL Lymph # (Auto) (5722-2584) /uL [place] # (Auto) (0-900) /uL Eos # (Auto) (0-450) /uL Baso # (Auto) (0-100) /uL Sodium (137-145) mmol/L Potassium (3.4-5.1) mmol/L Chloride (98-107) mmol/L Carbon Dioxide (22-32) mmol/L BUN (9-20) mg/dL Creatinine (0.66-1.25) mg/dL Estimated GFR (>60) mL/min BUN/Creatinine Ratio (6-22) Glucose (70-100) mg/dL Calcium (8.4-10.2) mg/dL Total Bilirubin (0.2-1.3) mg/dL AST (17-59) IU/L ALT (<50) IU/L Alkaline Phosphatase (38-126) U/L Total Protein (6.3-8.2) g/dL Albumin (3.5-5.0) g/dL Globulin (1.7-4.1) g/dL Albumin/Globulin Ratio (1.0-2.8) Lipase (23-300) U/L Urine RBC None seen (0-5/HPF) Urine WBC 1-5/hpf (0-5/HPF) Amorphous Sediment 2+ Urine Bacteria Occasional (0-1) (None) Urine Mucus 3+ H D (Negative) Ur Culture Indicated? Culture not indicate U Opiates 300ng/mL cut Negative (Negative) Ur Oxycodone Screen Negative (Negative) Urine Methadone Screen Negative (Negative) Ur Barbiturates Screen Positive H (Negative) U Tricyclic Antidepress Negative (Negative) Ur Phencyclidine Scrn Negative (Negative) Ur Amphetamines Screen Negative (Negative) U Methamphetamines Scrn Negative (Negative) Ur MDMA Scrn (Ecstasy) Negative (Negative) U Benzodiazepines Scrn Positive H (Negative) Urine Cocaine Screen Negative (Negative) U Marijuana (THC) Screen Negative (Negative) Ethyl Alcohol ( - 10) mg/dL SARS-CoV-2 (PCR) (Negative) Urine Dip Bedside Urine Glucose Negative Bedside Urine Bilirubin - Negative Bedside Urine Ketone - Negative Urine Specific [place] 1.015 Bedside Urine Occult Blood - Negative Bedside Urine pH 6 Bedside Urine Protein +/- 15 Bedside Urine Urobilinogen +/- 1mg Bedside Urine Nitrite - Negative Bedside Urine Leukocytes - Negative Esterase MDM Narrative Medical decision making narrative: Was elevated and this is consistent with his reported history. His initial CIWA score was 4. Repeat later on was 0. Patient slept and tolerated oral intake. Upon waking he once again asks for Librium as he states this is what he takes for his withdrawals. A repeat CIWA was 6. Reports shaking but there is no visible shaking noted. He was given thiamine upon arrival. Will give a dose of phenobarbital. Contacted the 3 local facilities. One facility had no beds available. One facility thought that they potentially had a bed later today and the 3rd facility denied the patient secondary to their prior interactions with him. Social Work consult placed. Care turned over to Dr. Ortiz to follow up and disposition. <Phoenix Ortiz, DO - Last Filed: 03/01/22 13:47> Lab Data Labs: Lab Results 02/28/22 02/28/22 03/01/22 Range/Units 22:22 22:22 07:35 WBC 6.3 (4.5-11.0) X10^3/uL RBC 3.73 L (4.5-5.9) X10^6/uL Hgb 11.9 L (13.5-17.5) g/dL Hct 34.4 L (41-53) % MCV 92.1 (80-100) fL MCH 31.9 (26-34) PG MCHC 34.6 (30-36) % RDW 15.5 H (11.6-14.8) % Plt Count 203 (150-400) X10^3/uL Neut % (Auto) 48.5 L (50-75) % Lymph % (Auto) 42.0 H (25-40) % [place] % (Auto) 8.3 (3-14) % Eos % (Auto) 0.7 L (2-4) % Baso % (Auto) 0.5 (0-2) % Neut # (Auto) 3000 (9919-6837) /uL Lymph # (Auto) 2600 (1254-5817) /uL [place] # (Auto) 500 (0-900) /uL Eos # (Auto) 0 (0-450) /uL Baso # (Auto) 0 (0-100) /uL Sodium 146 H D (137-145) mmol/L Potassium 3.3 L (3.4-5.1) mmol/L Chloride 108 H (98-107) mmol/L Carbon Dioxide 22 (22-32) mmol/L BUN 6 L (9-20) mg/dL Creatinine 0.54 L (0.66-1.25) mg/dL Estimated GFR > 60 (>60) mL/min BUN/Creatinine Ratio 11.1 (6-22) Glucose 100 (70-100) mg/dL Calcium 8.6 (8.4-10.2) mg/dL Total Bilirubin 0.3 (0.2-1.3) mg/dL AST 92 H (17-59) IU/L ALT 64 H (<50) IU/L Alkaline Phosphatase 83 (38-126) U/L Total Protein 7.6 (6.3-8.2) g/dL Albumin 4.2 (3.5-5.0) g/dL Globulin 3.4 (1.7-4.1) g/dL Albumin/Globulin Ratio 1.2 (1.0-2.8) Lipase 75 (23-300) U/L Urine RBC (0-5/HPF) Urine WBC (0-5/HPF) Amorphous Sediment Urine Bacteria (None) Urine Mucus (Negative) Ur Culture Indicated? U Opiates 300ng/mL cut (Negative) Ur Oxycodone Screen (Negative) Urine Methadone Screen (Negative) Ur Barbiturates Screen (Negative) U Tricyclic Antidepress (Negative) Ur Phencyclidine Scrn (Negative) Ur Amphetamines Screen (Negative) U Methamphetamines Scrn (Negative) Ur MDMA Scrn (Ecstasy) (Negative) U Benzodiazepines Scrn (Negative) Urine Cocaine Screen (Negative) U Marijuana (THC) Screen (Negative) Ethyl Alcohol 287 H ( - 10) mg/dL SARS-CoV-2 (PCR) Negative (Negative) 03/01/22 03/01/22 Range/Units 08:04 08:04 WBC (4.5-11.0) X10^3/uL RBC (4.5-5.9) X10^6/uL Hgb (13.5-17.5) g/dL Hct (41-53) % MCV (80-100) fL MCH (26-34) PG MCHC (30-36) % RDW (11.6-14.8) % Plt Count (150-400) X10^3/uL Neut % (Auto) (50-75) % Lymph % (Auto) (25-40) % [place] % (Auto) (3-14) % Eos % (Auto) (2-4) % Baso % (Auto) (0-2) % Neut # (Auto) (8988-0960) /uL Lymph # (Auto) (4886-8027) /uL [place] # (Auto) (0-900) /uL Eos # (Auto) (0-450) /uL Baso # (Auto) (0-100) /uL Sodium (137-145) mmol/L Potassium (3.4-5.1) mmol/L Chloride (98-107) mmol/L Carbon Dioxide (22-32) mmol/L BUN (9-20) mg/dL Creatinine (0.66-1.25) mg/dL Estimated GFR (>60) mL/min BUN/Creatinine Ratio (6-22) Glucose (70-100) mg/dL Calcium (8.4-10.2) mg/dL Total Bilirubin (0.2-1.3) mg/dL AST (17-59) IU/L ALT (<50) IU/L Alkaline Phosphatase (38-126) U/L Total Protein (6.3-8.2) g/dL Albumin (3.5-5.0) g/dL Globulin (1.7-4.1) g/dL Albumin/Globulin Ratio (1.0-2.8) Lipase (23-300) U/L Urine RBC None seen (0-5/HPF) Urine WBC 1-5/hpf (0-5/HPF) Amorphous Sediment 2+ Urine Bacteria Occasional (0-1) (None) Urine Mucus 3+ H D (Negative) Ur Culture Indicated? Culture not indicate U Opiates 300ng/mL cut Negative (Negative) Ur Oxycodone Screen Negative (Negative) Urine Methadone Screen Negative (Negative) Ur Barbiturates Screen Positive H (Negative) U Tricyclic Antidepress Negative (Negative) Ur Phencyclidine Scrn Negative (Negative) Ur Amphetamines Screen Negative (Negative) U Methamphetamines Scrn Negative (Negative) Ur MDMA Scrn (Ecstasy) Negative (Negative) U Benzodiazepines Scrn Positive H (Negative) Urine Cocaine Screen Negative (Negative) U Marijuana (THC) Screen Negative (Negative) Ethyl Alcohol ( - 10) mg/dL SARS-CoV-2 (PCR) (Negative) Urine Dip Bedside Urine Glucose Negative Bedside Urine Bilirubin - Negative Bedside Urine Ketone - Negative Urine Specific [place] 1.015 Bedside Urine Occult Blood - Negative Bedside Urine pH 6 Bedside Urine Protein +/- 15 Bedside Urine Urobilinogen +/- 1mg Bedside Urine Nitrite - Negative Bedside Urine Leukocytes - Negative Esterase MDM Narrative Medical decision making narrative: Was elevated and this is consistent with his reported history. His initial CIWA score was 4. Repeat later on was 0. Patient slept and tolerated oral intake. Upon waking he once again asks for Librium as he states this is what he takes for his withdrawals. A repeat CIWA was 6. Reports shaking but there is no visible shaking noted. He was given thiamine upon arrival. Will give a dose of phenobarbital. Contacted the 3 local facilities. One facility had no beds available. One facility thought that they potentially had a bed later today and the 3rd facility denied the patient secondary to their prior interactions with him. Social Work consult placed. Care turned over to Dr. Ortiz to follow up and disposition. 0700 (Angel) received this patient in sign-out from Dr. Acosta. I performed an independent history and physical exam have reviewed the clinical course. Patient is resting comfortably and having no symptoms at this time. 1325-called to see patient, he continues to be asymptomatic and he is requesting discharge. He would prefer not to pursue inpatient. He has been given extensive return precautions, we have offered to keep him as long is needed until we find place aunt but he prefers to go home. Questions answered to his apparent satisfaction Discharge Plan Departure Patient Disposition: Home Clinical Impression: Alcohol withdrawal Instructions: Alcohol Use Disorder Activity Restrictions/Additional Instructions: *You have been diagnosed with [alcohol abuse disorder] *What to do: *Please continue to take your regular medications as directed. [ ] New medication prescriptions sent to your pharmacy: [ ] [ ] New medication written as a paper prescription [x ] No new medications given *Please follow up with your primary care provider in 2-3 days, call for an appointment. Let them know you were seen in the Emergency Department and that we ask that you be seen in follow up. We will electronically transmit a record of today's note if your PCP is in our system *If you do not have a primary care provider please contact the [facility] Resource line at [phone]. They will ask some questions about your medical history and help get you set up with a doctor in the community. *Return to Emergency Department if you should have any new, worsening or concerning symptoms, such as [fever greater than 101 F, shaking chills, worsening pain, persistent vomiting or other bothersome symptoms] Prescriptions: No Action losartan 50 mg tablet 50 mg PO DAILY 0RF clonidine HCl 0.1 mg tablet See Rx Instructions .ROUTE .COMPLEX 0RF Rx Instructions: 0.1 mg orally hydroxyzine HCl 50 mg tablet 50 mg PRN PRN (Reason: Anxiety) 0RF Label Comments: take 1 tablet by mouth twice a day olanzapine 7.5 mg tablet 7.5 mg PO BID 0RF levetiracetam 1,000 mg tablet 1,000 mg PO BID 0RF Referrals: [facility] [Outside] [facility] [Outside] [facility] [Outside] [facility] [Outside] [facility] [Outside] [facility] [Outside] Aman Wright, [Primary Care Provider] -
[2022-02-28] MEDS: THIAMINE 100 MG in SODIUM CHLORIDE 0.9% 100 ML 404 ML IV (22:26)
[2022-02-28 22:30] VITALS: BP 135/99; PULSE 86; RESP 18; O2SAT 98
[2022-02-28 22:35] LABS: Add Manual Diff / Slide Review NO; Basophils Absolute Auto 0 /uL (0-100); Basophils Percent Auto 0.5 % (0-2); Eosinophils Absolute Auto 0 /uL (0-450); Eosinophils Percent Auto 0.7 % (2-4); Hematocrit 34.4 % (41-53); Hemoglobin 11.9 g/dL (13.5-17.5); Lymphocytes Absolute Auto 2600 /uL (1100-4500); Mean Corpuscular HGB Conc 34.6 % (30-36); Mean Corpuscular Hemoglobin 31.9 PG (26-34); Mean Corpuscular Volume 92.1 fL (80-100); Monocytes Absolute Auto 500 /uL (0-900); Monocytes Percent Auto 8.3 % (3-14); Neutrophils Absolute Auto 3000 /uL (1500-7000); Neutrophils Percent Auto 48.5 % (50-75); Platelet Count 203 X10^3/uL (150-400); Red Blood Cell Count 3.73 X10^6/uL (4.5-5.9); Red Cell Distribution Width 15.5 % (11.6-14.8); White Blood Cell Count 6.3 X10^3/uL (4.5-11.0)
[2022-02-28 22:44] LABS: Alanine Aminotransferase 64 IU/L (<50); Albumin 4.2 g/dL (3.5-5.0); Albumin Globulin Ratio 1.2 (1.0-2.8); Alkaline Phosphatase 83 U/L (38-126); Aspartate Aminotransferase 92 IU/L (17-59); BUN Creatinine Ratio 11.1 (6-22); Bilirubin Total 0.3 mg/dL (0.2-1.3); Blood Urea Nitrogen 6 mg/dL (9-20); Calcium 8.6 mg/dL (8.4-10.2); Carbon Dioxide 22 mmol/L (22-32); Chloride 108 mmol/L (98-107); Estimated Glomerular Filt Rate > 60 mL/min (>60); Globulin 3.4 g/dL (1.7-4.1); Glucose 100 mg/dL (70-100); HEMOLYSIS 17 (0-50); Lipase 75 U/L (23-300); Potassium 3.3 mmol/L (3.4-5.1); Sodium 146 mmol/L (137-145); Total Protein 7.6 g/dL (6.3-8.2)
[2022-02-28 22:53] LABS: Ethanol (ETOH) 287 mg/dL
[2022-02-28 23:00] VITALS: BP 109/69; PULSE 85; RESP 18; O2SAT 99
[2022-02-28 23:30] VITALS: BP 106/68; PULSE 82; RESP 18; O2SAT 96
[2022-03-01 02:00] VITALS: PULSE 82; O2SAT 99
[2022-03-01 04:37] VITALS: BP 110/75; PULSE 95; RESP 14; O2SAT 99
--- NOTE | 2022-03-01 04:42 | PC.NURSE ---
Called [facility], no beds available, [facility] 1000[facility].
[2022-03-01] MEDS: PHENobarbital 65 MG/ML VIAL 260 MG IV (06:24)
[2022-03-01] MEDS: SODIUM CHLORIDE 0.9% 1,000 ML 1000 ML IV (06:31)
[2022-03-01 07:36] VITALS: BP 113/80; PULSE 85; RESP 17; TEMP 36.4; O2SAT 98
--- NOTE | 2022-03-01 07:49 | PC.NURSE ---
spoke with pts antonio manager social media rivera [phone] pt has [facility] at [facility]. asked if we can give pt phone number and have pt call him.
[2022-03-01 07:51] LABS: COVID19 -Nasal RAPID Negative (Negative)
[2022-03-01 08:21] LABS: UR Morphine/Opiate cutoff 300 Negative (Negative); Ur Creatinine Normal (Normal); Ur Specific Gravity Normal (Normal); Urine Amphetamines Negative (Negative); Urine Barbiturates Positive (Negative); Urine Benzodiazepines Positive (Negative); Urine Cocaine Negative (Negative); Urine MDMA Negative (Negative); Urine Methadone Negative (Negative); Urine Methamphetamines Negative (Negative); Urine Oxycodone Negative (Negative); Urine Phencyclidine Negative (Negative); Urine Tetrahydrocannabinol Negative (Negative); Urine Tricyclic Antidepressant Negative (Negative); Urine pH Normal (Normal)
[2022-03-01 08:24] LABS: Amorphous Sediment Urine 2+; Bacteria Urine Occasional (0-1); Mucus Urine 3+ (Negative); RBC Urine None Seen (0-5/HPF); WBC Urine 1-5/HPF (0-5/HPF)
[2022-03-01] MEDS: ACETAMINOPHEN 325 MG TABLET 975 MG PO (11:30)
[2022-03-01 11:40] VITALS: BP 148/96; PULSE 106; RESP 18; O2SAT 96
[2022-03-01 13:45] VITALS: BP 137/95; PULSE 94; RESP 16; TEMP 37.3; O2SAT 98
== END 2022-03-01 13:47 | disposition home or self-care (01) ==
PROVIDERS: Emergency Medicine; Emergency Provider Emergency Medicine; PCP Family Medicine
DX: F10.139 Alcohol abuse with withdrawal, unspecified (principal); Y90.8 Blood alcohol level of 240 mg/100 ml or more; Z20.822 Contact with and (suspected) exposure to COVID-19
CPT/HCPCS: 36415; 80053; 80305; 80320; 81003; 81015; 83690; 85025; 87086; 87635; 96365; 96375; 99284; C9803; J2560

== ENCOUNTER 2022-03-01 16:37 | Emergency (ER) | payer OTHER, MEDICAID, SELFPAY ==
[2021-07-09 05:48] VITALS: BMI 23.7
[2022-03-01] VITALS (11 sets, daily range): BP systolic 108–129; BP diastolic 68–95; PULSE 76–100; RESP 18; TEMP 36.6; O2SAT 94–100; BMI 23.7
[2022-03-01 17:22] LABS: Add Manual Diff / Slide Review NO; Basophils Absolute Auto 0 /uL (0-100); Basophils Percent Auto 0.6 % (0-2); Eosinophils Absolute Auto 0 /uL (0-450); Eosinophils Percent Auto 0.6 % (2-4); Hematocrit 34.9 % (41-53); Lymphocytes Absolute Auto 2000 /uL (1100-4500); Lymphocytes Percent Auto 33.6 % (25-40); Mean Corpuscular HGB Conc 34.3 % (30-36); Mean Corpuscular Hemoglobin 31.7 PG (26-34); Mean Corpuscular Volume 92.3 fL (80-100); Monocytes Absolute Auto 500 /uL (0-900); Monocytes Percent Auto 8.8 % (3-14); Neutrophils Absolute Auto 3400 /uL (1500-7000); Neutrophils Percent Auto 56.4 % (50-75); Platelet Count 223 X10^3/uL (150-400); Red Blood Cell Count 3.78 X10^6/uL (4.5-5.9); Red Cell Distribution Width 15.3 % (11.6-14.8)
[2022-03-01 17:23] LABS: UR Morphine/Opiate cutoff 300 Negative (Negative); Ur Creatinine Normal (Normal); Ur Specific Gravity Normal (Normal); Urine Amphetamines Negative (Negative); Urine Barbiturates Negative (Negative); Urine Benzodiazepines Positive (Negative); Urine Cocaine Negative (Negative); Urine MDMA Negative (Negative); Urine Methadone Negative (Negative); Urine Methamphetamines Negative (Negative); Urine Oxycodone Negative (Negative); Urine Phencyclidine Negative (Negative); Urine Tetrahydrocannabinol Negative (Negative); Urine Tricyclic Antidepressant Negative (Negative); Urine pH Normal (Normal)
[2022-03-01 17:28] LABS: COVID19 -Nasal RAPID Negative (Negative)
[2022-03-01 17:34] LABS: Acetaminophen < 10 ug/mL (10-30); Alanine Aminotransferase 69 IU/L (<50); Albumin 4.4 g/dL (3.5-5.0); Albumin Globulin Ratio 1.3 (1.0-2.8); Alkaline Phosphatase 86 U/L (38-126); Aspartate Aminotransferase 84 IU/L (17-59); BUN Creatinine Ratio 13.1 (6-22); Bilirubin Total 0.2 mg/dL (0.2-1.3); Blood Urea Nitrogen 8 mg/dL (9-20); Calcium 9.2 mg/dL (8.4-10.2); Carbon Dioxide 25 mmol/L (22-32); Chloride 108 mmol/L (98-107); Estimated Glomerular Filt Rate > 60 mL/min (>60); Globulin 3.4 g/dL (1.7-4.1); Glucose 111 mg/dL (70-100); HEMOLYSIS < 15 (0-50); Potassium 3.6 mmol/L (3.4-5.1); Salicylate < 1.0 mg/dL (<20); Sodium 144 mmol/L (137-145); Total Protein 7.8 g/dL (6.3-8.2)
[2022-03-01 17:41] LABS: Ethanol (ETOH) 327 mg/dL
[2022-03-01 18:00] LABS: Free T4, Direct Thyroxine 1.06 ng/dL (0.78-2.19)
--- NOTE | 2022-03-01 18:09 | ED_ITS ---
HPI - Alcohol <DO Rigo Mcintyre Last Filed: 03/02/22 11:03> General Chief Complaint: Toxicology Problem Stated Complaint: Wants detox Time Seen by Provider: 03/01/22 17:41 Source: patient Mode of arrival: EMS History of Present Illness HPI narrative: 31M daily smoker with history of heavy alcohol abuse and multiple visits recently requesting help with voluntary placement. He has had difficulty being placed as he has been refused admittance at most local facilities during this stretch. He most recently was here earlier today in left, stating that he was feeling quite well and would prefer to pursue placement as an outpatient, through the help of his status signed [employer]. He proceeded to visit local drinking establishment and consume upwards of 1/5 of alcohol a presents by EMS clearly intoxicated. Related Data Home Medications Medication Instructions Recorded Confirmed clonidine HCl 0.1 mg tablet See Rx Instructions .ROUTE .COMPLEX 02/16/22 02/16/22 hydroxyzine HCl 50 mg tablet 50 mg PRN PRN 02/16/22 02/16/22 levetiracetam 1,000 mg tablet 1,000 mg PO BID 02/16/22 02/16/22 losartan 50 mg tablet 50 mg PO DAILY 02/16/22 02/16/22 olanzapine 7.5 mg tablet 7.5 mg PO BID 02/16/22 02/16/22 Allergies Allergy/AdvReac Type Severity Reaction Status Date / Time cephalexin Allergy Verified 02/28/22 23:09 marijuana Allergy Verified 02/28/22 23:09 ssri Allergy Uncoded 02/16/22 04:21 Review of Systems <DO Rigo Mcintyre Last Filed: 03/02/22 11:03> Review of Systems Narrative: GENERAL: See HPI HEENT: Denies sinus pain, ear pain, sore throat, difficulty swallowing, dizziness. RESPIRATORY: See HPI CARDIOVASCULAR: See HP GASTROINTESTINAL: See HP : Denies dysuria, frequency, incontinence, hematuria, urinary retention. MUSCULOSKELETAL: denies weakness, joint pain, or bony pain SKIN: Denies rash, skin lesions, or other NEUROLOGIC: Denies weakness, headache, numbness, change in speech, confusion, seizures, incoordination. PSYCHIATRIC: No concerning psychosocial issues. 12 point review of systems is negative except for those stated above Patient History <DO Rigo Mcintyre Last Filed: 03/02/22 11:03> Medical History Alcohol abuse COVID-19 Hypertension Lip laceration Surgical History No history of previous surgery Family History Other First degree relatives alive and well Social History household members: none Smoking Status: Current every day smoker Smoking Status: Current every day smoker tobacco type: cigarettes alcohol intake frequency: 3 or more drinks per day Alcohol type: hard liquor Substance Use Type: does not use Exam <Phoenix Ortiz DO - Last Filed: 03/02/22 11:03> Narrative Exam Narrative: GENERAL: [31] year old patient appears stated age. Well-developed patient, in mild distress. Slurring, smells of alcohol, unsteady gait HEAD: Atraumatic. Normocephalic. EYES: Pupils equal round and reactive. Extraocular motions intact. No scleral icterus. No injection or drainage. ENT: Nose without bleeding, purulent drainage. Throat without erythema, tonsillar hypertrophy or exudate. Airway patent. NECK: Trachea midline. Non tender CARDIOVASCULAR: Regular rate and rhythm without murmurs, gallops, or rubs. RESPIRATORY: Clear to auscultation. Breath sounds equal bilaterally. No wheezes, rales, or rhonchi. GASTROINTESTINAL: Abdomen soft, non-tender, nondistended. EXTREMITIES: No edema or joint tenderness. BACK: Nontender without deformity or crepitance. No flank tenderness. NEURO: AOx3. SKIN: No rash or erythema of visible areas Initial Vital Signs Initial Vital Signs: Vital Signs Temperature 97.9 F 03/01/22 16:40 Pulse Rate 96 H 03/01/22 16:40 Respiratory Rate 18 03/01/22 16:40 Blood Pressure 129/95 H 03/01/22 16:40 Pulse Oximetry 100 03/01/22 16:40 <Herman Acosta DO - Last Filed: 03/02/22 18:00> Initial Vital Signs Initial Vital Signs: Vital Signs Temperature 97.9 F 03/01/22 16:40 Pulse Rate 96 H 03/01/22 16:40 Respiratory Rate 18 03/01/22 16:40 Blood Pressure 129/95 H 03/01/22 16:40 Pulse Oximetry 100 03/01/22 16:40 Course <Phoenix Ortiz DO - Last Filed: 03/02/22 11:03> Orders Ordered: Discontinued Medications Acetaminophen (Acetaminophen 325 Mg Tablet) 650 mg PO NOW ONE Stop: 03/02/22 05:41 Last Admin: 03/02/22 05:45 Dose: 650 mg Documented by: TORRES Vital Signs Vital signs: Vital Signs - 8 hr 03/02/22 11:05 Pulse Rate 106 H Respiratory Rate 12 Blood Pressure 146/105 H Pulse Oximetry 98 <Herman Acosta DO - Last Filed: 03/02/22 18:00> Orders Ordered: Discontinued Medications Acetaminophen (Acetaminophen 325 Mg Tablet) 650 mg PO NOW ONE Stop: 03/02/22 05:41 Last Admin: 03/02/22 05:45 Dose: 650 mg Documented by: TORRES Vital Signs Vital signs: Vital Signs - 8 hr 03/02/22 11:05 Pulse Rate 106 H Respiratory Rate 12 Blood Pressure 146/105 H Pulse Oximetry 98 MDM - Alcohol <Phoenix Ortiz DO - Last Filed: 03/02/22 11:03> Lab Data Result diagrams: 03/01/22 17:15 03/01/22 17:15 Labs: Lab Results 03/01/22 03/01/22 03/01/22 Range/Units 16:50 16:50 17:15 WBC 6.0 (4.5-11.0) X10^3/uL RBC 3.78 L (4.5-5.9) X10^6/uL Hgb 12.0 L (13.5-17.5) g/dL Hct 34.9 L (41-53) % MCV 92.3 (80-100) fL MCH 31.7 (26-34) PG MCHC 34.3 (30-36) % RDW 15.3 H (11.6-14.8) % Plt Count 223 (150-400) X10^3/uL Neut % (Auto) 56.4 (50-75) % Lymph % (Auto) 33.6 (25-40) % [place] % (Auto) 8.8 (3-14) % Eos % (Auto) 0.6 L (2-4) % Baso % (Auto) 0.6 (0-2) % Neut # (Auto) 3400 (0464-1642) /uL Lymph # (Auto) 2000 (9701-3016) /uL [place] # (Auto) 500 (0-900) /uL Eos # (Auto) 0 (0-450) /uL Baso # (Auto) 0 (0-100) /uL Sodium (137-145) mmol/L Potassium (3.4-5.1) mmol/L Chloride (98-107) mmol/L Carbon Dioxide (22-32) mmol/L BUN (9-20) mg/dL Creatinine (0.66-1.25) mg/dL Estimated GFR (>60) mL/min BUN/Creatinine Ratio (6-22) Glucose (70-100) mg/dL Calcium (8.4-10.2) mg/dL Total Bilirubin (0.2-1.3) mg/dL AST (17-59) IU/L ALT (<50) IU/L Alkaline Phosphatase (38-126) U/L Total Protein (6.3-8.2) g/dL Albumin (3.5-5.0) g/dL Globulin (1.7-4.1) g/dL Albumin/Globulin Ratio (1.0-2.8) TSH (0.47-4.68) uIU/mL Free T4 (0.78-2.19) ng/dL Salicylates (<20) mg/dL U Opiates 300ng/mL cut Negative (Negative) Ur Oxycodone Screen Negative (Negative) Urine Methadone Screen Negative (Negative) Acetaminophen (10-30) ug/mL Ur Barbiturates Screen Negative (Negative) U Tricyclic Antidepress Negative (Negative) Ur Phencyclidine Scrn Negative (Negative) Ur Amphetamines Screen Negative (Negative) U Methamphetamines Scrn Negative (Negative) Ur MDMA Scrn (Ecstasy) Negative (Negative) U Benzodiazepines Scrn Positive H (Negative) Urine Cocaine Screen Negative (Negative) U Marijuana (THC) Screen Negative (Negative) Ethyl Alcohol ( - 10) mg/dL SARS-CoV-2 (PCR) Negative (Negative) 03/01/22 03/01/22 Range/Units 17:15 17:15 WBC (4.5-11.0) X10^3/uL RBC (4.5-5.9) X10^6/uL Hgb (13.5-17.5) g/dL Hct (41-53) % MCV (80-100) fL MCH (26-34) PG MCHC (30-36) % RDW (11.6-14.8) % Plt Count (150-400) X10^3/uL Neut % (Auto) (50-75) % Lymph % (Auto) (25-40) % [place] % (Auto) (3-14) % Eos % (Auto) (2-4) % Baso % (Auto) (0-2) % Neut # (Auto) (9843-4185) /uL Lymph # (Auto) (8186-8277) /uL [place] # (Auto) (0-900) /uL Eos # (Auto) (0-450) /uL Baso # (Auto) (0-100) /uL Sodium 144 (137-145) mmol/L Potassium 3.6 (3.4-5.1) mmol/L Chloride 108 H (98-107) mmol/L Carbon Dioxide 25 (22-32) mmol/L BUN 8 L (9-20) mg/dL Creatinine 0.61 L (0.66-1.25) mg/dL Estimated GFR > 60 (>60) mL/min BUN/Creatinine Ratio 13.1 (6-22) Glucose 111 H (70-100) mg/dL Calcium 9.2 (8.4-10.2) mg/dL Total Bilirubin 0.2 (0.2-1.3) mg/dL AST 84 H (17-59) IU/L ALT 69 H (<50) IU/L Alkaline Phosphatase 86 (38-126) U/L Total Protein 7.8 (6.3-8.2) g/dL Albumin 4.4 (3.5-5.0) g/dL Globulin 3.4 (1.7-4.1) g/dL Albumin/Globulin Ratio 1.3 (1.0-2.8) TSH 0.977 (0.47-4.68) uIU/mL Free T4 1.06 (0.78-2.19) ng/dL Salicylates < 1.0 (<20) mg/dL U Opiates 300ng/mL cut (Negative) Ur Oxycodone Screen (Negative) Urine Methadone Screen (Negative) Acetaminophen < 10 (10-30) ug/mL Ur Barbiturates Screen (Negative) U Tricyclic Antidepress (Negative) Ur Phencyclidine Scrn (Negative) Ur Amphetamines Screen (Negative) U Methamphetamines Scrn (Negative) Ur MDMA Scrn (Ecstasy) (Negative) U Benzodiazepines Scrn (Negative) Urine Cocaine Screen (Negative) U Marijuana (THC) Screen (Negative) Ethyl Alcohol 327 H ( - 10) mg/dL SARS-CoV-2 (PCR) (Negative) Urine Dip Bedside Urine Glucose Negative Bedside Urine Bilirubin - Negative Bedside Urine Ketone - Negative Urine Specific [place] 1.010 Bedside Urine Occult Blood - Negative Bedside Urine pH 6 Bedside Urine Protein - Negative Bedside Urine Urobilinogen - Negative Bedside Urine Nitrite - Negative Bedside Urine Leukocytes - Negative Esterase MDM Narrative Medical decision making narrative: 1914 -at this time patient is medically cleared. Is my opinion that based on his recent pattern of behavior and lack of good jenny he is at significant risk to discharge and meets criteria for activation of Russell's Law. Patient and nursing aware of this. Signed out to Dr. Acosta for final disposition. Dr acosta: I received turned over. Preview patient's history and physical exam and labs. I am well aware of this patient and his prior alcohol use and his [facility] visit less than 24 hours ago. Patient has had episodes where he is alert oriented and is walking around the department without issue. He has also been sleeping comfortably. He has asked multiple times for ?medications ?because of ?withdrawal ?however he currently does not have any subjective findings of withdrawal have. I did have a discussion with DCR about invoking Russell's Law given his significant alcohol use history. DCR at the time was Ana. He stated that the only facilities that take Russell's Law patient is were full and have no bed availability so we would be unable to involuntarily detained him. We will continue to observe. 0330: Patient is sleeping. Resting comfortably. 0445: Patient is sleeping. Continues to be resting comfortably. No agitation. Will continue to monitor. 0620: Patient did week of pain request Tylenol for headache. He currently remains stable. Will continue to monitor. Care turned over to Dr. Ortiz for further evaluation and disposition. 7:00 a.m. (Angel) Patient received in sign out from Dr. Acosta. I have reviewed the clinical course and performed an independent history and physical exam. 1100 -patient continues to rest comfortably, non tachycardic, no tremors, no pain, diaphoresis or other signs of withdrawal. As noted above there are currently no available beds either on the voluntary or involuntary side. Patient understands this and requests discharge. He plans to follow with his care worker. Based on the frequency of his recent visits and lack of evidence to suggest he wishes to quit I will not be prescribing any medications for him. Return precautions given and questions answered to his apparent satisfaction <Herman Acosta, DO - Last Filed: 03/02/22 18:00> Lab Data Labs: Lab Results 03/01/22 03/01/22 03/01/22 Range/Units 16:50 16:50 17:15 WBC 6.0 (4.5-11.0) X10^3/uL RBC 3.78 L (4.5-5.9) X10^6/uL Hgb 12.0 L (13.5-17.5) g/dL Hct 34.9 L (41-53) % MCV 92.3 (80-100) fL MCH 31.7 (26-34) PG MCHC 34.3 (30-36) % RDW 15.3 H (11.6-14.8) % Plt Count 223 (150-400) X10^3/uL Neut % (Auto) 56.4 (50-75) % Lymph % (Auto) 33.6 (25-40) % [place] % (Auto) 8.8 (3-14) % Eos % (Auto) 0.6 L (2-4) % Baso % (Auto) 0.6 (0-2) % Neut # (Auto) 3400 (4406-9500) /uL Lymph # (Auto) 2000 (2421-1024) /uL [place] # (Auto) 500 (0-900) /uL Eos # (Auto) 0 (0-450) /uL Baso # (Auto) 0 (0-100) /uL Sodium (137-145) mmol/L Potassium (3.4-5.1) mmol/L Chloride (98-107) mmol/L Carbon Dioxide (22-32) mmol/L BUN (9-20) mg/dL Creatinine (0.66-1.25) mg/dL Estimated GFR (>60) mL/min BUN/Creatinine Ratio (6-22) Glucose (70-100) mg/dL Calcium (8.4-10.2) mg/dL Total Bilirubin (0.2-1.3) mg/dL AST (17-59) IU/L ALT (<50) IU/L Alkaline Phosphatase (38-126) U/L Total Protein (6.3-8.2) g/dL Albumin (3.5-5.0) g/dL Globulin (1.7-4.1) g/dL Albumin/Globulin Ratio (1.0-2.8) TSH (0.47-4.68) uIU/mL Free T4 (0.78-2.19) ng/dL Salicylates (<20) mg/dL U Opiates 300ng/mL cut Negative (Negative) Ur Oxycodone Screen Negative (Negative) Urine Methadone Screen Negative (Negative) Acetaminophen (10-30) ug/mL Ur Barbiturates Screen Negative (Negative) U Tricyclic Antidepress Negative (Negative) Ur Phencyclidine Scrn Negative (Negative) Ur Amphetamines Screen Negative (Negative) U Methamphetamines Scrn Negative (Negative) Ur MDMA Scrn (Ecstasy) Negative (Negative) U Benzodiazepines Scrn Positive H (Negative) Urine Cocaine Screen Negative (Negative) U Marijuana (THC) Screen Negative (Negative) Ethyl Alcohol ( - 10) mg/dL SARS-CoV-2 (PCR) Negative (Negative) 03/01/22 03/01/22 Range/Units 17:15 17:15 WBC (4.5-11.0) X10^3/uL RBC (4.5-5.9) X10^6/uL Hgb (13.5-17.5) g/dL Hct (41-53) % MCV (80-100) fL MCH (26-34) PG MCHC (30-36) % RDW (11.6-14.8) % Plt Count (150-400) X10^3/uL Neut % (Auto) (50-75) % Lymph % (Auto) (25-40) % [place] % (Auto) (3-14) % Eos % (Auto) (2-4) % Baso % (Auto) (0-2) % Neut # (Auto) (5097-4456) /uL Lymph # (Auto) (5719-6522) /uL [place] # (Auto) (0-900) /uL Eos # (Auto) (0-450) /uL Baso # (Auto) (0-100) /uL Sodium 144 (137-145) mmol/L Potassium 3.6 (3.4-5.1) mmol/L Chloride 108 H (98-107) mmol/L Carbon Dioxide 25 (22-32) mmol/L BUN 8 L (9-20) mg/dL Creatinine 0.61 L (0.66-1.25) mg/dL Estimated GFR > 60 (>60) mL/min BUN/Creatinine Ratio 13.1 (6-22) Glucose 111 H (70-100) mg/dL Calcium 9.2 (8.4-10.2) mg/dL Total Bilirubin 0.2 (0.2-1.3) mg/dL AST 84 H (17-59) IU/L ALT 69 H (<50) IU/L Alkaline Phosphatase 86 (38-126) U/L Total Protein 7.8 (6.3-8.2) g/dL Albumin 4.4 (3.5-5.0) g/dL Globulin 3.4 (1.7-4.1) g/dL Albumin/Globulin Ratio 1.3 (1.0-2.8) TSH 0.977 (0.47-4.68) uIU/mL Free T4 1.06 (0.78-2.19) ng/dL Salicylates < 1.0 (<20) mg/dL U Opiates 300ng/mL cut (Negative) Ur Oxycodone Screen (Negative) Urine Methadone Screen (Negative) Acetaminophen < 10 (10-30) ug/mL Ur Barbiturates Screen (Negative) U Tricyclic Antidepress (Negative) Ur Phencyclidine Scrn (Negative) Ur Amphetamines Screen (Negative) U Methamphetamines Scrn (Negative) Ur MDMA Scrn (Ecstasy) (Negative) U Benzodiazepines Scrn (Negative) Urine Cocaine Screen (Negative) U Marijuana (THC) Screen (Negative) Ethyl Alcohol 327 H ( - 10) mg/dL SARS-CoV-2 (PCR) (Negative) Urine Dip Bedside Urine Glucose Negative Bedside Urine Bilirubin - Negative Bedside Urine Ketone - Negative Urine Specific [place] 1.010 Bedside Urine Occult Blood - Negative Bedside Urine pH 6 Bedside Urine Protein - Negative Bedside Urine Urobilinogen - Negative Bedside Urine Nitrite - Negative Bedside Urine Leukocytes - Negative Esterase MDM Narrative Medical decision making narrative: 1914 -at this time patient is medically cleared. Is my opinion that based on his recent pattern of behavior and lack of good jenny he is at significant risk to discharge and meets criteria for activation of Russell's Law. Patient and nursing aware of this. Signed out to Dr. Acosta for final disposition. Dr acosta: I received turned over. Preview patient's history and physical exam and labs. I am well aware of this patient and his prior alcohol use and his last visit less than 24 hours ago. Patient has had episodes where he is alert oriented and is walking around the department without issue. He has also been sleeping comfortably. He has asked multiple times for ?medications ?because of ?withdrawal ?however he currently does not have any subjective findings of withdrawal have. I did have a discussion with DCR about invoking Russell's Law given his significant alcohol use history. DCR at the time was Ana. He stated that the only facilities that take Russell's Law patient is were full and have no bed availability so we would be unable to involuntarily detained him. We will continue to observe. 0330: Patient is sleeping. Resting comfortably. 0445: Patient is sleeping. Continues to be resting comfortably. No agitation. Will continue to monitor. 0620: Patient did week of pain request Tylenol for headache. He currently remains stable. Will continue to monitor. Care turned over to Dr. Ortiz for further evaluation and disposition. Discharge Plan Departure Patient Disposition: Home Clinical Impression: Alcoholic intoxication, Alcohol abuse Instructions: DI for Alcohol Use Disorder Activity Restrictions/Additional Instructions: *You have been diagnosed with [alcohol abuse disorder, no evidence of current withdrawal. As we discussed we were unable to find availability at detox facilities throughout the state at this point in time. *What to do: *Please continue to take your regular medications as directed. [ ] New medication prescriptions sent to your pharmacy: [ ] [ ] New medication written as a paper prescription [ x] No new medications given *Please follow up with your primary care provider in 2-3 days, call for an appointment. Let them know you were seen in the Emergency Department and that we ask that you be seen in follow up. We will electronically transmit a record of today's note if your PCP is in our system *If you do not have a primary care provider please contact the [facility] Resource line at [phone]. They will ask some questions about your medical history and help get you set up with a doctor in the community. *Return to Emergency Department if you should have any new, worsening or concerning symptoms, such as [fever greater than 101 F, shaking chills, worsening pain, persistent vomiting or other bothersome symptoms] Prescriptions: No Action losartan 50 mg tablet 50 mg PO DAILY 0RF clonidine HCl 0.1 mg tablet See Rx Instructions .ROUTE .COMPLEX 0RF Rx Instructions: 0.1 mg orally hydroxyzine HCl 50 mg tablet 50 mg PRN PRN (Reason: Anxiety) 0RF Label Comments: take 1 tablet by mouth twice a day olanzapine 7.5 mg tablet 7.5 mg PO BID 0RF levetiracetam 1,000 mg tablet 1,000 mg PO BID 0RF Referrals: Aman Wright, DO [Primary Care Provider] -
[2022-03-01 18:14] LABS: Thyroid Stimulating Hormone 0.977 uIU/mL (0.47-4.68)
--- NOTE | 2022-03-01 22:18 | PC.NURSE ---
Addendum entered by Cande Smith R.N. 03/02/22 01:13: Patient requested water and asking about medications. Notified provider. Addendum entered by Cande Smith R.N. 03/02/22 00:36: Patient continues to appear to be resting comfortably at this time. Addendum entered by Cande Smith R.N. 03/01/22 23:09: Patient continues to appear to be resting comfortably at this time. Original Note: Patient appears to be resting comfortably at this time.
[2022-03-02 01:10] VITALS: O2SAT 97
[2022-03-02 01:11] VITALS: BP 119/73; PULSE 81
[2022-03-02] MEDS: ACETAMINOPHEN 325 MG TABLET 650 MG PO (05:45)
--- NOTE | 2022-03-02 09:31 | PC.NURSE ---
patient was given an update and informed of the situation and he stated that he felt better and was ready to go.
[2022-03-02 11:05] VITALS: BP 146/105; PULSE 106; RESP 12; O2SAT 98
== END 2022-03-02 11:07 | disposition home or self-care (01) ==
PROVIDERS: Emergency Provider Emergency Medicine; PCP Family Medicine
DX: F10.129 Alcohol abuse with intoxication, unspecified (principal); Y90.8 Blood alcohol level of 240 mg/100 ml or more; Z20.822 Contact with and (suspected) exposure to COVID-19
CPT/HCPCS: 36415; 80053; 80305; 80320; 80329; 81003; 84439; 84443; 85025; 87635; 99283; C9803; G0480

== ENCOUNTER 2022-03-07 19:25 | Emergency (ER) | payer OTHER, MEDICAID, SELFPAY ==
[2021-07-09 05:48] VITALS: BMI 23.7
[2022-03-07] VITALS (12 sets, daily range): BP systolic 112–134; BP diastolic 61–85; PULSE 93–111; RESP 16; TEMP 37; O2SAT 93–97; BMI 24.4
[2022-03-07 21:15] LABS: Add Manual Diff / Slide Review NO; Basophils Absolute Auto 0 /uL (0-100); Basophils Percent Auto 0.9 % (0-2); Eosinophils Absolute Auto 0 /uL (0-450); Eosinophils Percent Auto 0.7 % (2-4); Hemoglobin 12.3 g/dL (13.5-17.5); Lymphocytes Absolute Auto 1900 /uL (1100-4500); Lymphocytes Percent Auto 37.9 % (25-40); Mean Corpuscular HGB Conc 34.1 % (30-36); Mean Corpuscular Hemoglobin 31.7 PG (26-34); Monocytes Absolute Auto 500 /uL (0-900); Monocytes Percent Auto 9.5 % (3-14); Neutrophils Absolute Auto 2600 /uL (1500-7000); Platelet Count 304 X10^3/uL (150-400); Red Blood Cell Count 3.87 X10^6/uL (4.5-5.9); Red Cell Distribution Width 16.1 % (11.6-14.8); White Blood Cell Count 5.1 X10^3/uL (4.5-11.0)
[2022-03-07 21:18] LABS: Prothrombin Time 11.6 SECONDS (10.1-12.7)
[2022-03-07 21:21] LABS: PTT Partial Thromboplastin Tim 32 SECONDS (26.4-36.2)
[2022-03-07 21:24] LABS: Alanine Aminotransferase 66 IU/L (<50); Albumin 4.3 g/dL (3.5-5.0); Albumin Globulin Ratio 1.3 (1.0-2.8); Alkaline Phosphatase 89 U/L (38-126); Aspartate Aminotransferase 109 IU/L (17-59); BUN Creatinine Ratio 25.5 (6-22); Bilirubin Total 0.1 mg/dL (0.2-1.3); Blood Urea Nitrogen 14 mg/dL (9-20); Calcium 8.8 mg/dL (8.4-10.2); Carbon Dioxide 29 mmol/L (22-32); Chloride 102 mmol/L (98-107); Estimated Glomerular Filt Rate > 60 mL/min (>60); Ethanol (ETOH) 119 mg/dL; Globulin 3.3 g/dL (1.7-4.1); Glucose 104 mg/dL (70-100); HEMOLYSIS < 15 (0-50); Lipase 114 U/L (23-300); Potassium 3.8 mmol/L (3.4-5.1); Sodium 140 mmol/L (137-145); Total Protein 7.6 g/dL (6.3-8.2)
[2022-03-07 22:05] LABS: Thyroid Stimulating Hormone 2.32 uIU/mL (0.47-4.68)
[2022-03-07] MEDS: SODIUM CHLORIDE 0.9% 1,000 ML 1000 ML IV (22:12)
[2022-03-07] MEDS: PHENobarbital 65 MG/ML VIAL 260 MG IV (23:23)
--- NOTE | 2022-03-07 23:47 | ED_ITS ---
HPI - Alcohol <Erica Ceja DO - Last Filed: 03/13/22 08:40> General Chief Complaint: Toxicology Problem Stated Complaint: ETOH withdraw Time Seen by Provider: 03/07/22 20:48 Source: patient Mode of arrival: Ambulatory Limitations: no limitations History of Present Illness HPI narrative: This is a 31-year-old male with known alcohol abuse and prior visits for same requesting placement. Patient states he is currently going through alcohol withdrawal he states he is having hallucinations, he feels shaky, he has had nausea and vomiting, he has had some mild diarrhea. Patient states he has had seizures in the past. Not aware of any recently. He has a history of hypertension states he takes daily medication. Patient states that he has been drinking a 5th of alcohol daily for the past 5 days he states he had a period of sobriety for some time but was here for several visits between February 16 on the 01 of March. Patient does smoke. He denies any recreational or illicit. Pat ient states that he does not respond well to phenobarbital all seems to do better with benzodiazepines. Related Data Home Medications Medication Instructions Recorded Confirmed clonidine HCl 0.1 mg tablet See Rx Instructions .ROUTE .COMPLEX 02/16/22 02/16/22 hydroxyzine HCl 50 mg tablet 50 mg PRN PRN 02/16/22 02/16/22 levetiracetam 1,000 mg tablet 1,000 mg PO BID 02/16/22 02/16/22 losartan 50 mg tablet 50 mg PO DAILY 02/16/22 02/16/22 olanzapine 7.5 mg tablet 7.5 mg PO BID 02/16/22 02/16/22 Allergies Allergy/AdvReac Type Severity Reaction Status Date / Time cephalexin Allergy Verified 03/07/22 19:28 marijuana Allergy Verified 03/07/22 19:28 ssri Allergy Uncoded 02/16/22 04:21 Review of Systems <Erica Ceja DO - Last Filed: 03/13/22 08:40> Review of Systems ROS Unobtainable: All systems reviewed & are unremarkable except as noted in HPI and below Patient History <Erica Ceja DO - Last Filed: 03/13/22 08:40> Medical History Alcohol abuse COVID-19 Hypertension Lip laceration Surgical History No history of previous surgery Family History Other First degree relatives alive and well Social History household members: none Smoking Status: Current every day smoker Smoking Status: Current every day smoker tobacco type: cigarettes alcohol intake frequency: 3 or more drinks per day Alcohol type: hard liquor Substance Use Type: does not use Exam <Erica Ceja DO - Last Filed: 03/13/22 08:40> Narrative Exam Narrative: GENERAL: Alert and oriented x three, male in mild distress. Patient has clear speech. Patient does not appear to be responding to any internal stimuli. HEENT: Head normocephalic, atraumatic, EOMI, pupils reactive, face symmetric, moist mucous membranes NECK: Supple, full range of motion CARDIOVASCULAR: Regular rate and rhythm without murmurs, rubs or gallops. No JVD. RESPIRATORY: Breath sounds equal bilaterally, no wheezes rales or rhonchi. No tachypnea accessory muscle use. ABDOMEN: Soft, nontender. Normoactive bowel sounds all 4 quadrants. No guarding or rebound, rigidity, no mass : No CVA tenderness EXTREMITIES: Normal range of motion, no clubbing or edema. Neurovascularly intact NEUROLOGICAL: Cranial nerves II through XII grossly intact. Moving all extremities. Mild tremor. SKIN: Warm, dry, no petechiae, no rashes or lesions. Initial Vital Signs Initial Vital Signs: Vital Signs Temperature 98.6 F 03/07/22 19:28 Pulse Rate 111 H 03/07/22 19:28 Respiratory Rate 16 03/07/22 19:28 Blood Pressure 134/85 03/07/22 19:28 Pulse Oximetry 96 03/07/22 19:28 <Herman Acosta DO - Last Filed: 03/08/22 14:35> Initial Vital Signs Initial Vital Signs: Vital Signs Temperature 98.6 F 03/07/22 19:28 Pulse Rate 111 H 03/07/22 19:28 Respiratory Rate 16 03/07/22 19:28 Blood Pressure 134/85 03/07/22 19:28 Pulse Oximetry 96 03/07/22 19:28 Course <Erica Ceja, DO - Last Filed: 03/13/22 08:40> Orders Ordered: Discontinued Medications Chlordiazepoxide HCl (Chlordiazepoxide 25 Mg Capsule) 50 mg PO NOW ONE Stop: 03/08/22 05:52 Last Admin: 03/08/22 05:55 Dose: 50 mg Documented by: TORRES Sodium Chloride (Normal Saline 0.9%) 1,000 mls @ 1,000 mls/hr IV BOLUS ONE Stop: 03/07/22 21:47 Last Infusion: 03/07/22 23:14 Dose: 0 mls/hr Documented by: Admin: 03/07/22 22:12 Dose: 1,000 mls/hr Documented by: VALENTINA Sodium Chloride (Normal Saline 0.9%) 1,000 mls @ 1,000 mls/hr IV BOLUS ONE Stop: 03/08/22 02:28 Last Infusion: 03/08/22 05:00 Dose: 0 mls/hr Documented by: Admin: 03/08/22 01:31 Dose: 1,000 mls/hr Documented by: TORRES Thiamine HCl 100 mg/ Sodium (Chloride) 101 mls @ 404 mls/hr IV NOW ONE Stop: 03/08/22 11:19 Last Infusion: 03/08/22 12:25 Dose: 0 mls/hr Documented by: Admin: 03/08/22 12:04 Dose: 404 mls/hr Documented by: NIA Lorazepam (Lorazepam 2 Mg/Ml Inj) 1 mg IV NOW ONE Stop: 03/08/22 11:01 Last Admin: 03/08/22 11:10 Dose: 1 mg Documented by: NIA Lorazepam (Lorazepam 2 Mg/Ml Inj) 1 mg IV NOW ONE Stop: 03/08/22 15:01 Last Admin: 03/08/22 15:11 Dose: 1 mg Documented by: RESHMA Nicotine (Nicotine 21 Mg Patch) 21 mg TOP NOW ONE Stop: 03/08/22 12:29 Last Admin: 03/08/22 12:57 Dose: 21 mg Documented by: NIA Phenobarbital (Phenobarbital 65 Mg/Ml Vial) 260 mg IV NOW ONE Stop: 03/07/22 23:18 Last Admin: 03/07/22 23:23 Dose: 260 mg Documented by: VALENTINA Phenobarbital (Phenobarbital 65 Mg/Ml Vial) 130 mg IV NOW ONE Stop: 03/08/22 00:13 Last Admin: 03/08/22 00:17 Dose: 130 mg Documented by: VALENTINA Reevaluation(s) Reevaluation #1: Patient sleeping, vitals have normalized. Time: 02:00 Reevaluation #2: patient CIWA 10, down from 22. Patient had awakened but sleeping on recheck. Time: 03:36 Vital Signs Vital signs: Vital Signs - 8 hr 03/08/22 07:00 03/08/22 07:30 03/08/22 08:00 Pulse Rate 78 92 H 90 Blood Pressure 126/75 144/92 H Pulse Oximetry 95 93 94 03/08/22 08:30 03/08/22 09:00 03/08/22 09:30 Pulse Rate 81 79 85 Blood Pressure Pulse Oximetry 96 96 96 03/08/22 10:00 03/08/22 10:30 03/08/22 11:00 Pulse Rate 98 H 87 85 Blood Pressure Pulse Oximetry 95 97 97 03/08/22 11:11 03/08/22 11:30 03/08/22 12:00 Pulse Rate 96 H 84 75 Blood Pressure 142/88 H Pulse Oximetry 94 96 95 03/08/22 12:30 03/08/22 13:00 Pulse Rate 93 H 94 H Blood Pressure Pulse Oximetry 96 96 <Herman Acosta DO - Last Filed: 03/08/22 14:35> Orders Ordered: Discontinued Medications Chlordiazepoxide HCl (Chlordiazepoxide 25 Mg Capsule) 50 mg PO NOW ONE Stop: 03/08/22 05:52 Last Admin: 03/08/22 05:55 Dose: 50 mg Documented by: TORRES Sodium Chloride (Normal Saline 0.9%) 1,000 mls @ 1,000 mls/hr IV BOLUS ONE Stop: 03/07/22 21:47 Last Infusion: 03/07/22 23:14 Dose: 0 mls/hr Documented by: Admin: 03/07/22 22:12 Dose: 1,000 mls/hr Documented by: VALENTINA Sodium Chloride (Normal Saline 0.9%) 1,000 mls @ 1,000 mls/hr IV BOLUS ONE Stop: 03/08/22 02:28 Last Infusion: 03/08/22 05:00 Dose: 0 mls/hr Documented by: Admin: 03/08/22 01:31 Dose: 1,000 mls/hr Documented by: TORRES Thiamine HCl 100 mg/ Sodium (Chloride) 101 mls @ 404 mls/hr IV NOW ONE Stop: 03/08/22 11:19 Last Infusion: 03/08/22 12:25 Dose: 0 mls/hr Documented by: Admin: 03/08/22 12:04 Dose: 404 mls/hr Documented by: NIA Lorazepam (Lorazepam 2 Mg/Ml Inj) 1 mg IV NOW ONE Stop: 03/08/22 11:01 Last Admin: 03/08/22 11:10 Dose: 1 mg Documented by: NIA Lorazepam (Lorazepam 2 Mg/Ml Inj) 1 mg IV NOW ONE Stop: 03/08/22 15:01 Last Admin: 03/08/22 15:11 Dose: 1 mg Documented by: RESHMA Nicotine (Nicotine 21 Mg Patch) 21 mg TOP NOW ONE Stop: 03/08/22 12:29 Last Admin: 03/08/22 12:57 Dose: 21 mg Documented by: NIA Phenobarbital (Phenobarbital 65 Mg/Ml Vial) 260 mg IV NOW ONE Stop: 03/07/22 23:18 Last Admin: 03/07/22 23:23 Dose: 260 mg Documented by: VALENTINA Phenobarbital (Phenobarbital 65 Mg/Ml Vial) 130 mg IV NOW ONE Stop: 03/08/22 00:13 Last Admin: 03/08/22 00:17 Dose: 130 mg Documented by: VALENTINA Vital Signs Vital signs: Vital Signs - 8 hr 03/08/22 07:00 03/08/22 07:30 03/08/22 08:00 Pulse Rate 78 92 H 90 Blood Pressure 126/75 144/92 H Pulse Oximetry 95 93 94 03/08/22 08:30 03/08/22 09:00 03/08/22 09:30 Pulse Rate 81 79 85 Blood Pressure Pulse Oximetry 96 96 96 03/08/22 10:00 03/08/22 10:30 03/08/22 11:00 Pulse Rate 98 H 87 85 Blood Pressure Pulse Oximetry 95 97 97 03/08/22 11:11 03/08/22 11:30 03/08/22 12:00 Pulse Rate 96 H 84 75 Blood Pressure 142/88 H Pulse Oximetry 94 96 95 03/08/22 12:30 03/08/22 13:00 Pulse Rate 93 H 94 H Blood Pressure Pulse Oximetry 96 96 MDM - Alcohol <Erica Ceja, DO - Last Filed: 03/13/22 08:40> Lab Data Result diagrams: 03/07/22 21:00 03/07/22 21:00 Labs: Lab Results 03/07/22 03/07/22 03/07/22 Range/Units 21:00 21:00 21:00 WBC 5.1 (4.5-11.0) X10^3/uL RBC 3.87 L (4.5-5.9) X10^6/uL Hgb 12.3 L (13.5-17.5) g/dL Hct 36.0 L (41-53) % MCV 93.0 (80-100) fL MCH 31.7 (26-34) PG MCHC 34.1 (30-36) % RDW 16.1 H (11.6-14.8) % Plt Count 304 (150-400) X10^3/uL Neut % (Auto) 51.0 (50-75) % Lymph % (Auto) 37.9 (25-40) % Marshall % (Auto) 9.5 (3-14) % Eos % (Auto) 0.7 L (2-4) % Baso % (Auto) 0.9 (0-2) % Neut # (Auto) 2600 (9112-6079) /uL Lymph # (Auto) 1900 (6275-1059) /uL Marshall # (Auto) 500 (0-900) /uL Eos # (Auto) 0 (0-450) /uL Baso # (Auto) 0 (0-100) /uL PT 11.6 (10.1-12.7) SECONDS INR 1.0 (0.9-1.3) APTT 32 (26.4-36.2) SECONDS Sodium 140 (137-145) mmol/L Potassium 3.8 (3.4-5.1) mmol/L Chloride 102 (98-107) mmol/L Carbon Dioxide 29 (22-32) mmol/L BUN 14 (9-20) mg/dL Creatinine 0.55 L (0.66-1.25) mg/dL Estimated GFR > 60 (>60) mL/min BUN/Creatinine Ratio 25.5 H (6-22) Glucose 104 H (70-100) mg/dL Calcium 8.8 (8.4-10.2) mg/dL Total Bilirubin 0.1 L (0.2-1.3) mg/dL AST 109 H (17-59) IU/L ALT 66 H (<50) IU/L Alkaline Phosphatase 89 (38-126) U/L Total Protein 7.6 (6.3-8.2) g/dL Albumin 4.3 (3.5-5.0) g/dL Globulin 3.3 (1.7-4.1) g/dL Albumin/Globulin Ratio 1.3 (1.0-2.8) Lipase 114 D (23-300) U/L TSH (0.47-4.68) uIU/mL U Opiates 300ng/mL cut (Negative) Ur Oxycodone Screen (Negative) Urine Methadone Screen (Negative) Ur Barbiturates Screen (Negative) U Tricyclic Antidepress (Negative) Ur Phencyclidine Scrn (Negative) Ur Amphetamines Screen (Negative) U Methamphetamines Scrn (Negative) Ur MDMA Scrn (Ecstasy) (Negative) U Benzodiazepines Scrn (Negative) Urine Cocaine Screen (Negative) U Marijuana (THC) Screen (Negative) Ethyl Alcohol 119 H ( - 10) mg/dL SARS-CoV-2 (PCR) (Negative) 03/07/22 03/08/22 03/08/22 Range/Units 21:00 07:35 08:48 WBC (4.5-11.0) X10^3/uL RBC (4.5-5.9) X10^6/uL Hgb (13.5-17.5) g/dL Hct (41-53) % MCV (80-100) fL MCH (26-34) PG MCHC (30-36) % RDW (11.6-14.8) % Plt Count (150-400) X10^3/uL Neut % (Auto) (50-75) % Lymph % (Auto) (25-40) % Marshall % (Auto) (3-14) % Eos % (Auto) (2-4) % Baso % (Auto) (0-2) % Neut # (Auto) (3895-6558) /uL Lymph # (Auto) (4622-1308) /uL Marshall # (Auto) (0-900) /uL Eos # (Auto) (0-450) /uL Baso # (Auto) (0-100) /uL PT (10.1-12.7) SECONDS INR (0.9-1.3) APTT (26.4-36.2) SECONDS Sodium (137-145) mmol/L Potassium (3.4-5.1) mmol/L Chloride (98-107) mmol/L Carbon Dioxide (22-32) mmol/L BUN (9-20) mg/dL Creatinine (0.66-1.25) mg/dL Estimated GFR (>60) mL/min BUN/Creatinine Ratio (6-22) Glucose (70-100) mg/dL Calcium (8.4-10.2) mg/dL Total Bilirubin (0.2-1.3) mg/dL AST (17-59) IU/L ALT (<50) IU/L Alkaline Phosphatase (38-126) U/L Total Protein (6.3-8.2) g/dL Albumin (3.5-5.0) g/dL Globulin (1.7-4.1) g/dL Albumin/Globulin Ratio (1.0-2.8) Lipase (23-300) U/L TSH 2.32 D (0.47-4.68) uIU/mL U Opiates 300ng/mL cut Negative (Negative) Ur Oxycodone Screen Negative (Negative) Urine Methadone Screen Negative (Negative) Ur Barbiturates Screen Positive H (Negative) U Tricyclic Antidepress Negative (Negative) Ur Phencyclidine Scrn Negative (Negative) Ur Amphetamines Screen Negative (Negative) U Methamphetamines Scrn Negative (Negative) Ur MDMA Scrn (Ecstasy) Negative (Negative) U Benzodiazepines Scrn Positive H (Negative) Urine Cocaine Screen Negative (Negative) U Marijuana (THC) Screen Positive H (Negative) Ethyl Alcohol ( - 10) mg/dL SARS-CoV-2 (PCR) Negative (Negative) MDM Narrative Medical decision making narrative: This is a 31-year-old male with known alcohol abuse. Patient states he is in alcohol withdrawal with hallucinations. Patient states private with are not helpful but she was improved from 22-10 with 2 doses of phenobarbital. Patient has been sleeping on rechecks. He is medically cleared except for urine tox. At this time patient does not appear to need inpatient admission for his alcohol withdrawal. He is interested in inpatient detox, plan to obtain urine for his medical clearance, [employer] consult and search for beds when patient is medically cleared. Patient signed out to Dr. Acosta while awaiting possible placement. <Herman Acosta, DO - Last Filed: 03/08/22 14:35> Lab Data Attestation: I reviewed the patient's lab results. Labs: Lab Results 03/07/22 03/07/22 03/07/22 Range/Units 21:00 21:00 21:00 WBC 5.1 (4.5-11.0) X10^3/uL RBC 3.87 L (4.5-5.9) X10^6/uL Hgb 12.3 L (13.5-17.5) g/dL Hct 36.0 L (41-53) % MCV 93.0 (80-100) fL MCH 31.7 (26-34) PG MCHC 34.1 (30-36) % RDW 16.1 H (11.6-14.8) % Plt Count 304 (150-400) X10^3/uL Neut % (Auto) 51.0 (50-75) % Lymph % (Auto) 37.9 (25-40) % Marshall % (Auto) 9.5 (3-14) % Eos % (Auto) 0.7 L (2-4) % Baso % (Auto) 0.9 (0-2) % Neut # (Auto) 2600 (3081-8559) /uL Lymph # (Auto) 1900 (6146-5868) /uL Marshall # (Auto) 500 (0-900) /uL Eos # (Auto) 0 (0-450) /uL Baso # (Auto) 0 (0-100) /uL PT 11.6 (10.1-12.7) SECONDS INR 1.0 (0.9-1.3) APTT 32 (26.4-36.2) SECONDS Sodium 140 (137-145) mmol/L Potassium 3.8 (3.4-5.1) mmol/L Chloride 102 (98-107) mmol/L Carbon Dioxide 29 (22-32) mmol/L BUN 14 (9-20) mg/dL Creatinine 0.55 L (0.66-1.25) mg/dL Estimated GFR > 60 (>60) mL/min BUN/Creatinine Ratio 25.5 H (6-22) Glucose 104 H (70-100) mg/dL Calcium 8.8 (8.4-10.2) mg/dL Total Bilirubin 0.1 L (0.2-1.3) mg/dL AST 109 H (17-59) IU/L ALT 66 H (<50) IU/L Alkaline Phosphatase 89 (38-126) U/L Total Protein 7.6 (6.3-8.2) g/dL Albumin 4.3 (3.5-5.0) g/dL Globulin 3.3 (1.7-4.1) g/dL Albumin/Globulin Ratio 1.3 (1.0-2.8) Lipase 114 D (23-300) U/L TSH (0.47-4.68) uIU/mL U Opiates 300ng/mL cut (Negative) Ur Oxycodone Screen (Negative) Urine Methadone Screen (Negative) Ur Barbiturates Screen (Negative) U Tricyclic Antidepress (Negative) Ur Phencyclidine Scrn (Negative) Ur Amphetamines Screen (Negative) U Methamphetamines Scrn (Negative) Ur MDMA Scrn (Ecstasy) (Negative) U Benzodiazepines Scrn (Negative) Urine Cocaine Screen (Negative) U Marijuana (THC) Screen (Negative) Ethyl Alcohol 119 H ( - 10) mg/dL SARS-CoV-2 (PCR) (Negative) 03/07/22 03/08/22 03/08/22 Range/Units 21:00 07:35 08:48 WBC (4.5-11.0) X10^3/uL RBC (4.5-5.9) X10^6/uL Hgb (13.5-17.5) g/dL Hct (41-53) % MCV (80-100) fL MCH (26-34) PG MCHC (30-36) % RDW (11.6-14.8) % Plt Count (150-400) X10^3/uL Neut % (Auto) (50-75) % Lymph % (Auto) (25-40) % Marshall % (Auto) (3-14) % Eos % (Auto) (2-4) % Baso % (Auto) (0-2) % Neut # (Auto) (1587-2858) /uL Lymph # (Auto) (0092-7703) /uL Marshall # (Auto) (0-900) /uL Eos # (Auto) (0-450) /uL Baso # (Auto) (0-100) /uL PT (10.1-12.7) SECONDS INR (0.9-1.3) APTT (26.4-36.2) SECONDS Sodium (137-145) mmol/L Potassium (3.4-5.1) mmol/L Chloride (98-107) mmol/L Carbon Dioxide (22-32) mmol/L BUN (9-20) mg/dL Creatinine (0.66-1.25) mg/dL Estimated GFR (>60) mL/min BUN/Creatinine Ratio (6-22) Glucose (70-100) mg/dL Calcium (8.4-10.2) mg/dL Total Bilirubin (0.2-1.3) mg/dL AST (17-59) IU/L ALT (<50) IU/L Alkaline Phosphatase (38-126) U/L Total Protein (6.3-8.2) g/dL Albumin (3.5-5.0) g/dL Globulin (1.7-4.1) g/dL Albumin/Globulin Ratio (1.0-2.8) Lipase (23-300) U/L TSH 2.32 D (0.47-4.68) uIU/mL U Opiates 300ng/mL cut Negative (Negative) Ur Oxycodone Screen Negative (Negative) Urine Methadone Screen Negative (Negative) Ur Barbiturates Screen Positive H (Negative) U Tricyclic Antidepress Negative (Negative) Ur Phencyclidine Scrn Negative (Negative) Ur Amphetamines Screen Negative (Negative) U Methamphetamines Scrn Negative (Negative) Ur MDMA Scrn (Ecstasy) Negative (Negative) U Benzodiazepines Scrn Positive H (Negative) Urine Cocaine Screen Negative (Negative) U Marijuana (THC) Screen Positive H (Negative) Ethyl Alcohol ( - 10) mg/dL SARS-CoV-2 (PCR) Negative (Negative) MDM Narrative Medical decision making narrative: This is a 31-year-old male with known alcohol abuse. Patient states he is in alcohol withdrawal with hallucinations. Patient states private with are not helpful but she was improved from 22-10 with 2 doses of phenobarbital. Patient has been sleeping on rechecks. He is medically cleared except for urine tox. At this time patient does not appear to need inpatient admission for his alcohol withdrawal. He is interested in inpatient detox, plan to obtain urine for his medical clearance, [employer] consult and search for beds when patient is medically cleared. Patient signed out to Dr. Acosta while awaiting possible placement. Dr Acosta: Reviewed history. Patient is well-known to myself reviewed labs. He is medically cleared. Discussed the case with DCR about Russell's Law. Will continue to find placement. Patient is medically clear. Was seen by social work and DCR patient is voluntary but will also be detained under Russell's Law given his alcohol abuse history and the amount of times he has been seen recently in failure of outpatient treatment. Patient is stable for transport. Discharge Plan Departure Patient Disposition: [facility] Clinical Impression: Alcohol abuse with withdrawal Prescriptions: No Action losartan 50 mg tablet 50 mg PO DAILY 0RF clonidine HCl 0.1 mg tablet See Rx Instructions .ROUTE .COMPLEX 0RF Rx Instructions: 0.1 mg orally hydroxyzine HCl 50 mg tablet 50 mg PRN PRN (Reason: Anxiety) 0RF Label Comments: take 1 tablet by mouth twice a day olanzapine 7.5 mg tablet 7.5 mg PO BID 0RF levetiracetam 1,000 mg tablet 1,000 mg PO BID 0RF Referrals: Aman Wright DO [Primary Care Provider] - Stand Alone Forms: Naloxone Standing Order [facility]
[2022-03-08] VITALS (33 sets, daily range): BP systolic 113–149; BP diastolic 65–93; PULSE 68–101; O2SAT 93–98
[2022-03-08] MEDS: PHENobarbital 65 MG/ML VIAL 130 MG IV (00:17)
[2022-03-08] MEDS: SODIUM CHLORIDE 0.9% 1,000 ML 1000 ML IV (01:31)
[2022-03-08] MEDS: chlordiazePOXIDE 25 MG CAPSULE 50 MG PO (05:55)
[2022-03-08 08:06] LABS: COVID19 -Nasal RAPID Negative (Negative)
[2022-03-08 09:08] LABS: Ur Creatinine Normal (Normal); Ur Specific Gravity Normal (Normal); Urine pH Normal (Normal)
[2022-03-08 09:09] LABS: UR Morphine/Opiate cutoff 300 Negative (Negative); Urine Amphetamines Negative (Negative); Urine Barbiturates Positive (Negative); Urine Benzodiazepines Positive (Negative); Urine Cocaine Negative (Negative); Urine MDMA Negative (Negative); Urine Methadone Negative (Negative); Urine Methamphetamines Negative (Negative); Urine Oxycodone Negative (Negative); Urine Phencyclidine Negative (Negative); Urine Tetrahydrocannabinol Positive (Negative); Urine Tricyclic Antidepressant Negative (Negative)
--- NOTE | 2022-03-08 10:58 | CM.SWNOTE ---
PUBLIC SERVICES ASSISTANT Note PUBLIC SERVICES ASSISTANT receives consult for patient who presents to ED seeking treatment and detox for ETOH withdrawals. Patient has hx of at least 62 ED encounters regarding similar symptoms. ED provider Dr. Acosta contacts DCR for dispatch due to concern for Russell's Law. DCR Cere is assigned and proceeds to meet with patient and assess that patient is appropriate for Russell's Law detainment. Patient has been accepted at [facility] in [place]. Transportation is set up for 1500 at the earliest. PUBLIC SERVICES ASSISTANT to await for detainment paperwork to serve patient. Plan: Patient to transfer to [facility] for CEASAR tx Russell's Law [facility] bed. CHARY Falcon
[2022-03-08] MEDS: LORazepam 2 MG/ML INJ 1 MG IV ×2 (11:10→15:11)
[2022-03-08] MEDS: THIAMINE 100 MG in SODIUM CHLORIDE 0.9% 100 ML 404 MG IV (12:04)
[2022-03-08] MEDS: NICOTINE 21 MG PATCH TOP (12:57)
--- NOTE | 2022-03-08 13:43 | PC.NURSE ---
Pt provided tuna sandwich lunch per request at approximately 1210.
== END 2022-03-08 15:15 | disposition short-term general hospital (02) ==
PROVIDERS: Emergency Medicine; Emergency Provider Emergency Medicine; PCP Family Medicine
DX: F10.151 Alcohol abuse with alcohol-induced psychotic disorder with hallucinations (principal); R11.2 Nausea with vomiting, unspecified; R19.7 Diarrhea, unspecified; Z20.822 Contact with and (suspected) exposure to COVID-19
CPT/HCPCS: 36415; 80053; 80305; 80320; 83690; 84443; 85025; 85610; 85730; 87635; 96374; 96375; 96376; 99284; C9803; J2060; J2560

== ENCOUNTER 2022-05-21 17:09 | Emergency (ER) | payer OTHER, MEDICAID, SELFPAY ==
[2021-07-09 05:48] VITALS: BMI 23.7
[2022-05-21 17:14] VITALS: BP 140/96; PULSE 118; RESP 20; TEMP 37; O2SAT 96; BMI 27.8
--- NOTE | 2022-05-21 17:24 | DI.RAD.S_ITS ---
PROCEDURE: XR CHEST 1V INDICATIONS: chest pain TECHNIQUE: One view of the chest was acquired. COMPARISON: None. FINDINGS: Surgical changes and devices: A metallic zipper is noted overlying the left hemithorax presumably external to the patient. Recommend direct visualization. Lungs and pleura: Lungs are clear. No pleural effusions or pneumothorax. Mediastinum: Mediastinal contours appear normal. Heart size is normal. Bones and chest wall: No suspicious bony lesions. Overlying soft tissues appear unremarkable. IMPRESSION: No acute pulmonary process. Dictated by: Sarah Bond M.D. on 05/21/2022 at 17:49 Approved by: Sarah Bond M.D. on 05/21/2022 at 17:51
[2022-05-21 18:33] LABS: Add Manual Diff / Slide Review NO; Basophils Absolute Auto 100 /uL (0-100); Eosinophils Absolute Auto 0 /uL (0-450); Eosinophils Percent Auto 0.5 % (2-4); Hematocrit 34.9 % (41-53); Hemoglobin 12.3 g/dL (13.5-17.5); Lymphocytes Absolute Auto 3000 /uL (1100-4500); Lymphocytes Percent Auto 38.4 % (25-40); Mean Corpuscular HGB Conc 35.2 % (30-36); Mean Corpuscular Hemoglobin 30.5 PG (26-34); Mean Corpuscular Volume 86.5 fL (80-100); Monocytes Absolute Auto 600 /uL (0-900); Monocytes Percent Auto 8.1 % (3-14); Neutrophils Absolute Auto 4000 /uL (1500-7000); Platelet Count 279 X10^3/uL (150-400); Red Blood Cell Count 4.03 X10^6/uL (4.5-5.9); Red Cell Distribution Width 14.6 % (11.6-14.8); White Blood Cell Count 7.7 X10^3/uL (4.5-11.0)
--- NOTE | 2022-05-21 18:37 | ED_ITS ---
HPI - Chest Pain General Chief Complaint: Chest Pain Stated Complaint: heart rate out of control, chest pain, anxiety Time Seen by Provider: 05/21/22 18:36 Source: patient Mode of arrival: Ambulatory Limitations: no limitations History of Present Illness HPI narrative: this visit was a VDC and he was not seen by a physician or APC Related Data Home Medications Medication Instructions Recorded Confirmed clonidine HCl 0.1 mg tablet See Rx Instructions .Route .COMPLEX 02/16/22 05/21/22 hydroxyzine HCl 50 mg tablet 100 mg TID 02/16/22 05/21/22 levetiracetam 1,000 mg tablet 1,000 mg PO BID 02/16/22 02/16/22 losartan 50 mg tablet 100 mg PO DAILY 02/16/22 05/21/22 olanzapine 7.5 mg tablet 7.5 mg PO BID 02/16/22 02/16/22 lorazepam 1 mg tablet 1 mg PO BID PRN Anxiety 05/21/22 05/21/22 Previous Rx's Medication Instructions Recorded clonidine HCl 0.1 mg tablet 0.1 mg PO BID PRN hypertensive 05/22/22 emergency #7 tabs hydroxyzine HCl 50 mg tablet 50 mg PO TID PRN nausea and 05/22/22 vomiting #10 tabs losartan 100 mg tablet 100 mg PO DAILY #30 tabs 05/22/22 Allergies Allergy/AdvReac Type Severity Reaction Status Date / Time cephalexin Allergy Verified 05/22/22 02:26 marijuana (cannabis) Allergy Verified 05/22/22 02:26 [marijuana] ssri Allergy Uncoded 05/21/22 17:21 Patient History Medical History Alcohol abuse COVID-19 Hypertension Lip laceration Surgical History No history of previous surgery Family History Other First degree relatives alive and well Social History household members: none Smoking Status: Current every day smoker Smoking Status: Current every day smoker tobacco type: cigarettes alcohol intake frequency: 3 or more drinks per day Alcohol type: hard liquor Substance Use Type: does not use Exam Initial Vital Signs Initial Vital Signs: Vital Signs Temperature 98.6 F 05/21/22 17:14 Pulse Rate 118 H 05/21/22 17:14 Respiratory Rate 20 05/21/22 17:14 Blood Pressure 140/96 H 05/21/22 17:14 Pulse Oximetry 96 05/21/22 17:14 Oxygen Delivery Method 05/21/22 17:14 Course Orders Ordered: ED Orders 05/21/22 17:24 XR chest 1V Stat EKG-12 Lead Stat 05/21/22 18:20 Complete Blood Count AUTO DIFF Stat Comprehensive Metabolic Panel Stat Lipase Stat Magnesium Stat Troponin & CK Cardiac Panel Stat Vital Signs Vital signs: Vital Signs - 8 hr 05/21/22 17:14 Temperature 98.6 F Pulse Rate 118 H Respiratory Rate 20 Blood Pressure 140/96 H Pulse Oximetry 96 Oxygen Delivery Method Room Air MDM - Chest Pain Lab Data Result diagrams: 05/21/22 18:20 05/21/22 18:20 Labs: Lab Results 05/21/22 05/21/22 Range/Units 18:20 18:20 WBC 7.7 (4.5-11.0) X10^3/uL RBC 4.03 L (4.5-5.9) X10^6/uL Hgb 12.3 L (13.5-17.5) g/dL Hct 34.9 L (41-53) % MCV 86.5 (80-100) fL MCH 30.5 (26-34) PG MCHC 35.2 (30-36) % RDW 14.6 (11.6-14.8) % Plt Count 279 (150-400) X10^3/uL Neut % (Auto) 52.0 (50-75) % Lymph % (Auto) 38.4 (25-40) % [place] % (Auto) 8.1 (3-14) % Eos % (Auto) 0.5 L (2-4) % Baso % (Auto) 1.0 (0-2) % Neut # (Auto) 4000 (7858-4473) /uL Lymph # (Auto) 3000 (0428-2859) /uL [place] # (Auto) 600 (0-900) /uL Eos # (Auto) 0 (0-450) /uL Baso # (Auto) 100 (0-100) /uL Sodium 142 (137-145) mmol/L Potassium 3.7 (3.4-5.1) mmol/L Chloride 104 (98-107) mmol/L Carbon Dioxide 22 (22-32) mmol/L BUN 11 (9-20) mg/dL Creatinine 0.59 L (0.66-1.25) mg/dL Estimated GFR > 60 (>60) mL/min BUN/Creatinine Ratio 18.6 (6-22) Glucose 104 H (70-100) mg/dL Calcium 8.7 (8.4-10.2) mg/dL Magnesium 1.9 (1.6-2.3) mg/dL Total Bilirubin 0.4 (0.2-1.3) mg/dL AST 75 H (17-59) IU/L ALT 50 H (<50) IU/L Alkaline Phosphatase 94 (38-126) U/L Total Creatine Kinase 819 H (55-170) U/L CK-MB (CK-2) 2.88 H (<2.37) ng/mL CK-MB (CK-2) Rel Index 0.4 L (1.5-5.0) % Troponin I < 0.012 (0.01-0.034) ng/mL Total Protein 7.9 (6.3-8.2) g/dL Albumin 4.8 (3.5-5.0) g/dL Globulin 3.1 (1.7-4.1) g/dL Albumin/Globulin Ratio 1.5 (1.0-2.8) Lipase 107 (23-300) U/L Discharge Plan Departure Patient Disposition: Left Against Medical Advice Clinical Impression: Left against medical advice Prescriptions: No Action lorazepam 1 mg Tablet 1 mg PO BID PRN (Reason: Anxiety) losartan 50 mg tablet 100 mg PO DAILY clonidine HCl 0.1 mg tablet See Rx Instructions .ROUTE .COMPLEX Rx Instructions: 0.1 mg orally hydroxyzine HCl 50 mg tablet 100 mg TID Label Comments: take 1 tablet by mouth twice a day olanzapine 7.5 mg tablet 7.5 mg PO BID levetiracetam 1,000 mg tablet 1,000 mg PO BID clonidine HCl 0.1 mg tablet 0.1 mg PO BID PRN (Reason: hypertensive emergency) Qty: 7 0RF losartan 100 mg tablet 100 mg PO DAILY Qty: 30 0RF hydroxyzine HCl 50 mg tablet 50 mg PO TID PRN (Reason: nausea and vomiting) Qty: 10 0RF Referrals: Aman Wright DO [Primary Care Provider] - Stand Alone Forms: Against Medical Advice
[2022-05-21 18:41] VITALS: PULSE 116
[2022-05-21 18:42] VITALS: BP 135/88; PULSE 115; RESP 20; O2SAT 96
[2022-05-21 18:44] LABS: Alanine Aminotransferase 50 IU/L (<50); Albumin 4.8 g/dL (3.5-5.0); Albumin Globulin Ratio 1.5 (1.0-2.8); Alkaline Phosphatase 94 U/L (38-126); Aspartate Aminotransferase 75 IU/L (17-59); BUN Creatinine Ratio 18.6 (6-22); Bilirubin Total 0.4 mg/dL (0.2-1.3); Blood Urea Nitrogen 11 mg/dL (9-20); Calcium 8.7 mg/dL (8.4-10.2); Carbon Dioxide 22 mmol/L (22-32); Chloride 104 mmol/L (98-107); Creatine Kinase 819 U/L (55-170); Estimated Glomerular Filt Rate > 60 mL/min (>60); Globulin 3.1 g/dL (1.7-4.1); Glucose 104 mg/dL (70-100); HEMOLYSIS 23 (0-50); Lipase 107 U/L (23-300); Magnesium 1.9 mg/dL (1.6-2.3); Potassium 3.7 mmol/L (3.4-5.1); Sodium 142 mmol/L (137-145); Total Protein 7.9 g/dL (6.3-8.2)
[2022-05-21 18:55] LABS: Troponin I < 0.012 ng/mL (0.01-0.034)
[2022-05-21 18:59] LABS: CKMB % Relative Index 0.4 % (1.5-5.0); Creatine Kinase MB 2.88 ng/mL (<2.37)
--- NOTE | 2022-05-21 19:28 | PC.NURSE ---
Pt up to nurses desk asking to go outside to call Mother. Advised he can call his mother from inside the department. student education specialist at side for conversation. Pt has already left department multiple times and admits to drinking. Admits to wanting to go outside to smoke. advised he can use cell phone or hospital phone in the department and we can provide nicotine patch. Advised we are unable to allow him to go outside the building with an IV in place to drink alcohol, smoke cigarettes, or do any other unknown activities. Pt stated then take my IV out i'm leaving. IV removed and pt ambulated out of department with steady gait.
== END 2022-05-21 19:38 | disposition left against medical advice (07) ==
PROVIDERS: Emergency Medicine; Emergency Provider Emergency Medicine; PCP Family Medicine
DX: R07.9 Chest pain, unspecified (principal)
CPT/HCPCS: 36415; 71045; 80053; 82550; 82553; 83690; 83735; 84484; 85025

== ENCOUNTER 2022-05-21 19:57 | Emergency (ER) | payer OTHER, MEDICAID, SELFPAY ==
[2021-07-09 05:48] VITALS: BMI 23.7
[2022-05-21] VITALS (7 sets, daily range): BP systolic 128–135; BP diastolic 76–85; PULSE 77–113; RESP 17–20; TEMP 36.6; O2SAT 94–95
--- NOTE | 2022-05-21 21:59 | PC.NURSE ---
pt states he is here for a few different reasons. when asked what his number one thing he wants done today, he states that he would like his mediations refilled. he also states he just went to rehab and detoxed from alcohol but today he drank a bottle of wine and he is worried he is going through withdrawls right now. pt states he feels like he is going to have a seizure.
--- NOTE | 2022-05-21 23:06 | ED_ITS ---
HPI - Recheck/Abnormal Lab/Rx General Chief Complaint: Recheck/Abnormal Lab/Rx Stated Complaint: anxiety, cardiac issues Time Seen by Provider: 05/21/22 21:56 Source: patient Mode of arrival: Ambulatory History of Present Illness HPI narrative: 32-year-old male smoker with history of extensive alcohol abuse, benzodiazepine abuse, and anxiety returns with a chief complaint of feeling anxious and agitated, stating that he is had palpitations for the past few days because he is not had access to his chronic medications. He states that he had recently been in a long-term detox facility and was unable to obtain his medications upon discharge. He went to the emergency department and [place] yesterday but was discharged after evaluation and no filling his medications. He denies any fever or chills. Denies use of any street drugs. He denies nausea, vomiting or diarrhea. He is requesting we refill his medications and is hoping to obtain a prescription for Librium. Related Data Home Medications Medication Instructions Recorded Confirmed clonidine HCl 0.1 mg tablet See Rx Instructions .Route .COMPLEX 02/16/22 05/21/22 hydroxyzine HCl 50 mg tablet 100 mg TID 02/16/22 05/21/22 levetiracetam 1,000 mg tablet 1,000 mg PO BID 02/16/22 02/16/22 losartan 50 mg tablet 100 mg PO DAILY 02/16/22 05/21/22 olanzapine 7.5 mg tablet 7.5 mg PO BID 02/16/22 02/16/22 lorazepam 1 mg tablet 1 mg PO BID PRN Anxiety 05/21/22 05/21/22 Previous Rx's Medication Instructions Recorded clonidine HCl 0.1 mg tablet 0.1 mg PO BID PRN hypertensive 05/22/22 emergency #7 tabs hydroxyzine HCl 50 mg tablet 50 mg PO TID PRN nausea and 05/22/22 vomiting #10 tabs losartan 100 mg tablet 100 mg PO DAILY #30 tabs 05/22/22 Allergies Allergy/AdvReac Type Severity Reaction Status Date / Time cephalexin Allergy Verified 05/22/22 02:26 marijuana (cannabis) Allergy Verified 05/22/22 02:26 [marijuana] ssri Allergy Uncoded 05/21/22 17:21 Review of Systems Review of Systems Narrative: GENERAL: see HPI HEENT: Denies sinus pain, ear pain, sore throat, difficulty swallowing, dizziness. RESPIRATORY: Denies dyspnea, cough, wheezing, hemoptysis, sputum. CARDIOVASCULAR: see HPI GASTROINTESTINAL: Denies nausea, vomiting, abdominal pain, diarrhea, constipation, melena. : Denies dysuria, frequency, incontinence, hematuria, urinary retention. MUSCULOSKELETAL: denies weakness, joint pain, or bony pain SKIN: Denies rash, skin lesions, or other NEUROLOGIC: Denies weakness, headache, numbness, change in speech, confusion, seizures, incoordination. PSYCHIATRIC: see HPI 12 point review of systems is negative except for those stated above Patient History Medical History Alcohol abuse COVID-19 Hypertension Lip laceration Surgical History No history of previous surgery Family History Other First degree relatives alive and well Social History household members: none Smoking Status: Current every day smoker Smoking Status: Current every day smoker tobacco type: cigarettes alcohol intake frequency: 3 or more drinks per day Alcohol type: hard liquor Substance Use Type: does not use Exam Narrative Exam Narrative: GENERAL: [32] year old patient appears stated age. Well-developed patient, in mild distress. HEAD: Atraumatic. Normocephalic. EYES: Pupils equal round and reactive. Extraocular motions intact. No scleral icterus. No injection or drainage. ENT: Nose without bleeding, purulent drainage. Throat without erythema, tonsillar hypertrophy or exudate. Airway patent. NECK: Trachea midline. Non tender CARDIOVASCULAR: Regular rate and rhythm without murmurs, gallops, or rubs. RESPIRATORY: Clear to auscultation. Breath sounds equal bilaterally. No wheezes, rales, or rhonchi. GASTROINTESTINAL: Abdomen soft, non-tender, nondistended. EXTREMITIES: No edema or joint tenderness. BACK: Nontender without deformity or crepitance. No flank tenderness. NEURO: AOx3. SKIN: No rash or erythema of visible areas Initial Vital Signs Initial Vital Signs: Vital Signs Temperature 98 F 05/21/22 20:10 Pulse Rate 110 H 05/21/22 20:10 Respiratory Rate 18 05/21/22 20:10 Blood Pressure 135/85 05/21/22 20:10 Pulse Oximetry 95 05/21/22 20:10 Oxygen Delivery Method 05/21/22 20:10 Course Orders Ordered: Discontinued Medications Clonidine HCl (Clonidine 0.1 Mg Tablet) 0.1 mg PO NOW ONE Stop: 05/21/22 23:11 Last Admin: 05/21/22 23:19 Dose: 0.1 mg Documented By: NR Hydroxyzine Pamoate (Hydroxyzine Pamoate 25 Mg Capsule) 100 mg PO NOW ONE Stop: 05/21/22 23:11 Last Admin: 05/21/22 23:18 Dose: 100 mg Documented By: NR Losartan Potassium (Losartan 50 Mg Tablet) 100 mg PO NOW ONE Stop: 05/21/22 23:11 Last Admin: 05/21/22 23:34 Dose: 100 mg Documented By: NR Vital Signs Vital signs: Vital Signs - 8 hr 05/21/22 23:19 05/21/22 23:34 05/21/22 23:00 Pulse Rate 77 107 H Respiratory Rate Blood Pressure 128/76 128/78 128/76 Pulse Oximetry 05/21/22 23:00 05/22/22 00:21 05/22/22 00:30 Pulse Rate 107 H 107 H 105 H Respiratory Rate 17 Blood Pressure Pulse Oximetry 94 91 96 05/22/22 00:31 05/22/22 00:31 Pulse Rate 105 H Respiratory Rate 15 Blood Pressure 128/81 Pulse Oximetry 96 MDM - Recheck/Abnormal Lab/Rx MDM Narrative Medical decision making narrative: Patient with reassuring history and physical exam. I told him I was not interested nor comfortable in prescribing him benzos given his history of abuse. We talked at length about refilling his other medications in the short term but for long-term he would need to contact his primary care provider. We did discuss whether not he may be interested in a social work consult and at this time he is not interested Discharge Plan Departure Patient Disposition: Home Clinical Impression: Anxiety, Medically noncompliant Activity Restrictions/Additional Instructions: *You have been diagnosed with [anxiety and medical noncompliance ] *What to do: *Please continue to take your regular medications as directed. [ x] New medication prescriptions sent to your pharmacy: [[facility] ] [ ] New medication written as a paper prescription [ ] No new medications given *Please follow up with your primary care provider in 2-3 days, call for an appointment. Let them know you were seen in the Emergency Department and that we ask that you be seen in follow up. We will electronically transmit a record of today's note if your PCP is in our system *If you do not have a primary care provider please contact the [facility] Resource line at [phone]. They will ask some questions about your medical history and help get you set up with a doctor in the community. *Return to Emergency Department if you should have any new, worsening or concerning symptoms, such as [fever greater than 101 F, shaking chills, worsening pain, persistent vomiting or other bothersome symptoms] Prescriptions: New clonidine HCl 0.1 mg tablet 0.1 mg PO BID PRN (Reason: hypertensive emergency) Qty: 7 0RF losartan 100 mg tablet 100 mg PO DAILY Qty: 30 0RF hydroxyzine HCl 50 mg tablet 50 mg PO TID PRN (Reason: nausea and vomiting) Qty: 10 0RF No Action lorazepam 1 mg Tablet 1 mg PO BID PRN (Reason: Anxiety) losartan 50 mg tablet 100 mg PO DAILY clonidine HCl 0.1 mg tablet See Rx Instructions .ROUTE .COMPLEX Rx Instructions: 0.1 mg orally hydroxyzine HCl 50 mg tablet 100 mg TID Label Comments: take 1 tablet by mouth twice a day olanzapine 7.5 mg tablet 7.5 mg PO BID levetiracetam 1,000 mg tablet 1,000 mg PO BID Referrals: Aman Wright, [Primary Care Provider] - Visit Report Forms: Patient Portal/API
[2022-05-21] MEDS: hydrOXYzine pamoate 25 MG CAPSULE 100 MG PO (23:18)
[2022-05-21] MEDS: cloNIDine 0.1 MG TABLET PO (23:19)
[2022-05-21] MEDS: LOSARTAN 50 MG TABLET 100 MG PO (23:34)
[2022-05-22 00:21] VITALS: PULSE 107; O2SAT 91
[2022-05-22 00:30] VITALS: PULSE 105; O2SAT 96
[2022-05-22 00:31] VITALS: BP 128/81; PULSE 105; RESP 15; O2SAT 96
== END 2022-05-22 00:58 | disposition home or self-care (01) ==
PROVIDERS: Emergency Provider Emergency Medicine; PCP Family Medicine
DX: F41.9 Anxiety disorder, unspecified (principal); Z91.19 Patient's noncompliance with other medical treatment and regimen; R00.2 Palpitations; F10.129 Alcohol abuse with intoxication, unspecified; Y90.6 Blood alcohol level of 120-199 mg/100 ml; R07.9 Chest pain, unspecified
CPT/HCPCS: 36415; 71045; 80053; 82550; 82553; 83690; 83735; 84484; 85025; 96365; 96366; 96375; 96376; 99283; 99284; J2405; J2560

== ENCOUNTER 2022-05-22 02:20 | Emergency (ER) | payer OTHER, MEDICAID, SELFPAY ==
[2021-07-09 05:48] VITALS: BMI 23.7
[2022-05-22] VITALS (12 sets, daily range): BP systolic 107–136; BP diastolic 69–87; PULSE 75–114; RESP 12–20; TEMP 36.9; O2SAT 91–96; BMI 27.8
--- NOTE | 2022-05-22 02:33 | ED.PSYCH ---
HPI - Psych <Phoenix Ortiz, DO - Last Filed: 05/23/22 04:20> General Chief Complaint: Psychiatric Symptoms Stated Complaint: Anxiety Time Seen by Provider: 05/22/22 02:33 Source: patient and EMS Mode of arrival: Ambulatory History of Present Illness HPI Narrative: 32-year-old male smoker with extensive history of alcohol abuse, anxiety, benzodiazepine abuse presents for the 3rd time this shift and the for time overall in the past 24 hours. He had just been discharged after complete evaluation of workup and had walked down the street and began feeling anxious again at which point he called EMS. He has a mild headache and some nausea as well as palpitations. He denies any auditory or visual hallucinations. He states that he is willing to stay this time with lab evaluation, treatment for possible early withdrawals and [employer] referral. He denies any homicidal or suicidal ideation. He is asking for a prescription of Ativan or Librium and wants to just leave, I told him I was not comfortable with this given his history of abusing these medications, and frequent acts of no jenny Related Data Home Medications Medication Instructions Recorded Confirmed clonidine HCl 0.1 mg tablet See Rx Instructions .Route .COMPLEX 02/16/22 05/21/22 hydroxyzine HCl 50 mg tablet 100 mg TID 02/16/22 05/21/22 levetiracetam 1,000 mg tablet 1,000 mg PO BID 02/16/22 02/16/22 losartan 50 mg tablet 100 mg PO DAILY 02/16/22 05/21/22 olanzapine 7.5 mg tablet 7.5 mg PO BID 02/16/22 02/16/22 lorazepam 1 mg tablet 1 mg PO BID PRN Anxiety 05/21/22 05/21/22 Previous Rx's Medication Instructions Recorded clonidine HCl 0.1 mg tablet 0.1 mg PO BID PRN hypertensive 05/22/22 emergency #7 tabs hydroxyzine HCl 50 mg tablet 50 mg PO TID PRN nausea and 05/22/22 vomiting #10 tabs losartan 100 mg tablet 100 mg PO DAILY #30 tabs 05/22/22 Allergies Allergy/AdvReac Type Severity Reaction Status Date / Time cephalexin Allergy Verified 05/22/22 02:26 marijuana (cannabis) Allergy Verified 05/22/22 02:26 [marijuana] ssri Allergy Uncoded 05/21/22 17:21 Review of Systems <Phoenix Ortiz DO - Last Filed: 05/23/22 04:20> Review of Systems Narrative: GENERAL: See HPI HEENT: Denies sinus pain, ear pain, sore throat, difficulty swallowing, dizziness. RESPIRATORY: Denies dyspnea, cough, wheezing, hemoptysis, sputum. CARDIOVASCULAR: Denies chest pain, palpitations, orthopnea, edema, GASTROINTESTINAL: Denies nausea, vomiting, abdominal pain, diarrhea, constipation, melena. : Denies dysuria, frequency, incontinence, hematuria, urinary retention. MUSCULOSKELETAL: denies weakness, joint pain, or bony pain SKIN: Denies rash, skin lesions, or other NEUROLOGIC: Denies weakness, headache, numbness, change in speech, confusion, seizures, incoordination. PSYCHIATRIC: See HPI 12 point review of systems is negative except for those stated above Patient History <Phoenix Ortiz DO - Last Filed: 05/23/22 04:20> Medical History Alcohol abuse COVID-19 Hypertension Lip laceration Surgical History No history of previous surgery Family History Other First degree relatives alive and well Social History household members: none Smoking Status: Current every day smoker Smoking Status: Current every day smoker tobacco type: cigarettes alcohol intake frequency: 3 or more drinks per day Alcohol type: hard liquor Substance Use Type: does not use Exam <Phoenix Ortiz DO - Last Filed: 05/23/22 04:20> Narrative Exam Narrative: GENERAL: [32] year old patient appears stated age. Well-developed patient, in mild distress. A bit visibly agitated and anxious HEAD: Atraumatic. Normocephalic. EYES: Pupils equal round and reactive. Extraocular motions intact. No scleral icterus. No injection or drainage. ENT: Nose without bleeding, purulent drainage. Throat without erythema, tonsillar hypertrophy or exudate. Airway patent. NECK: Trachea midline. Non tender CARDIOVASCULAR: Tachycardic but regular rhythm without murmurs, gallops, or rubs. RESPIRATORY: Clear to auscultation. Breath sounds equal bilaterally. No wheezes, rales, or rhonchi. GASTROINTESTINAL: Abdomen soft, non-tender, nondistended. EXTREMITIES: No edema or joint tenderness. BACK: Nontender without deformity or crepitance. No flank tenderness. NEURO: AOx3. SKIN: No rash or erythema of visible areas Initial Vital Signs Initial Vital Signs: Vital Signs Temperature 98.4 F 05/22/22 02:21 Pulse Rate 114 H 05/22/22 02:21 Respiratory Rate 20 05/22/22 02:21 Blood Pressure 118/74 05/22/22 02:21 Pulse Oximetry 96 05/22/22 02:21 Oxygen Delivery Method 05/22/22 02:21 <Lynne Lagos DO - Last Filed: 05/22/22 14:42> Initial Vital Signs Initial Vital Signs: Vital Signs Temperature 98.4 F 05/22/22 02:21 Pulse Rate 114 H 05/22/22 02:21 Respiratory Rate 20 05/22/22 02:21 Blood Pressure 118/74 05/22/22 02:21 Pulse Oximetry 96 05/22/22 02:21 Oxygen Delivery Method 05/22/22 02:21 Course <Phoenix Ortiz DO - Last Filed: 05/23/22 04:20> Orders Ordered: Discontinued Medications Hydroxyzine Pamoate (Hydroxyzine Pamoate 25 Mg Capsule) 25 mg PO NOW ONE Stop: 05/22/22 10:10 Last Admin: 05/22/22 10:24 Dose: 25 mg Documented By: ISELA Sodium Chloride (Normal Saline 0.9%) 1,000 mls @ 1,000 mls/hr IV BOLUS ONE Stop: 05/22/22 03:41 Last Infusion: 05/22/22 05:07 Dose: 0 mls/hr Documented By: Admin: 05/22/22 03:01 Dose: 1,000 mls/hr Documented By: HELADIO Thiamine HCl 200 mg/ Sodium (Chloride) 102 mls @ 408 mls/hr IV NOW ONE Stop: 05/22/22 02:43 Last Infusion: 05/22/22 05:07 Dose: 0 mls/hr Documented By: Admin: 05/22/22 03:02 Dose: 408 mls/hr Documented By: HELADIO Nicotine (Nicotine 21 Mg Patch) 21 mg TOP NOW ONE Stop: 05/22/22 10:30 Last Admin: 05/22/22 10:38 Dose: 21 mg Documented By: ROSITA Ondansetron HCl (Ondansetron 4 Mg/2 Ml Inj) 4 mg IV NOW ONE Stop: 05/22/22 10:09 Last Admin: 05/22/22 10:24 Dose: 4 mg Documented By: ISELA Phenobarbital (Phenobarbital 65 Mg/Ml Vial) 260 mg IV NOW ONE Stop: 05/22/22 02:43 Last Admin: 05/22/22 03:01 Dose: 260 mg Documented By: HELADIO Phenobarbital (Phenobarbital 65 Mg/Ml Vial) 260 mg IV NOW ONE Stop: 05/22/22 10:09 Last Admin: 05/22/22 10:24 Dose: 260 mg Documented By: ISELA Reevaluation(s) Reevaluation #1: Patient responds quite well to phenobarb and is resting comfortably, heart rate has come down from the 1 15 and 120s into the mid 80s. Vital Signs Vital signs: Vital Signs - 8 hr 05/22/22 07:36 05/22/22 09:14 05/22/22 10:41 Pulse Rate 83 75 96 H Respiratory Rate 14 14 14 Blood Pressure 122/78 122/78 136/80 Pulse Oximetry 94 94 94 Oxygen Delivery Method Room Air Room Air Room Air 05/22/22 11:33 05/22/22 13:14 Pulse Rate 102 H 108 H Respiratory Rate 12 Blood Pressure 131/87 131/82 Pulse Oximetry 94 96 Oxygen Delivery Method Room Air Room Air <Lynne Lagos, - Last Filed: 05/22/22 14:42> Orders Ordered: Discontinued Medications Hydroxyzine Pamoate (Hydroxyzine Pamoate 25 Mg Capsule) 25 mg PO NOW ONE Stop: 05/22/22 10:10 Last Admin: 05/22/22 10:24 Dose: 25 mg Documented By: ISELA Sodium Chloride (Normal Saline 0.9%) 1,000 mls @ 1,000 mls/hr IV BOLUS ONE Stop: 05/22/22 03:41 Last Infusion: 05/22/22 05:07 Dose: 0 mls/hr Documented By: Admin: 05/22/22 03:01 Dose: 1,000 mls/hr Documented By: HELADIO Thiamine HCl 200 mg/ Sodium (Chloride) 102 mls @ 408 mls/hr IV NOW ONE Stop: 05/22/22 02:43 Last Infusion: 05/22/22 05:07 Dose: 0 mls/hr Documented By: Admin: 05/22/22 03:02 Dose: 408 mls/hr Documented By: HELADIO Nicotine (Nicotine 21 Mg Patch) 21 mg TOP NOW ONE Stop: 05/22/22 10:30 Last Admin: 05/22/22 10:38 Dose: 21 mg Documented By: ROSITA Ondansetron HCl (Ondansetron 4 Mg/2 Ml Inj) 4 mg IV NOW ONE Stop: 05/22/22 10:09 Last Admin: 05/22/22 10:24 Dose: 4 mg Documented By: ISELA Phenobarbital (Phenobarbital 65 Mg/Ml Vial) 260 mg IV NOW ONE Stop: 05/22/22 02:43 Last Admin: 05/22/22 03:01 Dose: 260 mg Documented By: HELADIO Phenobarbital (Phenobarbital 65 Mg/Ml Vial) 260 mg IV NOW ONE Stop: 05/22/22 10:09 Last Admin: 05/22/22 10:24 Dose: 260 mg Documented By: ISELA Vital Signs Vital signs: Vital Signs - 8 hr 05/22/22 07:36 05/22/22 09:14 05/22/22 10:41 Pulse Rate 83 75 96 H Respiratory Rate 14 14 14 Blood Pressure 122/78 122/78 136/80 Pulse Oximetry 94 94 94 Oxygen Delivery Method Room Air Room Air Room Air 05/22/22 11:33 05/22/22 13:14 Pulse Rate 102 H 108 H Respiratory Rate 12 Blood Pressure 131/87 131/82 Pulse Oximetry 94 96 Oxygen Delivery Method Room Air Room Air MDM - Psych <Phoenix Ortiz, - Last Filed: 05/23/22 04:20> Lab Data Result diagrams: 05/22/22 03:00 05/22/22 03:00 Labs: Lab Results 05/22/22 05/22/22 05/22/22 Range/Units 03:00 03:00 03:00 WBC 7.3 (4.5-11.0) X10^3/uL RBC 3.93 L (4.5-5.9) X10^6/uL Hgb 11.9 L (13.5-17.5) g/dL Hct 33.9 L (41-53) % MCV 86.3 (80-100) fL MCH 30.3 (26-34) PG MCHC 35.1 (30-36) % RDW 14.3 (11.6-14.8) % Plt Count 264 (150-400) X10^3/uL Neut % (Auto) 54.3 (50-75) % Lymph % (Auto) 33.6 (25-40) % [place] % (Auto) 10.4 (3-14) % Eos % (Auto) 1.0 L (2-4) % Baso % (Auto) 0.7 (0-2) % Neut # (Auto) 3900 (4189-5152) /uL Lymph # (Auto) 2400 (5268-6847) /uL [place] # (Auto) 800 (0-900) /uL Eos # (Auto) 100 (0-450) /uL Baso # (Auto) 100 (0-100) /uL Sodium 141 (137-145) mmol/L Potassium 3.3 L (3.4-5.1) mmol/L Chloride 102 (98-107) mmol/L Carbon Dioxide 23 (22-32) mmol/L BUN 10 (9-20) mg/dL Creatinine 0.66 (0.66-1.25) mg/dL Estimated GFR > 60 (>60) mL/min BUN/Creatinine Ratio 15.2 (6-22) Glucose 102 H (70-100) mg/dL Calcium 8.7 (8.4-10.2) mg/dL Magnesium 1.8 (1.6-2.3) mg/dL Total Bilirubin 0.5 (0.2-1.3) mg/dL AST 63 H (17-59) IU/L ALT 46 (<50) IU/L Alkaline Phosphatase 79 (38-126) U/L Total Protein 7.3 (6.3-8.2) g/dL Albumin 4.3 (3.5-5.0) g/dL Globulin 3.0 (1.7-4.1) g/dL Albumin/Globulin Ratio 1.4 (1.0-2.8) Ethyl Alcohol 156 H ( - 10) mg/dL <Lynne Lagos, DO - Last Filed: 05/22/22 14:42> Lab Data Labs: Lab Results 05/22/22 05/22/22 05/22/22 Range/Units 03:00 03:00 03:00 WBC 7.3 (4.5-11.0) X10^3/uL RBC 3.93 L (4.5-5.9) X10^6/uL Hgb 11.9 L (13.5-17.5) g/dL Hct 33.9 L (41-53) % MCV 86.3 (80-100) fL MCH 30.3 (26-34) PG MCHC 35.1 (30-36) % RDW 14.3 (11.6-14.8) % Plt Count 264 (150-400) X10^3/uL Neut % (Auto) 54.3 (50-75) % Lymph % (Auto) 33.6 (25-40) % [place] % (Auto) 10.4 (3-14) % Eos % (Auto) 1.0 L (2-4) % Baso % (Auto) 0.7 (0-2) % Neut # (Auto) 3900 (2348-1917) /uL Lymph # (Auto) 2400 (7917-9861) /uL [place] # (Auto) 800 (0-900) /uL Eos # (Auto) 100 (0-450) /uL Baso # (Auto) 100 (0-100) /uL Sodium 141 (137-145) mmol/L Potassium 3.3 L (3.4-5.1) mmol/L Chloride 102 (98-107) mmol/L Carbon Dioxide 23 (22-32) mmol/L BUN 10 (9-20) mg/dL Creatinine 0.66 (0.66-1.25) mg/dL Estimated GFR > 60 (>60) mL/min BUN/Creatinine Ratio 15.2 (6-22) Glucose 102 H (70-100) mg/dL Calcium 8.7 (8.4-10.2) mg/dL Magnesium 1.8 (1.6-2.3) mg/dL Total Bilirubin 0.5 (0.2-1.3) mg/dL AST 63 H (17-59) IU/L ALT 46 (<50) IU/L Alkaline Phosphatase 79 (38-126) U/L Total Protein 7.3 (6.3-8.2) g/dL Albumin 4.3 (3.5-5.0) g/dL Globulin 3.0 (1.7-4.1) g/dL Albumin/Globulin Ratio 1.4 (1.0-2.8) Ethyl Alcohol 156 H ( - 10) mg/dL [facility] Narrative Medical decision making narrative: Patient signed out to me by Dr. Ortiz. At seen evaluated patient myself. Is low anxious he got more phenobarbital and hydroxyzine. He actually was [place] [facility] in February of 2022. He said he went to long-term treatment and should heal is and then went to [place]. He changed his location so that he could stay sober he has a sober house in [place] he got a new job as he had a come back here so that he could get his truck he also has a court date. Unfortunately he started drinking 2 days ago he is extremely remorseful is not feel like he needs treatment again. He has a court date tomorrow which he would like to make. Patient had he mixed up his medications or did not get his hydroxyzine and clonidine when we left. So he started drinking instead. At this time he feels ready and able to go. He does not need any medications they are waiting for him at the pharmacy he got it refilled. Discharge Plan Departure Patient Disposition: Home Clinical Impression: Alcoholic intoxication Instructions: Alcohol and Stress: There are Safer Ways to [place] Activity Restrictions/Additional Instructions: *You have been diagnosed with alcohol intoxication *What to do: At this time please follow your sobriety steps is. States alcohol. *Continue to take medications as directed *Follow up with your primary care provider in 2-3 days or call [phone] *Return to ER if you should have any new, worsening or concerning symptoms Prescriptions: No Action lorazepam 1 mg Tablet 1 mg PO BID PRN (Reason: Anxiety) losartan 50 mg tablet 100 mg PO DAILY clonidine HCl 0.1 mg tablet See Rx Instructions .ROUTE .COMPLEX Rx Instructions: 0.1 mg orally hydroxyzine HCl 50 mg tablet 100 mg TID Label Comments: take 1 tablet by mouth twice a day olanzapine 7.5 mg tablet 7.5 mg PO BID levetiracetam 1,000 mg tablet 1,000 mg PO BID clonidine HCl 0.1 mg tablet 0.1 mg PO BID PRN (Reason: hypertensive emergency) Qty: 7 0RF losartan 100 mg tablet 100 mg PO DAILY Qty: 30 0RF hydroxyzine HCl 50 mg tablet 50 mg PO TID PRN (Reason: nausea and vomiting) Qty: 10 0RF Referrals: Aman Wright DO [Primary Care Provider] - Visit Report Forms: Patient Portal/API
[2022-05-22] MEDS: PHENobarbital 65 MG/ML VIAL 260 MG IV ×2 (03:01→10:24)
[2022-05-22] MEDS: SODIUM CHLORIDE 0.9% 1,000 ML 1000 ML IV (03:01)
[2022-05-22] MEDS: THIAMINE 200 MG in SODIUM CHLORIDE 0.9% 100 ML 408 MG IV (03:02)
[2022-05-22 03:10] LABS: Add Manual Diff / Slide Review NO; Basophils Absolute Auto 100 /uL (0-100); Basophils Percent Auto 0.7 % (0-2); Eosinophils Absolute Auto 100 /uL (0-450); Hematocrit 33.9 % (41-53); Hemoglobin 11.9 g/dL (13.5-17.5); Lymphocytes Absolute Auto 2400 /uL (1100-4500); Lymphocytes Percent Auto 33.6 % (25-40); Mean Corpuscular HGB Conc 35.1 % (30-36); Mean Corpuscular Hemoglobin 30.3 PG (26-34); Mean Corpuscular Volume 86.3 fL (80-100); Monocytes Absolute Auto 800 /uL (0-900); Monocytes Percent Auto 10.4 % (3-14); Neutrophils Absolute Auto 3900 /uL (1500-7000); Neutrophils Percent Auto 54.3 % (50-75); Platelet Count 264 X10^3/uL (150-400); Red Blood Cell Count 3.93 X10^6/uL (4.5-5.9); Red Cell Distribution Width 14.3 % (11.6-14.8); White Blood Cell Count 7.3 X10^3/uL (4.5-11.0)
[2022-05-22 03:21] LABS: Alanine Aminotransferase 46 IU/L (<50); Albumin 4.3 g/dL (3.5-5.0); Albumin Globulin Ratio 1.4 (1.0-2.8); Alkaline Phosphatase 79 U/L (38-126); Aspartate Aminotransferase 63 IU/L (17-59); BUN Creatinine Ratio 15.2 (6-22); Bilirubin Total 0.5 mg/dL (0.2-1.3); Blood Urea Nitrogen 10 mg/dL (9-20); Calcium 8.7 mg/dL (8.4-10.2); Carbon Dioxide 23 mmol/L (22-32); Chloride 102 mmol/L (98-107); Estimated Glomerular Filt Rate > 60 mL/min (>60); Glucose 102 mg/dL (70-100); HEMOLYSIS < 15 (0-50); Magnesium 1.8 mg/dL (1.6-2.3); Potassium 3.3 mmol/L (3.4-5.1); Sodium 141 mmol/L (137-145); Total Protein 7.3 g/dL (6.3-8.2)
[2022-05-22 06:50] LABS: Ethanol (ETOH) 156 mg/dL
--- NOTE | 2022-05-22 07:45 | PC.NURSE ---
patient is awake but drowsy. He reports that whatever medication you gave me, worked. He reports feelings of mild tremors but his hands were steady when holding them out. He also reports some nausea but not feelings that vomit is eminent.
[2022-05-22] MEDS: hydrOXYzine pamoate 25 MG CAPSULE PO (10:24)
[2022-05-22] MEDS: ONDANSETRON 4 MG/2 ML INJ IV (10:24)
[2022-05-22] MEDS: NICOTINE 21 MG PATCH TOP (10:38)
== END 2022-05-22 13:15 | disposition home or self-care (01) ==
PROVIDERS: Emergency Medicine; Emergency Provider Emergency Medicine; PCP Family Medicine
DX: F10.129 Alcohol abuse with intoxication, unspecified (principal); Y90.6 Blood alcohol level of 120-199 mg/100 ml; R00.2 Palpitations
CPT/HCPCS: 36415; 80053; 80320; 83735; 85025; 96361; 96374; 96375; 96376; 99284; J2405; J2560

== ENCOUNTER 2022-11-01 14:33 | Emergency (ER) | payer OTHER, MEDICAID, SELFPAY ==
[2021-07-09 05:48] VITALS: BMI 23.7
[2022-11-01 15:17] VITALS: BP 100/61; PULSE 115; RESP 18; TEMP 36.6; O2SAT 99; BMI 25.0
== END 2022-11-01 18:06 | disposition left against medical advice (07) ==
PROVIDERS: Emergency Provider Emergency Medicine; PCP Family Medicine
DX: F10.239 Alcohol dependence with withdrawal, unspecified (principal)
CPT/HCPCS: 99281

== ENCOUNTER 2022-11-02 00:11 | Emergency (ER) | payer OTHER, MEDICAID, SELFPAY ==
[2021-07-09 05:48] VITALS: BMI 23.7
[2022-11-02] VITALS (31 sets, daily range): BP systolic 106–157; BP diastolic 55–94; PULSE 94–126; RESP 11–30; TEMP 36.2; O2SAT 91–96; BMI 25.7
--- NOTE | 2022-11-02 00:45 | ED_ITS ---
HPI - General Adult General Chief complaint: Toxicology Problem Stated complaint: ETOH WITHDRAW Time Seen by Provider: 11/02/22 00:19 Source: patient Mode of arrival: Ambulatory Limitations: no limitations History of Present Illness HPI narrative: Patient is a 32-year-old male who has a known history of alcohol abuse and alcohol with draws who is here for evaluation of alcohol withdrawals. He states he recently just spent a 21 day inpatient stay. Was released approximately 10 days ago. Started drinking approximately 5 days ago. His last drink was approximately 12 hours ago. He was here in the emergency department earlier in the day but left without being seen. He states he is feeling shaky and nauseou s. He states that phenobarbital and Librium has helped him in the past. He denies chest pain. No shortness of breath. Related Data Home Medications Medication Instructions Recorded Confirmed clonidine HCl 0.1 mg tablet See Rx Instructions .Route .COMPLEX 02/16/22 05/21/22 hydroxyzine HCl 50 mg tablet 100 mg TID 02/16/22 05/21/22 levetiracetam 1,000 mg tablet 1,000 mg PO BID 02/16/22 02/16/22 losartan 50 mg tablet 100 mg PO DAILY 02/16/22 05/21/22 olanzapine 7.5 mg tablet 7.5 mg PO BID 02/16/22 02/16/22 lorazepam 1 mg tablet 1 mg PO BID PRN Anxiety 05/21/22 05/21/22 Previous Rx's Medication Instructions Recorded clonidine HCl 0.1 mg tablet 0.1 mg PO BID PRN hypertensive 05/22/22 emergency #7 tabs hydroxyzine HCl 50 mg tablet 50 mg PO TID PRN nausea and 05/22/22 vomiting #10 tabs losartan 100 mg tablet 100 mg PO DAILY #30 tabs 05/22/22 Allergies Allergy/AdvReac Type Severity Reaction Status Date / Time cephalexin Allergy Verified 11/01/22 15:21 marijuana (cannabis) Allergy Verified 11/01/22 15:21 [marijuana] ssri Allergy Uncoded 05/21/22 17:21 Review of Systems Constitutional Constitutional: Reports system reviewed and no additional complaints, except as documented Cardiovascular Cardiovascular: Reports system reviewed and no additional complaints, except as documented Respiratory Respiratory: Reports system reviewed and no additional complaints, except as documented Gastrointestinal Gastrointestinal: Reports system reviewed and no additional complaints, except as documented Integumentary/Breasts Skin/Breast: Reports system reviewed and no additional complaints, except as documented Psychiatric Psychiatric: Reports system reviewed and no additional complaints, except as documented Hematologic/Lymphatic On Anticoagulants: No Allergic/Immunologic Allergic/Immunologic: Reports system reviewed and no additional complaints, except as documented Patient History Medical History Alcohol abuse COVID-19 Hypertension Lip laceration Surgical History No history of previous surgery Family History Other First degree relatives alive and well Social History household members: none Smoking Status: Current every day smoker Smoking Status: Current every day smoker tobacco type: cigarettes alcohol intake frequency: 3 or more drinks per day Alcohol type: hard liquor Substance Use Type: does not use Exam Initial Vital Signs Initial Vital Signs: Vital Signs Temperature 97.1 F L 11/02/22 00:15 Pulse Rate 126 H 11/02/22 00:15 Respiratory Rate 18 11/02/22 00:15 Blood Pressure 138/90 11/02/22 00:15 Pulse Oximetry 96 11/02/22 00:15 Oxygen Delivery Method 11/02/22 00:15 Const General: cooperative and comfortable HENMT Head: normal to inspection and normocephalic Resp Effort & Inspection: normal respiratory effort Auscultation: clear to auscultation bilaterally Cardio Rate: regular rate Rhythm: regular rhythm GI Inspection: normal to inspection Neuro General: patient alert, patient awake, patient oriented x3 and moves all extremities Extrem General: normal to inspection and capillary refill normal Psych Appearance: grossly normal, well kempt and not disheveled Course Orders Ordered: ED Orders 11/02/22 00:34 Consult to Fleet Operations Manager Stat 11/02/22 00:45 Complete Blood Count AUTO DIFF Stat Comprehensive Metabolic Panel Stat Ethanol (ETOH) Stat Lipase Stat Discontinued Medications Ondansetron HCl (Ondansetron 4 Mg/2 Ml Inj) 4 mg IV NOW ONE Stop: 11/02/22 01:21 Last Admin: 11/02/22 01:25 Dose: 4 mg Documented By: NEVA Phenobarbital (Phenobarbital 65 Mg/Ml Vial) 260 mg IV NOW ONE Stop: 11/02/22 00:46 Last Admin: 11/02/22 00:55 Dose: 260 mg Documented By: JENNIFER Trazodone HCl (Trazodone 50 Mg Tablet) 25 mg PO NOW ONE Stop: 11/02/22 04:02 Last Admin: 11/02/22 04:09 Dose: 25 mg Documented By: AP Vital Signs Vital signs: Vital Signs - 8 hr 11/02/22 00:15 11/02/22 00:50 11/02/22 00:50 Temperature 97.1 F L Pulse Rate 126 H 110 H Respiratory Rate 18 Blood Pressure 138/90 123/84 Pulse Oximetry 96 93 Oxygen Delivery Method Room Air 11/02/22 01:00 11/02/22 01:30 11/02/22 02:00 Temperature Pulse Rate 110 H 108 H 112 H Respiratory Rate Blood Pressure Pulse Oximetry 91 92 92 Oxygen Delivery Method 11/02/22 02:30 11/02/22 02:38 11/02/22 02:38 Temperature Pulse Rate 109 H 108 H Respiratory Rate Blood Pressure 116/72 Pulse Oximetry 92 92 Oxygen Delivery Method 11/02/22 03:00 11/02/22 03:00 11/02/22 03:30 Temperature Pulse Rate 114 H 102 H Respiratory Rate Blood Pressure 117/70 Pulse Oximetry 91 94 Oxygen Delivery Method 11/02/22 04:00 11/02/22 04:11 11/02/22 04:11 Temperature Pulse Rate 119 H 111 H Respiratory Rate Blood Pressure 136/83 Pulse Oximetry 95 96 Oxygen Delivery Method 11/02/22 04:30 11/02/22 05:00 11/02/22 05:00 Temperature Pulse Rate 109 H 105 H Respiratory Rate Blood Pressure 123/66 Pulse Oximetry 96 95 Oxygen Delivery Method 11/02/22 05:30 11/02/22 06:00 11/02/22 06:00 Temperature Pulse Rate 102 H 98 H Respiratory Rate Blood Pressure 106/55 L Pulse Oximetry 96 96 Oxygen Delivery Method Medical Decision Making Lab Data Result diagrams: 11/02/22 00:45 11/02/22 00:45 Labs: Lab Results 11/02/22 11/02/22 Range/Units 00:45 00:45 WBC 8.0 (4.5-11.0) X10^3/uL RBC 4.68 (4.5-5.9) X10^6/uL Hgb 13.7 (13.5-17.5) g/dL Hct 41.4 (41-53) % MCV 88.6 (80-100) fL MCH 29.3 (26-34) PG MCHC 33.1 (30-36) % RDW 16.3 H (11.6-14.8) % Plt Count 360 (150-400) X10^3/uL Neut % (Auto) 42.9 L (50-75) % Lymph % (Auto) 48.1 H (25-40) % [place] % (Auto) 3.6 (3-14) % Eos % (Auto) 3.3 (2-4) % Baso % (Auto) 2.1 H (0-2) % Neut # (Auto) 3400 (7123-9820) /uL Lymph # (Auto) 3900 (8653-6809) /uL [place] # (Auto) 300 (0-900) /uL Eos # (Auto) 300 (0-450) /uL Baso # (Auto) 200 H (0-100) /uL Sodium 143 (137-145) mmol/L Potassium 4.2 (3.4-5.1) mmol/L Chloride 105 (98-107) mmol/L Carbon Dioxide 23 (22-32) mmol/L BUN 21 H (9-20) mg/dL Creatinine 0.90 (0.66-1.25) mg/dL Estimated GFR > 60 (>60) mL/min BUN/Creatinine Ratio 23.3 H (6-22) Glucose 104 H (70-100) mg/dL Calcium 9.0 (8.4-10.2) mg/dL Total Bilirubin 0.3 (0.2-1.3) mg/dL AST 36 (17-59) IU/L ALT 39 (<50) IU/L Alkaline Phosphatase 80 (38-126) U/L Total Protein 8.6 H (6.3-8.2) g/dL Albumin 4.9 (3.5-5.0) g/dL Globulin 3.7 (1.7-4.1) g/dL Albumin/Globulin Ratio 1.3 (1.0-2.8) Lipase 88 (23-300) U/L Ethyl Alcohol 217 H ( - 10) mg/dL [facility] Narrative Medical decision making narrative: Patient arrived stating would like help with his issues with alcohol. He states he was seeking detox. He has withdrawn from alcohol in the past. Was given phenobarbital. He was given trazodone to help him sleep. He is had no indication of withdrawals or seizures. Does have an elevated alcohol level which is not surprising giving his stated history. Social work consult is placed. Care turned over to day provider to observe until patient becomes clinically sober and disposition can be made. Discharge Plan Departure Prescriptions: No Action lorazepam 1 mg Tablet 1 mg PO BID PRN (Reason: Anxiety) losartan 50 mg tablet 100 mg PO DAILY clonidine HCl 0.1 mg tablet See Rx Instructions .ROUTE .COMPLEX Rx Instructions: 0.1 mg orally hydroxyzine HCl 50 mg tablet 100 mg TID Label Comments: take 1 tablet by mouth twice a day olanzapine 7.5 mg tablet 7.5 mg PO BID levetiracetam 1,000 mg tablet 1,000 mg PO BID clonidine HCl 0.1 mg tablet 0.1 mg PO BID PRN (Reason: hypertensive emergency) Qty: 7 0RF losartan 100 mg tablet 100 mg PO DAILY Qty: 30 0RF hydroxyzine HCl 50 mg tablet 50 mg PO TID PRN (Reason: nausea and vomiting) Qty: 10 0RF Referrals: Aman Wright DO [Primary Care Provider] -
[2022-11-02] MEDS: PHENobarbital 65 MG/ML VIAL 260 MG IV (00:55)
[2022-11-02 01:06] LABS: Add Manual Diff / Slide Review NO; Basophils Absolute Auto 200 /uL (0-100); Basophils Percent Auto 2.1 % (0-2); Eosinophils Absolute Auto 300 /uL (0-450); Eosinophils Percent Auto 3.3 % (2-4); Hematocrit 41.4 % (41-53); Hemoglobin 13.7 g/dL (13.5-17.5); Lymphocytes Absolute Auto 3900 /uL (1100-4500); Lymphocytes Percent Auto 48.1 % (25-40); Mean Corpuscular HGB Conc 33.1 % (30-36); Mean Corpuscular Hemoglobin 29.3 PG (26-34); Mean Corpuscular Volume 88.6 fL (80-100); Monocytes Absolute Auto 300 /uL (0-900); Monocytes Percent Auto 3.6 % (3-14); Neutrophils Absolute Auto 3400 /uL (1500-7000); Neutrophils Percent Auto 42.9 % (50-75); Platelet Count 360 X10^3/uL (150-400); Red Blood Cell Count 4.68 X10^6/uL (4.5-5.9); Red Cell Distribution Width 16.3 % (11.6-14.8)
[2022-11-02 01:11] LABS: Alanine Aminotransferase 39 IU/L (<50); Albumin 4.9 g/dL (3.5-5.0); Albumin Globulin Ratio 1.3 (1.0-2.8); Alkaline Phosphatase 80 U/L (38-126); Aspartate Aminotransferase 36 IU/L (17-59); BUN Creatinine Ratio 23.3 (6-22); Bilirubin Total 0.3 mg/dL (0.2-1.3); Blood Urea Nitrogen 21 mg/dL (9-20); Carbon Dioxide 23 mmol/L (22-32); Chloride 105 mmol/L (98-107); Estimated Glomerular Filt Rate > 60 mL/min (>60); Ethanol (ETOH) 217 mg/dL; Globulin 3.7 g/dL (1.7-4.1); Glucose 104 mg/dL (70-100); HEMOLYSIS < 15 (0-50); Lipase 88 U/L (23-300); Potassium 4.2 mmol/L (3.4-5.1); Sodium 143 mmol/L (137-145); Total Protein 8.6 g/dL (6.3-8.2)
[2022-11-02] MEDS: ONDANSETRON 4 MG/2 ML INJ IV ×2 (01:25→09:12)
[2022-11-02] MEDS: TRAZODONE 50 MG TABLET 25 MG PO (04:09)
[2022-11-02] MEDS: PHENobarbital 65 MG/ML VIAL 130 MG IV (08:52)
[2022-11-02] MEDS: levETIRAcetam 250 MG TABLET 1000 MG PO (08:52)
[2022-11-02] MEDS: LOSARTAN 25 MG TABLET 100 MG PO (09:11)
[2022-11-02] MEDS: LORazepam 2 MG/ML INJ IV (10:44)
== END 2022-11-02 10:53 | disposition home or self-care (01) ==
PROVIDERS: Emergency Medicine; Emergency Provider Emergency Medicine; PCP Family Medicine
DX: F10.139 Alcohol abuse with withdrawal, unspecified (principal); Y90.8 Blood alcohol level of 240 mg/100 ml or more; Z20.822 Contact with and (suspected) exposure to COVID-19
CPT/HCPCS: 36415; 80053; 80320; 80329; 83690; 84439; 84443; 85025; 87635; 96374; 96375; 96376; 99284; C9803; G0480; J2060; J2405; J2560

== ENCOUNTER 2022-11-02 16:10 | Emergency (ER) | payer OTHER, MEDICAID, SELFPAY ==
[2021-07-09 05:48] VITALS: BMI 23.7
[2022-11-02] VITALS (14 sets, daily range): BP systolic 91–116; BP diastolic 50–69; PULSE 89–115; RESP 12–21; TEMP 36.6; O2SAT 94–99; BMI 25.7
[2022-11-02 19:00] LABS: Add Manual Diff / Slide Review NO; Basophils Absolute Auto 100 /uL (0-100); Basophils Percent Auto 0.7 % (0-2); Eosinophils Absolute Auto 100 /uL (0-450); Eosinophils Percent Auto 0.9 % (2-4); Hemoglobin 13.5 g/dL (13.5-17.5); Lymphocytes Absolute Auto 3800 /uL (1100-4500); Mean Corpuscular HGB Conc 33.1 % (30-36); Mean Corpuscular Hemoglobin 29.5 PG (26-34); Monocytes Absolute Auto 600 /uL (0-900); Monocytes Percent Auto 4.9 % (3-14); Neutrophils Absolute Auto 7800 /uL (1500-7000); Neutrophils Percent Auto 62.5 % (50-75); Platelet Count 312 X10^3/uL (150-400); Red Cell Distribution Width 16.3 % (11.6-14.8); White Blood Cell Count 12.4 X10^3/uL (4.5-11.0)
[2022-11-02 19:08] LABS: Acetaminophen < 10 ug/mL (10-30); Alanine Aminotransferase 34 IU/L (<50); Albumin 4.9 g/dL (3.5-5.0); Albumin Globulin Ratio 1.3 (1.0-2.8); Alkaline Phosphatase 74 U/L (38-126); Aspartate Aminotransferase 37 IU/L (17-59); BUN Creatinine Ratio 21.8 (6-22); Bilirubin Total 0.4 mg/dL (0.2-1.3); Blood Urea Nitrogen 17 mg/dL (9-20); Calcium 9.2 mg/dL (8.4-10.2); Carbon Dioxide 22 mmol/L (22-32); Chloride 100 mmol/L (98-107); Estimated Glomerular Filt Rate > 60 mL/min (>60); Ethanol (ETOH) 281 mg/dL; Globulin 3.7 g/dL (1.7-4.1); Glucose 101 mg/dL (70-100); HEMOLYSIS 30 (0-50); Potassium 3.9 mmol/L (3.4-5.1); Salicylate < 1.0 mg/dL (<20); Sodium 141 mmol/L (137-145); Total Protein 8.6 g/dL (6.3-8.2)
--- NOTE | 2022-11-02 19:12 | ED_ITS ---
HPI - Alcohol General Chief Complaint: Toxicology Problem Stated Complaint: alcohol withdrawal Time Seen by Provider: 11/02/22 17:38 Source: patient Mode of arrival: Ambulatory History of Present Illness HPI narrative: 32-year-old male with heavy alcohol history known well to myself and facility presents for evaluation. He was seen and evaluated yesterday requesting help with alcohol detox and general anxiety. He had been sober for 107 days and recently relapsed drinking as much as a 5th of vodka per day. He is doing outpatient detox that is overseen by fany and states they know he relapsed. He was evaluated, given phenobarb and then Ativan, his Keppra was refilled and he was given a prescription for an Ativan taper, which had been sent to the pharmacy on [facility] where he lives. 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 He started feeling shaky and went back to drinking. Related Data Home Medications Medication Instructions Recorded Confirmed hydroxyzine HCl 50 mg tablet 100 mg TID 02/16/22 11/02/22 levetiracetam 1,000 mg tablet 1,000 mg PO BID 02/16/22 11/02/22 losartan 50 mg tablet 100 mg PO DAILY 02/16/22 11/02/22 olanzapine 7.5 mg tablet 7.5 mg PO BID 02/16/22 11/02/22 lorazepam 1 mg tablet 1 mg PO BID PRN Anxiety 05/21/22 11/02/22 acamprosate 333 mg tablet,delayed 666 mg PO TID 11/02/22 11/02/22 release Previous Rx's Medication Instructions Recorded clonidine HCl 0.1 mg tablet 0.1 mg PO BID PRN hypertensive 05/22/22 emergency #7 tabs lorazepam 1 mg tablet (Ativan) 1 mg PO TID PRN alcohol withdrawal 11/02/22 #10 tabs Allergies Allergy/AdvReac Type Severity Reaction Status Date / Time cephalexin Allergy Verified 11/01/22 15:21 marijuana (cannabis) Allergy Verified 11/01/22 15:21 [marijuana] ssri Allergy Uncoded 05/21/22 17:21 Review of Systems Review of Systems Narrative: GENERAL: Denies chills, fatigue, malaise, fever, sweats. HEENT: Denies sinus pain, ear pain, sore throat, difficulty swallowing, dizziness. RESPIRATORY: Denies dyspnea, cough, wheezing, hemoptysis, sputum. CARDIOVASCULAR: Denies chest pain, palpitations, orthopnea, edema, GASTROINTESTINAL: Denies nausea, vomiting, abdominal pain, diarrhea, constipation, melena. : Denies dysuria, frequency, incontinence, hematuria, urinary retention. MUSCULOSKELETAL: denies weakness, joint pain, or bony pain SKIN: Denies rash, skin lesions, or other NEUROLOGIC: Denies weakness, headache, numbness, change in speech, confusion, seizures, incoordination. PSYCHIATRIC: See HPI 12 point review of systems is negative except for those stated above Patient History Medical History Alcohol abuse COVID-19 Hypertension Lip laceration Surgical History No history of previous surgery Family History Other First degree relatives alive and well Social History household members: none Smoking Status: Current every day smoker Smoking Status: Current every day smoker tobacco type: cigarettes alcohol intake frequency: 3 or more drinks per day Alcohol type: hard liquor Substance Use Type: does not use Exam Narrative Exam Narrative: GENERAL: [32] year old patient appears stated age. Well-developed patient, in mild distress. HEAD: Atraumatic. Normocephalic. EYES: Pupils equal round and reactive. Extraocular motions intact. No scleral icterus. No injection or drainage. ENT: Nose without bleeding, purulent drainage. Throat without erythema, tonsillar hypertrophy or exudate. Airway patent. NECK: Trachea midline. Non tender CARDIOVASCULAR: Regular rate and rhythm without murmurs, gallops, or rubs. RESPIRATORY: Clear to auscultation. Breath sounds equal bilaterally. No wheezes, rales, or rhonchi. GASTROINTESTINAL: Abdomen soft, non-tender, nondistended. EXTREMITIES: No edema or joint tenderness. BACK: Nontender without deformity or crepitance. No flank tenderness. NEURO: AOx3. SKIN: No rash or erythema of visible areas Initial Vital Signs Initial Vital Signs: Vital Signs Temperature 97.8 F 11/02/22 16:13 Pulse Rate 115 H 11/02/22 16:13 Respiratory Rate 18 11/02/22 16:13 Blood Pressure 116/68 11/02/22 16:13 Pulse Oximetry 97 11/02/22 16:13 Oxygen Delivery Method 11/02/22 16:13 Course Orders Ordered: Discontinued Medications Phenobarbital (Phenobarbital 65 Mg/Ml Vial) 260 mg IV NOW ONE Stop: 11/03/22 05:32 Last Admin: 11/03/22 05:52 Dose: 260 mg Vital Signs Vital signs: Vital Signs - 8 hr 11/02/22 22:30 11/02/22 22:30 11/02/22 23:00 Pulse Rate 89 Respiratory Rate 18 Blood Pressure 94/50 L 115/58 L Pulse Oximetry 95 Oxygen Delivery Method Nasal Cannula Oxygen Flow Rate 2 11/02/22 23:00 11/02/22 23:30 11/02/22 23:30 Pulse Rate 94 H 90 Respiratory Rate 21 12 Blood Pressure 109/69 Pulse Oximetry 98 96 Oxygen Delivery Method Nasal Cannula Nasal Cannula Oxygen Flow Rate 2 2 11/03/22 00:00 11/03/22 00:00 11/03/22 00:30 Pulse Rate 93 H Respiratory Rate 11 L Blood Pressure 119/71 114/71 Pulse Oximetry 96 Oxygen Delivery Method Oxygen Flow Rate 11/03/22 00:30 11/03/22 01:00 11/03/22 01:00 Pulse Rate 91 H 95 H Respiratory Rate 12 13 Blood Pressure 102/72 Pulse Oximetry 99 98 Oxygen Delivery Method Oxygen Flow Rate 11/03/22 01:30 11/03/22 02:00 11/03/22 02:00 Pulse Rate 85 88 Respiratory Rate 10 L 17 Blood Pressure 125/74 Pulse Oximetry 98 95 Oxygen Delivery Method Oxygen Flow Rate 11/03/22 02:30 11/03/22 02:30 11/03/22 03:00 Pulse Rate 91 H Respiratory Rate 11 L Blood Pressure 128/69 121/71 Pulse Oximetry 97 Oxygen Delivery Method Oxygen Flow Rate 11/03/22 03:00 11/03/22 03:30 11/03/22 03:30 Pulse Rate 95 H 91 H Respiratory Rate 12 13 Blood Pressure 118/73 Pulse Oximetry 98 98 Oxygen Delivery Method Oxygen Flow Rate 11/03/22 04:00 11/03/22 04:00 11/03/22 04:30 Pulse Rate 95 H Respiratory Rate 18 Blood Pressure 118/78 127/81 Pulse Oximetry 99 Oxygen Delivery Method Oxygen Flow Rate 11/03/22 04:30 11/03/22 05:00 11/03/22 05:00 Pulse Rate 96 H 98 H Respiratory Rate 13 13 Blood Pressure 121/77 Pulse Oximetry 99 98 Oxygen Delivery Method Oxygen Flow Rate 11/03/22 05:30 11/03/22 05:30 Pulse Rate 102 H Respiratory Rate 14 Blood Pressure 122/81 Pulse Oximetry 96 Oxygen Delivery Method Oxygen Flow Rate MDM - Alcohol Lab Data Result diagrams: 11/02/22 18:46 11/02/22 18:46 Labs: Lab Results 11/02/22 11/02/22 11/02/22 Range/Units 18:46 18:46 18:46 WBC 12.4 H D (4.5-11.0) X10^3/uL RBC 4.60 (4.5-5.9) X10^6/uL Hgb 13.5 (13.5-17.5) g/dL Hct 41.0 (41-53) % MCV 89.0 (80-100) fL MCH 29.5 (26-34) PG MCHC 33.1 (30-36) % RDW 16.3 H (11.6-14.8) % Plt Count 312 (150-400) X10^3/uL Neut % (Auto) 62.5 (50-75) % Lymph % (Auto) 31.0 (25-40) % [place] % (Auto) 4.9 (3-14) % Eos % (Auto) 0.9 L (2-4) % Baso % (Auto) 0.7 (0-2) % Neut # (Auto) 7800 H (6021-7662) /uL Lymph # (Auto) 3800 (1773-4284) /uL [place] # (Auto) 600 (0-900) /uL Eos # (Auto) 100 (0-450) /uL Baso # (Auto) 100 (0-100) /uL Sodium 141 (137-145) mmol/L Potassium 3.9 (3.4-5.1) mmol/L Chloride 100 (98-107) mmol/L Carbon Dioxide 22 (22-32) mmol/L BUN 17 (9-20) mg/dL Creatinine 0.78 (0.66-1.25) mg/dL Estimated GFR > 60 (>60) mL/min BUN/Creatinine Ratio 21.8 (6-22) Glucose 101 H (70-100) mg/dL Calcium 9.2 (8.4-10.2) mg/dL Total Bilirubin 0.4 (0.2-1.3) mg/dL AST 37 (17-59) IU/L ALT 34 (<50) IU/L Alkaline Phosphatase 74 (38-126) U/L Total Protein 8.6 H (6.3-8.2) g/dL Albumin 4.9 (3.5-5.0) g/dL Globulin 3.7 (1.7-4.1) g/dL Albumin/Globulin Ratio 1.3 (1.0-2.8) TSH 2.24 (0.47-4.68) uIU/mL Free T4 0.90 (0.78-2.19) ng/dL Salicylates < 1.0 (<20) mg/dL Acetaminophen < 10 (10-30) ug/mL Ethyl Alcohol 281 H ( - 10) mg/dL SARS-CoV-2 (PCR) (Negative) 11/02/22 Range/Units 19:15 WBC (4.5-11.0) X10^3/uL RBC (4.5-5.9) X10^6/uL Hgb (13.5-17.5) g/dL Hct (41-53) % MCV (80-100) fL MCH (26-34) PG MCHC (30-36) % RDW (11.6-14.8) % Plt Count (150-400) X10^3/uL Neut % (Auto) (50-75) % Lymph % (Auto) (25-40) % [place] % (Auto) (3-14) % Eos % (Auto) (2-4) % Baso % (Auto) (0-2) % Neut # (Auto) (3715-0930) /uL Lymph # (Auto) (7072-7810) /uL [place] # (Auto) (0-900) /uL Eos # (Auto) (0-450) /uL Baso # (Auto) (0-100) /uL Sodium (137-145) mmol/L Potassium (3.4-5.1) mmol/L Chloride (98-107) mmol/L Carbon Dioxide (22-32) mmol/L BUN (9-20) mg/dL Creatinine (0.66-1.25) mg/dL Estimated GFR (>60) mL/min BUN/Creatinine Ratio (6-22) Glucose (70-100) mg/dL Calcium (8.4-10.2) mg/dL Total Bilirubin (0.2-1.3) mg/dL AST (17-59) IU/L ALT (<50) IU/L Alkaline Phosphatase (38-126) U/L Total Protein (6.3-8.2) g/dL Albumin (3.5-5.0) g/dL Globulin (1.7-4.1) g/dL Albumin/Globulin Ratio (1.0-2.8) TSH (0.47-4.68) uIU/mL Free T4 (0.78-2.19) ng/dL Salicylates (<20) mg/dL Acetaminophen (10-30) ug/mL Ethyl Alcohol ( - 10) mg/dL SARS-CoV-2 (PCR) Negative (Negative) MDM Narrative Medical decision making narrative: [32 with heavy drinking history presents requesting help with alcohol Multiple etiologies for patient's symptoms considered including, but not limited to: [Alcohol intoxication, alcohol withdrawal versus other] Prior Charts reviewed: Multiple visits for the same including yesterday Labs reviewed and interpreted by myself: No significant abnormalities Patient's symptoms improved over duration of stay with above-stated therapies. Findings and discharge diagnosis discussed with patient/family followed by verbalization of understanding Return precautions discussed with patient/family whom verbalize understanding of diagnosis and plan Discharge Plan Departure Patient Disposition: Home Clinical Impression: Alcoholic intoxication, Alcohol use, unspecified with withdrawal, unspecified Instructions: DI for Alcohol Use Disorder Activity Restrictions/Additional Instructions: *You have been diagnosed with [alcohol abuse] *What to do: *Please continue to take your regular medications as directed. *Please follow up with your primary care provider in 2-3 days, call for an appointment. Let them know you were seen in the Emergency Department and that we ask that you be seen in follow up. We will electronically transmit a record of today's note if your PCP is in our system *Return to Emergency Department if you should have any new, worsening or concerning symptoms, such as [fever greater than 101 F, shaking chills, worsening pain, persistent vomiting or other bothersome symptoms] Prescriptions: No Action lorazepam 1 mg Tablet 1 mg PO BID PRN (Reason: Anxiety) losartan 50 mg tablet 100 mg PO DAILY hydroxyzine HCl 50 mg tablet 100 mg TID Label Comments: take 1 tablet by mouth twice a day olanzapine 7.5 mg tablet 7.5 mg PO BID levetiracetam 1,000 mg tablet 1,000 mg PO BID clonidine HCl 0.1 mg tablet 0.1 mg PO BID PRN (Reason: hypertensive emergency) Qty: 7 0RF acamprosate 333 mg tablet,delayed release (DR/EC) 666 mg PO TID Label Comments: TAKE TWO TABLETS BY MOUTH THREE TIMES DAILY lorazepam [Ativan] 1 mg tablet 1 mg PO TID PRN (Reason: alcohol withdrawal) Qty: 10 0RF Rx Instructions: 1 mg every 6 hours for 1 day, 1 mg every 8 hours for 1 day, 1 mg every 12 hours for 1 day 1 mg x 1 Referrals: Aman Wright DO [Primary Care Provider] - Stand Alone Forms: Patient Portal/API
--- NOTE | 2022-11-02 19:18 | CM.SWNOTE ---
[employer] Note Patient presents to ED for the 3rd time in the last 24 hours due to ETOH withdrawal. Patient d/c'd to home this morning with rx for Ativan to detox at home, it was reported that he did not make it to home as his father stated he could not return. Patient has hx of 46 ED encounters within the last 12 months. Patient endorses to RN that he is established with IOP. Patient presents to ED with BAL toxicology of 281, earlier this morning it was 217. Patient has hx of AA, IOP and inpatient stays regarding substance use. Patient was transferred to [facility] in February 2022. [employer] endorses to ED provider Dr. Ortiz that patient would benefit from [facility]AG[facility] Wells's Law Evaluation. [employer] to evaluate patient upon medical clearance. [employer] calls patient's Patrick Hide Examiner Jose Miguel Ocampo (Ph. # [phone]) and leaves . Plan: ED provider and [employer] to evaluate patient further upon medical clearance. Hetal Rosa, LIME HIDE INSPECTOR
[2022-11-02 19:53] LABS: Thyroid Stimulating Hormone 2.24 uIU/mL (0.47-4.68)
[2022-11-02 19:55] LABS: COVID19 -Nasal RAPID Negative (Negative)
[2022-11-03] VITALS (14 sets, daily range): BP systolic 102–144; BP diastolic 69–87; PULSE 85–113; RESP 10–23; O2SAT 95–99
[2022-11-03] MEDS: PHENobarbital 65 MG/ML VIAL 260 MG IV (05:52)
== END 2022-11-03 06:20 | disposition home or self-care (01) ==
PROVIDERS: Emergency Provider Emergency Medicine; PCP Family Medicine
DX: F10.139 Alcohol abuse with withdrawal, unspecified (principal); Y90.8 Blood alcohol level of 240 mg/100 ml or more
CPT/HCPCS: 80053; 80320; 80329; 84439; 84443; 85025; 87635; 99284; C9803; G0480; J2560